=== PATIENT | male | born 1940 | race Caucasian/White ===

== ENCOUNTER 2023-11-30 15:32 | Inpatient (IN) | payer MEDICARE, OTHER, SELFPAY ==
[2023-11-30] VITALS (8 sets, daily range): BP systolic 99–127; BP diastolic 58–72; PULSE 91–122; RESP 16–30; TEMP 36.7–37.1; O2SAT 95–100; BMI 21.3
--- NOTE | ~2023-11-30 | XR_ITS ---
XR chest 2V 11/30/2023 16:38 Indication: Shortness of breath with chest pain Procedure: 2 view chest Comparison: No prior studies for comparison. Findings: Heart size normal. There is left basilar atelectasis. No focal air space disease, pulmonary edema, pleural effusion or suspected pneumothorax. There is a coronary artery stent. Impression: 1: Left basilar atelectasis. Reviewed, dictated and finalized at location B. Impression: 1: Left basilar atelectasis.
--- NOTE | ~2023-11-30 | XR_ITS ---
XR chest 2V DATE: 12/02/2023 12:46 INDICATION: Pneumonia TECHNIQUE: AP and lateral views COMPARISON: 11/30/2023 2 view chest 11/30/2023 CTA chest FINDINGS: Normal heart size. Coronary artery calcification. Aortic calcification. No hilar or mediast inal enlargement. No pulmonary infiltrate or consolidation, pleural effusion or pulmonary vascular congestion or pneumo thorax. Osteopenia. Degenerative spurring and dextro scoliosis of the thoracic spine. IMPRESSION: Coronary artery calcification Aortic calcification No active cardiopulmonary disease Osteopenia Reviewed, dictated and finalized at location A.
--- NOTE | ~2023-11-30 | CT_ITS ---
EXAMINATION: CT brain wo con DATE: 11/30/2023 18:59 INDICATION: generalized weakness . TECHNIQUE: Computed tomography (CT) of the head was performed without intravenous contrast. The mA wa s adjusted according to patient size. Iterative reconstruction technique was employed. The dose-lengt h product was 605.33 mGy-cm. COMPARISON: None. FINDINGS: No acute intracranial hemorrhage or extra-axial fluid collection. No hydrocephalus, mass, or herniation. No acute ischemic infarct. Unremarkable dural venous sinus attenuation. No acute osseous abnormality. The aerated spaces are clear. Moderate atrophy and chronic white matter change. Atherosclerotic intracranial calcification. Bilater al lens replacements. Chronic appearing left medial orbital wall fracture. IMPRESSION: No acute intracranial process. Reviewed, dictated and finalized at location K.
--- NOTE | ~2023-11-30 | CT_ITS ---
EXAMINATION: CTA chest PE protocol DATE: 11/30/2023 17:55 INDICATION: hypoxia, tachycardia. TECHNIQUE: Computed tomography angiography (CTA) of the chest was performed with 100 mL Omnipaque-350 intravenous contrast timed to evaluate the pulmonary arteries. Coronal maximum intensity projection 3D-reconstructions were created by the technologist. The dose-length product (DLP) was 458.35 mGy-cm. Automated exposure control and iterative reconstruction technique were employed. COMPARISON: X-ray chest, same date. FINDINGS: Lung parenchyma and airways: Clear. Pleura: Unremarkable. Thoracic inlet, axillae and chest wall: Unremarkable. Thoracic aorta: No significant dilation. No dissection. Mediastinum: Dilated central pulmonary arteries, as can be seen with pulmonary arterial hypertension. Heart and pericardium: Normal. Coronary artery calcifications: Moderate. Upper abdomen: No significant finding. Bones: No acute osseous finding. Pulmonary arteries: Study quality: Adequate. No pulmonary emboli detected. IMPRESSION: No CT evidence of acute pulmonary embolus. No acute process detected in the chest. Reviewed, dictated and finalized at location K.
--- NOTE | 2023-11-30 16:18 | ECG_ITS ---
Measurements Intervals [facility] Rate: 116 P: 64 NC: 174 QRS: 64 QRSD: 75 T: 78 QT: 319 QTc: 445 Interpretive Statements SINUS TACHYCARDIA CANNOT RULE OUT SEPTAL INFARCT, AGE INDETERMINATE MINIMAL Q WAVES- HIGH LATERAL LEADS BASELINE ARTIFACT- I, II, AVR, AVL ABNORMAL ECG NO PREVIOUS ECG AVAILABLE FOR COMPARISON Electronically Signed On 11-30-2023 16:29:24 CDT by Shayan Solorzano D.O.
--- NOTE | 2023-11-30 16:29 | ED.SOB ---
HPI - SOB/Dyspnea General Chief Complaint: Shortness of Breath/Dyspnea <Eliz Ma PA-C - Last Filed: 12/02/23 10:16> Stated Complaint: shortness of breath <Eliz Ma PA-C - Last Filed: 12/02/23 10:16> Time Seen by Provider: 11/30/23 16:15 <Eliz Ma PA-C - Last Filed: 12/02/23 10:16> Focused HPI: This is an 83-year-old male that presents to the emergency department for shortness of breath. Ongoing over the last couple of weeks. Reports he was seen at a another hospital for this and hospitalized for 3 days. They were unsure what was causing his symptoms. His family member brought him in here for further evaluation. Reports a cough. Denies fever, chest pain or lower extremity edema. GENERAL: Elderly, well-nourished, and in no acute distress. HEAD: Normocephalic, atraumatic. CHEST: Clear to auscultation. ?No respiratory distress. HEART: Tachycardic, regular rhythm.? NEURO: ?Alert and oriented x3. Patient screened in triage and initial orders placed.? ?Additional care and disposition to be based upon?diagnostic testing and treatment. <Eliz Ma PA-C - Last Filed: 12/02/23 10:16> Related Data Home Medications: Home Medications Medication Instructions Recorded Confirmed acetaminophen 500 mg tablet 500 mg BID pain 11/30/23 11/30/23 clopidogrel 75 mg tablet 75 mg DAILY 11/30/23 11/30/23 dutasteride 0.5 mg-tamsulosin ER 0.5 cap PO DAILY 11/30/23 11/30/23 0.4 mg capsule ext.release 24hr mphas famotidine 20 mg tablet 20 mg DAILY 11/30/23 11/30/23 ferrous sulfate 325 mg (65 mg 325 mg BID 11/30/23 11/30/23 iron) tablet (FeroSul) insulin glargine 100 unit/mL 10 unit subcut HS 11/30/23 12/01/23 subcutaneous solution (Lantus U-100 Insulin) isosorbide mononitrate 30 mg 30 mg PO DAILY 11/30/23 11/30/23 tablet,extended release 24 hr metformin 1,000 mg tablet 1,000 mg BID 11/30/23 11/30/23 mirabegron 25 mg tablet,extended 25 mg PO DAILY 11/30/23 11/30/23 release 24 hr (Myrbetriq) simvastatin 40 mg tablet 40 mg DAILY 11/30/23 11/30/23 <Eliz Ma PA-C - Last Filed: 12/02/23 10:16> Allergies/Adverse Reactions: Allergies Allergy/AdvReac Type Severity Reaction Status Date / Time No Known Allergies Allergy Verified 11/30/23 15:33 <Eliz Ma PA-C - Last Filed: 12/02/23 10:16> Review of Systems Review of Systems: CONST: No fever. HEENT: No sore throat C/V: No chest pain RESP: Short of breath GI: No abdominal pain but loss of appetite : No dysuria. M/S: No joint pain. SKIN: No rash. NEURO: Possible left-sided weakness compared to right for the last month PSYCH: [No depression] <Glenys Cai MD - Last Filed: 11/30/23 18:43> [facility] Past Medical History Medical History: Medical History (Updated 12/02/23 @ 10:15 by Eliz Ma PA-C) Essential hypertension History of coronary artery disease Insulin dependent diabetes mellitus <Eliz Ma PA-C - Last Filed: 12/02/23 10:16> Social History Social History: Social History Smoking status: Never smoker Second hand tobacco smoke exposure: No Alcohol intake: never Substance use: never Do You Feel Safe in your Home?: Yes Lack of Transportation: No Lack of Food: Never True Current Housing: I Have Housing Concerned About Future Housing: No Difficulty Paying Gas/Electric Bills: No Difficulty Paying for Meds: No Currently Unemployed: No Education: Associate Degree Difficulty w/ Childcare or Family Care: No Spiritual care concerns: No <Eliz Ma PA-C - Last Filed: 12/02/23 10:16> Exam Narrative: EXAMINATION OF ORGAN SYSTEMS/BODY AREAS: Constitutional: Vital signs per nursing GENERAL:[No acute distress, non-toxic appearing.] Appears quite tired. HEAD: Normal with no signs of head trauma. EYES: EOMI, conjunctiva normal ENT: Hearing grossly intact LUNGS: Nonlabo
[2023-11-30 16:37] LABS: Basophils Percent Auto 0.2 % (0.2-1.2); Eosinophils Percent Auto 0.1 % (0-4.4); Hematocrit 31.9 % (42.0-52.0); Hemoglobin 10.2 g/dL (14.0-18.0); Immature Granulocyte Absolute 0.08 K/mm3 (0.00-0.031); Lymphocytes Absolute Auto 1.88 K/mm3 (0.9-3.2); Lymphocytes Percent Auto 22.4 % (18.3-44.2); Mean Corpuscular Hemoglobin 28.1 pg (26-34); Mean Corpuscular Volume 87.9 fl (80-100); Mean Platelet Volume 10.6 fl (7.4-10.4); Monocytes Absolute Auto 1.5 K/mm3 (0.1-0.6); Monocytes Percent Auto 18.4 % (2.6-8.5); Neutrophils Absolute Auto 4.9 K/mm3 (1.3-6.7); Neutrophils Percent Auto 57.9 % (45.5-73.1); Platelet Count Result 128 k/mm3 (150-375); Red Blood Count 3.63 M/mm3 (4.6-6.20); Red Cell Distribution Width 16.7 % (11.5-14.5); White Blood Count 8.4 K/mm3 (4.5-10.0)
[2023-11-30 16:48] LABS: INR 1.1; Prothrombin Time 14.8 Seconds (11.1-14.7)
[2023-11-30 16:49] LABS: Alanine Aminotransferase 49 U/L (6-50); Albumin Level 3.2 g/dL (3.5-5.1); Alkaline Phosphatase 238 U/L (38-126); Anion Gap 8 mmol/L (4-12); Aspartate Amino Transferase 54 U/L (17-59); Blood Urea Nitrogen 20 mg/dL (9-20); Calcium 8.7 mg/dL (8.4-10.2); Carbon Dioxide 22 mmol/L (22-30); Chloride 97 mmol/L (98-107); Estimated CRCL calculation 50 ml/min; Estimated Glomerular Filt Rate > 60; Glucose 259 mg/dL (65-110); Lactic Acid Reflex 3.6 mmol/L (0.7-2.0); Potassium 4.9 mmol/L (3.4-5.0); Sodium 127 mmol/L (137-145)
[2023-11-30 17:02] LABS: D Dimer 0.87 ug/mL (<0.48)
[2023-11-30] MEDS: LACTATED RINGERS 1,000 ML 999 ML IV CONT (17:14)
[2023-11-30 17:24] LABS: NT Pro B Type Natriuretic Pept 799 pg/mL (19.9-100)
[2023-11-30 17:38] LABS: Influenza A QL RT-PCR Negative (Negative); Influenza B QL RT-PCR Negative (Negative); RSV RNA, RT-PCR Negative (Negative); SARS-CoV-2 RNA PCR Negative (Negative)
--- NOTE | 2023-11-30 18:44 | PC.NURSE ---
pt unable to urinate at this time. pt educated to use call light with any urge to urinate
[2023-11-30 18:54] LABS: Glucose Point of Care 187 mg/dl (65-105)
[2023-11-30 18:57] LABS: Troponin I < 0.012 ng/mL (0.000-0.034)
[2023-11-30 19:29] LABS: Appearance Urine Clear (Clear); Bilirubin Urine Negative (Negative); Blood Urine Negative (Negative); Color Urine Yellow (Yellow); Glucose Urine UA Negative (Negative); Ketones Urine Negative (Negative); Leukocyte Esterase Ur Negative LEU/UL (Negative); Nitrate Urine Negative (Negative); Protein Urine Negative (Negative); pH Urine 5.5 (5.0-9.0)
[2023-11-30 19:32] LABS: Add Urine Microscopic? NO
[2023-11-30 19:34] LABS: Reflex Lactic Acid Yes or No Add Lactic
[2023-11-30 20:05] LABS: Lactic Acid 1.7 mmol/L (0.7-2.0)
[2023-11-30 20:33] LABS: Glucose Point of Care 194 mg/dl (65-105)
[2023-11-30 21:00] LABS: Troponin I < 0.012 ng/mL (0.000-0.034)
[2023-11-30] MEDS: SODIUM CHLORIDE 0.9% IV 1,000 ML 100 ML IV CONT (21:05)
--- NOTE | 2023-11-30 23:01 | ADMGEN ---
This patient, Farhan Villalta, was admitted to [facility] Surg Room 322-02. Patient/family oriented to hospital policies and general routines including ID bracelet, bed and alarms, visiting hours, pain management, procedures, bathroom and other care routines, personal items, smoking policy, room service/diet, and visiting hours. Information on how to activate the Rapid Response Team has been discussed. Patient/Family are encouraged to report perceived risks to care and to ask questions if they do not understand what they are told or what they should do.
[2023-11-30 23:15] LABS: Glucose Point of Care 199 mg/dl (65-105)
[2023-12-01] VITALS (11 sets, daily range): BP systolic 92–111; BP diastolic 56–78; PULSE 82–97; RESP 15–18; TEMP 36.2–37.3; O2SAT 98–99
--- NOTE | 2023-12-01 | ECHO_ITS ---
Patient Info Name: Farhan Villalta Age: 83 years : 1940 Gender: Male Ht: 72 in Wt: 160 lbs BSA: 1.92 m2 HR: 83 bpm BP: 111 / 78 mmHg Heart Rhythm: Sinus Rhythm Technical Quality: Good Exam Date: 12/01/2023 11:33 AM Exam Location: Echo Lab Patient Status: Inpatient Admit Date: 11/30/2023 Staff Ordering Physician: Natanael Crawford MD Hand Miter Operator: Rebecca Baumann RDCS Attending Provider: Geoff Ochoa MD Referring Physician: Yvette MCDOWELL; Exam Type: CA echo doppler color flow Study Info Indications - chf Complete two-dimensional, color flow and Doppler transthoracic echocardiogram is performed. Summary 1. Complete two-dimensional, color flow and Doppler transthoracic echocardiogram is performed. 2. Technically difficult study with limited views. Definity contrast enhancement administered. 3. Left ventricular chamber dimension is normal. 4. Left ventricular systolic function is normal, estimated at 55-60% with hypokinesis of the apical lateral and mid anterolateral wall. However, given poor endomyocardial border definition more definitive assessment limited. 5. There is no increased left ventricular wall thickness. 6. The left ventricular diastolic function is grade I diastolic dysfunction. Left Ventricle Left ventricular chamber dimension is normal. Left ventricular systolic function is normal, estimated at 55-60% with hypokinesis of the apical lateral and mid anterolateral wall. However, given poor endomyocardial border definition more definitive assessment limited. There is no increased left ventricular wall thickness. The left ventricular diastolic function is grade I diastolic dysfunction. Technically difficult study with limited views. Definity contrast enhancement administered. Right Ventricle Right ventricular chamber dimension is normal. Right ventricular systolic function is normal. Left Atria Left atrial chamber dimension is normal. Right Atria Right atrial chamber dimension is normal. Aortic Valve The aortic valve is not well visualized. There is no aortic valve stenosis. There is trace aortic valve regurgitation. Pulmonic Valve The pulmonic valve is not well visualized. Mitral Valve The mitral valve has thickened leaflets. There is trace mitral valve regurgitation. The mitral valve annulus is moderately calcified. Tricuspid Valve The tricuspid valve leaflets are normal. There is trace tricuspid valve regurgitation. No pulmonary hypertension, estimated pulmonary arterial systolic pressure is 18 mmHg. Pericardium/Pleural The pericardium appears not well visualized. There is trivial pericardial effusion. Inferior Vena Cava Normal inferior vena cava with >50% collapse upon inspiration consistent with normal right atrial pressure, 5 mmHg. Aorta The aortic root size at the sinus of Valsalva is normal. There is mild aortic atherosclerosis. Left Ventricular Outflow Tract Name Value Normal LVOT 2D LVOT Diameter 2.0 cm LVOT Doppler LVOT Peak Gradient 3 mmHg LVOT Mean Gradient 2 mmHg LVOT VTI 19 cm LVOT VTI/AV VTI Ratio 1.2 LVOT Stroke Volume
[2023-12-01 07:41] LABS: Glucose Point of Care 138 mg/dl (65-105)
--- NOTE | 2023-12-01 08:38 | PM.IMHP ---
H&P: HPI History of Present Illness Date/Time: 12/01/23 08:38 Chief Complaint: SOB 2 days Generalized weakness Narrative: 83 years old will set her up with his came in the emergency room with complaints of generalized weakness and shortness of breath going up last 2 days. Patient has history of hypertension contacted and diabetes and was taking his medications as prescribed. According to the patient for the last few days without any better, started having generalized weakness and increased shortness of breath. Patient denies any orthopnea or proximal nocturnal dyspnea. Patient is a chest pain. Patient denies any fever chills. ER workup showed that patient has increased BNP level possible heart failure. Patient CT chest was negative for pulmonary embolism. Patient cardiac enzymes are negative. Patient is admitted for further evaluation treatment. Review of Systems Review of Systems: All systems reviewed & are unremarkable except as noted in HPI and below (the history and physical examination.) [facility] Social History Social History Smoking status: Never smoker Second hand tobacco smoke exposure: No Alcohol intake: never Substance use: never Do You Feel Safe in your Home?: Yes Lack of Transportation: No Lack of Food: Never True Current Housing: I Have Housing Concerned About Future Housing: No Difficulty Paying Gas/Electric Bills: No Difficulty Paying for Meds: No Currently Unemployed: No Education: Associate Degree Difficulty w/ Childcare or Family Care: No Spiritual care concerns: No Meds Home Medications and Allergies Home Medications Medication Instructions Recorded Confirmed Type acetaminophen 500 mg tablet 500 mg BID pain 11/30/23 11/30/23 History clopidogrel 75 mg tablet 75 mg DAILY 11/30/23 11/30/23 History dutasteride 0.5 mg-tamsulosin ER 0.5 cap PO DAILY 11/30/23 11/30/23 History 0.4 mg capsule ext.release 24hr mphas famotidine 20 mg tablet 20 mg DAILY 11/30/23 11/30/23 History ferrous sulfate 325 mg (65 mg 325 mg BID 11/30/23 11/30/23 History iron) tablet (FeroSul) insulin glargine 100 unit/mL 10 unit subcut HS 11/30/23 12/01/23 History subcutaneous solution (Lantus U-100 Insulin) isosorbide mononitrate 30 mg 30 mg PO DAILY 11/30/23 11/30/23 History tablet,extended release 24 hr metformin 1,000 mg tablet 1,000 mg BID 11/30/23 11/30/23 History mirabegron 25 mg tablet,extended 25 mg PO DAILY 11/30/23 11/30/23 History release 24 hr (Myrbetriq) simvastatin 40 mg tablet 40 mg DAILY 11/30/23 11/30/23 History Allergies Allergy/AdvReac Type Severity Reaction Status Date / Time No Known Allergies Allergy Verified 11/30/23 15:33 Vital Signs Vital Signs - 24 hr 11/30/23 16:11 11/30/23 16:50 11/30/23 16:50 Temperature 37.1 C Pulse Rate 120 H 122 H Respiratory Rate 18 Blood Pressure 99/72 L Pulse Oximetry 100 98 Oxygen Delivery Room Air Room Air 11/30/23 16:51 11/30/23 17:16 11/30/23 19:58 Temperature Pulse Rate 121 H 116 H 97 Respiratory Rate 22 H 23 H 18 Blood Pressure 123/62 110/67 101/58 L Pulse Oximetry 97 95 95 Oxygen Delivery 11/30/23 21:57 11/30/23 22:37 11/30/23 23:20 Temperature 36.7 C Pulse Rate 91 91 95 Respiratory Rate 30 H 29 H 16 Blood Pressure 100/60 105/62 127/68 Pulse Oximetry 97 96 96 Oxygen Delivery 12/01/23 00:00 12/01/23 04:00 12/01/23 05:18 Temperature 36.2 C L Pulse Rate 90 82 83 Respiratory Rate 18 Blood Pressure 111/78 Pulse Oximetry 99 Oxygen Delivery Exam Narrative: EXAMINATION OF ORGAN SYSTEMS/BODY AREAS: Constitutional: Vital signs per nursing GENERAL:[No acute distress, non-toxic appearing.] Appears quite tired. HEAD:? Normal with no signs of head trauma. EYES:? EOMI, conjunctiva normal ENT:? Hearing grossly intact LUNGS: AIr entry decreased, few rales at bases HEART:? Tachycardic ABD:? [Sof
[2023-12-01] MEDS: ACETAMINOPHEN 500 MG TABLET PO ×2 (09:37→16:43)
[2023-12-01] MEDS: ISOSORBIDE MONONITRATE 30 MG TAB.ER.24H PO (09:37)
[2023-12-01] MEDS: SIMVASTATIN 20 MG TABLET 40 MG PO (09:37)
[2023-12-01] MEDS: FAMOTIDINE 20 MG TABLET PO (09:37)
[2023-12-01] MEDS: MIRABEGRON 25 MG ER TABLET PO (09:37)
[2023-12-01] MEDS: FUROSEMIDE INJ 40 MG/4 ML VIAL IV PUSH (09:38)
[2023-12-01] MEDS: CLOPIDOGREL BISULFATE 75 MG TABLET PO (09:38)
[2023-12-01] MEDS: POTASSIUM CHLORIDE 20 MEQ ER TABLET PO (09:38)
[2023-12-01] MEDS: FERROUS SULFATE DRIED 142 MG TABCR PO (09:38)
[2023-12-01 11:47] LABS: Glucose Point of Care 243 mg/dl (65-105)
[2023-12-01] MEDS: DUTASTERIDE 0.5 MG CAPSULE PO (16:43)
[2023-12-01] MEDS: TAMSULOSIN HCL 0.4 MG CAPSULE PO (16:43)
[2023-12-01 16:44] LABS: Glucose Point of Care 246 mg/dl (65-105)
[2023-12-01] MEDS: INSULIN GLARGINE (*BKC) 100 UNITS/ML 10 UNITS SUB-Q (19:59)
[2023-12-01 20:35] LABS: Glucose Point of Care 217 mg/dl (65-105)
[2023-12-02] VITALS (10 sets, daily range): BP systolic 84–116; BP diastolic 50–69; PULSE 74–104; RESP 16–20; TEMP 36.5–37.4; O2SAT 94–97
[2023-12-02 07:56] LABS: Glucose Point of Care 176 mg/dl (65-105)
[2023-12-02] MEDS: MIRABEGRON 25 MG ER TABLET PO (09:04)
[2023-12-02] MEDS: ISOSORBIDE MONONITRATE 30 MG TAB.ER.24H PO (09:04)
[2023-12-02] MEDS: ACETAMINOPHEN 500 MG TABLET PO ×2 (09:04→17:04)
[2023-12-02] MEDS: FAMOTIDINE 20 MG TABLET PO (09:05)
[2023-12-02] MEDS: SIMVASTATIN 20 MG TABLET 40 MG PO (09:05)
[2023-12-02] MEDS: DUTASTERIDE 0.5 MG CAPSULE PO (09:05)
[2023-12-02] MEDS: CLOPIDOGREL BISULFATE 75 MG TABLET PO (09:05)
[2023-12-02] MEDS: FERROUS SULFATE DRIED 142 MG TABCR PO (09:05)
[2023-12-02] MEDS: FUROSEMIDE INJ 40 MG/4 ML VIAL IV PUSH ×2 (09:05→17:04)
[2023-12-02] MEDS: POTASSIUM CHLORIDE 20 MEQ ER TABLET PO ×2 (09:05→17:04)
[2023-12-02] MEDS: TAMSULOSIN HCL 0.4 MG CAPSULE PO (09:06)
[2023-12-02] MEDS: ENOXAPARIN 40 MG/0.4 ML SYRINGE SUB-Q (09:11)
[2023-12-02 11:37] LABS: Glucose Point of Care 192 mg/dl (65-105)
[2023-12-02 12:05] LABS: Hematocrit 32.3 % (42.0-52.0); Hemoglobin 10.4 g/dL (14.0-18.0); Mean Corpuscular HGB Conc 32.2 g/dl (32-36); Mean Corpuscular Hemoglobin 27.8 pg (26-34); Mean Corpuscular Volume 86.4 fl (80-100); Mean Platelet Volume 11.1 fl (7.4-10.4); Platelet Count Result 129 k/mm3 (150-375); Red Blood Count 3.74 M/mm3 (4.6-6.20); Red Cell Distribution Width 16.8 % (11.5-14.5); White Blood Count 8.6 K/mm3 (4.5-10.0)
[2023-12-02 12:32] LABS: Alanine Aminotransferase 49 U/L (6-50); Albumin Level 3.1 g/dL (3.5-5.1); Alkaline Phosphatase 262 U/L (38-126); Anion Gap 5 mmol/L (4-12); Aspartate Amino Transferase 61 U/L (17-59); Bilirubin,Total 0.9 mg/dL (0.2-1.3); Blood Urea Nitrogen 17 mg/dL (9-20); Calcium 8.6 mg/dL (8.4-10.2); Carbon Dioxide 25 mmol/L (22-30); Chloride 97 mmol/L (98-107); Estimated CRCL calculation 59 ml/min; Estimated Glomerular Filt Rate > 60; Glucose 177 mg/dL (65-110); Potassium 4.2 mmol/L (3.4-5.0); Sodium 127 mmol/L (137-145)
[2023-12-02 12:44] LABS: NT Pro B Type Natriuretic Pept 965 pg/mL (19.9-100); Troponin I < 0.012 ng/mL (0.000-0.034)
--- NOTE | 2023-12-02 12:44 | PM.IMPN ---
Progress Note: A&P Assessment and Plan (1) Systolic CHF, acute on chronic: Code(s): I50.23 - Acute on chronic systolic (congestive) heart failure Status: Acute Assessment and Plan: With plan is to continue home medication and start IV Lasix. 2D echo. Monitor I's and O's. (2) History of coronary artery disease: Code(s): Z86.79 - Personal history of other diseases of the circulatory system Status: Inactive Assessment and Plan: Stable on current medications, will continue current treatment. (3) Essential hypertension: Code(s): I10 - Essential (primary) hypertension Status: Inactive Assessment and Plan: Stable on current medications, will continue current treatment. (4) Dyslipidemia: Code(s): E78.5 - Hyperlipidemia, unspecified Status: Acute Assessment and Plan: Stable on current medications, will continue current treatment. (5) Insulin dependent diabetes mellitus: Status: Inactive Assessment and Plan: Stable on current medications, will continue current treatment. (6) Hyponatremia: Code(s): E87.1 - Hypo-osmolality and hyponatremia Status: Acute Assessment and Plan: Sodium is 127 today repeat in am Subjective Date/time seen: 12/02/23 12:44 Interval history: Patient was seen during the morning round today Mild sob, no chest pain. No abdominal pain, no nausea Mood stable. Review of Systems Review of Systems: All systems reviewed & are unremarkable except as noted in HPI and below (the history and physical examination.) Exam Narrative: EXAMINATION OF ORGAN SYSTEMS/BODY AREAS: Constitutional: Vital signs per nursing GENERAL:[No acute distress, non-toxic appearing.] Appears quite tired. HEAD:? Normal with no signs of head trauma. EYES:? EOMI, conjunctiva normal ENT:? Hearing grossly intact LUNGS: AIr entry decreased, few rales at bases HEART:? Tachycardic ABD:? [Soft], [nontender to palpation] EXT: One plus edema SKIN:? [No rashes or lesions.] NEURO: [Alert and oriented x 3. No drift with upper or lower extremities but potentially slightly weaker to RLE compared to LLE. Normal coordination] PSYCH: Normal affect Objective Data Vital Signs Vital Signs: Vital Signs - 24 hr 12/01/23 14:53 12/01/23 15:14 12/01/23 15:27 Temperature 36.7 C Pulse Rate 91 Respiratory Rate 15 Blood Pressure 92/56 L 110/58 L Pulse Oximetry 98 Oxygen Delivery Room Air 12/01/23 16:00 12/01/23 20:00 12/01/23 22:25 Temperature 37.3 C Pulse Rate 97 91 Respiratory Rate 18 Blood Pressure 110/63 Pulse Oximetry 98 Oxygen Delivery Room Air 12/01/23 20:00 12/02/23 00:00 12/02/23 04:00 Temperature Pulse Rate 93 97 87 Respiratory Rate Blood Pressure Pulse Oximetry Oxygen Delivery 12/02/23 06:58 12/02/23 08:00 Temperature 37.1 C Pulse Rate 88 Respiratory Rate 20 Blood Pressure 116/69 Pulse Oximetry 97 96 Oxygen Delivery Room Air Intake/Output Intake/Output: Intake & Output 11/29/23 11/30/23 12/01/23 12/02/23 23:59 23:59 23:59 23:59 Intake Total 1180 705 342 Output Total 175 325 Balance 1005 705 17 Meds/Results Medications: Active Medications Generic Name Dose Route Start Last Admin Trade Name Gueroq PRN Reason Stop Dose Admin Acetaminophen 500 mg 12/01/23 09:00 12/02/23 09:04 Acetaminophen 500 Mg Tablet PO 500 mg BID JULIETA Administration Clopidogrel Bisulfate 75 mg 12/01/23 09:00 12/02/23 09:05 Clopidogrel Bisulfate 75 Mg Tablet PO 75 mg DAILY JULIETA Administration Dutasteride 0.5 mg 12/01/23 14:50 12/02/23 09:05 Dutasteride 0.5 Mg Capsule PO 01/01/24 14:49 0.5 mg DAILY JULIETA Administration Enoxaparin Sodium 40 mg 12/01/23 09:00 12/02/23 09:11 Enoxaparin 40 Mg/0.4 Ml Syringe SUB-Q 40 mg DAILY JULIETA Administration Famotidine 20 mg 12/01/23 09:00 12/02/23 09:05 Famotidine 20 Mg Tablet PO 20 mg
[2023-12-02 16:36] LABS: Glucose Point of Care 249 mg/dl (65-105)
[2023-12-02] MEDS: INSULIN GLARGINE (*BKC) 100 UNITS/ML 10 UNITS SUB-Q (20:31)
[2023-12-02 22:21] LABS: Glucose Point of Care 214 mg/dl (65-105)
[2023-12-03] VITALS (10 sets, daily range): BP systolic 86–129; BP diastolic 56–70; PULSE 80–99; RESP 16–18; TEMP 36.8–37.5; O2SAT 94–100; BMI 21.3
[2023-12-03 08:31] LABS: Glucose Point of Care 201 mg/dl (65-105)
[2023-12-03] MEDS: MIRABEGRON 25 MG ER TABLET PO (09:06)
[2023-12-03] MEDS: SIMVASTATIN 20 MG TABLET 40 MG PO (09:07)
[2023-12-03] MEDS: DUTASTERIDE 0.5 MG CAPSULE PO (09:07)
[2023-12-03] MEDS: ACETAMINOPHEN 500 MG TABLET PO ×2 (09:07→17:25)
[2023-12-03] MEDS: FAMOTIDINE 20 MG TABLET PO (09:07)
[2023-12-03] MEDS: TAMSULOSIN HCL 0.4 MG CAPSULE PO (09:07)
[2023-12-03] MEDS: FERROUS SULFATE DRIED 142 MG TABCR PO (09:07)
[2023-12-03] MEDS: CLOPIDOGREL BISULFATE 75 MG TABLET PO (09:07)
[2023-12-03] MEDS: ISOSORBIDE MONONITRATE 30 MG TAB.ER.24H PO (09:07)
[2023-12-03] MEDS: POTASSIUM CHLORIDE 20 MEQ ER TABLET PO ×2 (09:08→17:24)
[2023-12-03] MEDS: ENOXAPARIN 40 MG/0.4 ML SYRINGE SUB-Q (09:21)
[2023-12-03 12:00] LABS: Glucose Point of Care 249 mg/dl (65-105)
[2023-12-03 12:13] LABS: Anion Gap 8 mmol/L (4-12); Blood Urea Nitrogen 23 mg/dL (9-20); Calcium 8.4 mg/dL (8.4-10.2); Carbon Dioxide 24 mmol/L (22-30); Chloride 94 mmol/L (98-107); Estimated CRCL calculation 53 ml/min; Estimated Glomerular Filt Rate > 60; Glucose 219 mg/dL (65-110); Potassium 4.3 mmol/L (3.4-5.0); Sodium 126 mmol/L (137-145)
[2023-12-03 14:17] LABS: Basophils Percent Auto 0.3 % (0.2-1.2); Eosinophils Percent Auto 0.4 % (0-4.4); Hematocrit 33.4 % (42.0-52.0); Hemoglobin 10.4 g/dL (14.0-18.0); Immature Granulocyte Absolute 0.05 K/mm3 (0.00-0.031); Immature Granulocyte Percent A 0.6 % (0-0.5); Lymphocytes Absolute Auto 1.42 K/mm3 (0.9-3.2); Lymphocytes Percent Auto 15.9 % (18.3-44.2); Mean Corpuscular HGB Conc 31.1 g/dl (32-36); Mean Corpuscular Hemoglobin 27.7 pg (26-34); Mean Corpuscular Volume 88.8 fl (80-100); Mean Platelet Volume 11.5 fl (7.4-10.4); Monocytes Absolute Auto 1.5 K/mm3 (0.1-0.6); Monocytes Percent Auto 16.2 % (2.6-8.5); Neutrophils Absolute Auto 5.9 K/mm3 (1.3-6.7); Neutrophils Percent Auto 66.6 % (45.5-73.1); Platelet Count Result 131 k/mm3 (150-375); Red Blood Count 3.76 M/mm3 (4.6-6.20); Red Cell Distribution Width 17.1 % (11.5-14.5); White Blood Count 8.9 K/mm3 (4.5-10.0)
--- NOTE | 2023-12-03 15:24 | PM.IMPN ---
Progress Note: A&P Assessment and Plan (1) Systolic CHF, acute on chronic: Code(s): I50.23 - Acute on chronic systolic (congestive) heart failure Status: Chronic Assessment and Plan: IV Lasix. ECHO Monitor I's and O's. (2) History of coronary artery disease: Code(s): Z86.79 - Personal history of other diseases of the circulatory system Status: Acute Assessment and Plan: continue home meds (3) Essential hypertension: Code(s): I10 - Essential (primary) hypertension Status: Chronic Assessment and Plan: continue home meds (4) Dyslipidemia: Code(s): E78.5 - Hyperlipidemia, unspecified Status: Chronic Assessment and Plan: continue current treatment. (5) Insulin dependent diabetes mellitus: Status: Chronic Assessment and Plan: accuchecks hypoglycemic protocol HS and low dose sliding scale ordered (6) Hyponatremia: Code(s): E87.1 - Hypo-osmolality and hyponatremia Status: Acute Assessment and Plan: Sodium is 126 today 2 bags NaCl sodium chloride tabs BID check urine pending Subjective Date/time seen: 12/03/23 15:24 Interval history: Patient reports he is about the same. Reports mild sob, denies chest pain. Will d/c [place] as repeat CXR indicates no signs of PNA. Patient remains hyponatremic. Will consult cardiology regarding abnormal ECHO. Edema and lungs improving. Review of Systems Review of Systems: All systems reviewed & are unremarkable except as noted in HPI and below (the history and physical examination.) Exam Narrative: GENERAL:No acute distress, non-toxic appearing sitting up in chair. EYES:? EOMI, PERRLA LUNGS: Lungs clear, mildly diminished in right lower lobe without wheezing. HEART:? RRR ABD:? soft, non-tender, BS present EXT: no edema present this am SKIN:?no wounds, rash or lesions NEURO: Alert and oriented x 3. No focal deficits. PSYCH: Normal affect Objective Data Vital Signs Vital Signs: Vital Signs - 24 hr 12/02/23 16:00 12/02/23 22:00 12/02/23 22:51 Temperature 99.3 F Pulse Rate 102 H 74 Respiratory Rate 18 Blood Pressure 84/50 L 90/60 L Pulse Oximetry 96 Oxygen Delivery 12/02/23 20:00 12/03/23 00:00 12/03/23 05:56 Temperature 99.5 F Pulse Rate 100 82 95 Respiratory Rate 18 Blood Pressure 100/70 Pulse Oximetry 95 Oxygen Delivery 12/03/23 04:00 12/03/23 08:00 Temperature Pulse Rate 93 Respiratory Rate Blood Pressure Pulse Oximetry 96 Oxygen Delivery Room Air Intake/Output Intake/Output: Intake & Output 11/30/23 12/01/23 12/02/23 12/03/23 23:59 23:59 23:59 23:59 Intake Total 1180 705 512 460 Output Total 175 725 500 Balance 1005 705 -213 -40 Meds/Results Medications: Active Medications Generic Name Dose Route Start Last Admin Trade Name Freq PRN Reason Stop Dose Admin Acetaminophen 500 mg 12/01/23 09:00 12/03/23 09:07 Acetaminophen 500 Mg Tablet PO 500 mg BID JULIETA Administration Clopidogrel Bisulfate 75 mg 12/01/23 09:00 12/03/23 09:07 Clopidogrel Bisulfate 75 Mg Tablet PO 75 mg DAILY JULIETA Administration Dutasteride 0.5 mg 12/01/23 14:50 12/03/23 09:07 Dutasteride 0.5 Mg Capsule PO 01/01/24 14:49 0.5 mg DAILY JULIETA Administration Enoxaparin Sodium 40 mg 12/01/23 09:00 12/03/23 09:21 Enoxaparin 40 Mg/0.4 Ml Syringe SUB-Q 40 mg DAILY JULIETA Administration Famotidine 20 mg 12/01/23 09:00 12/03/23 09:07 Famotidine 20 Mg Tablet PO 20 mg DAILY JULIETA Administration Ferrous Sulfate 142 mg 12/01/23 08:55 12/03/23 09:07 Ferrous Sulfate Dried 142 Mg Tabcr PO 142 mg DAILY@0800 JULIETA Administration Furosemide 40 mg 12/02/23 17:00 12/02/23 17:04 Furosemide Inj 40 Mg/4 Ml Vial IV PUSH 40 mg BID JULIETA Administration Insulin Glargine 10 units 12/01/23 21:00 12/02/23 20:31 Insulin Glargine (*Bkc) 100 U
[2023-12-03 16:35] LABS: Glucose Point of Care 219 mg/dl (65-105)
[2023-12-03] MEDS: INSULIN ASPART (*BKC) 100 UNITS/ML SUB-Q ×2 (17:25→21:50)
[2023-12-03] MEDS: SODIUM CHLORIDE 500 MG TABLET PO (17:34)
[2023-12-03 17:45] LABS: Alanine Aminotransferase 39 U/L (6-50); Albumin Level 2.8 g/dL (3.5-5.1); Alkaline Phosphatase 223 U/L (38-126); Anion Gap 6 mmol/L (4-12); Aspartate Amino Transferase 46 U/L (17-59); Bilirubin,Total 0.7 mg/dL (0.2-1.3); Blood Urea Nitrogen 24 mg/dL (9-20); Calcium 8.1 mg/dL (8.4-10.2); Carbon Dioxide 24 mmol/L (22-30); Chloride 96 mmol/L (98-107); Estimated CRCL calculation 59 ml/min; Estimated Glomerular Filt Rate > 60; Glucose 201 mg/dL (65-110); Sodium 126 mmol/L (137-145)
[2023-12-03] MEDS: INSULIN GLARGINE (*BKC) 100 UNITS/ML 10 UNITS SUB-Q (20:21)
[2023-12-03 21:42] LABS: Glucose Point of Care 201 mg/dl (65-105)
[2023-12-03] MEDS: MELATONIN 5 MG TABLET PO (22:40)
[2023-12-04] VITALS: PULSE 93
[2023-12-04 04:00] VITALS: PULSE 92
[2023-12-04 06:00] VITALS: BP 102/60; PULSE 95; RESP 16; TEMP 36.6; O2SAT 95
[2023-12-04 06:02] LABS: Creatinine Urine 113.4 mg/dL
[2023-12-04 06:07] LABS: Sodium Urine Random 42 meq/L
[2023-12-04 07:10] LABS: Hemoglobin 10.2 g/dL (14.0-18.0); Mean Corpuscular HGB Conc 30.9 g/dl (32-36); Mean Corpuscular Hemoglobin 27.6 pg (26-34); Mean Corpuscular Volume 89.2 fl (80-100); Mean Platelet Volume 11.4 fl (7.4-10.4); Platelet Count Result 133 k/mm3 (150-375); Red Cell Distribution Width 16.9 % (11.5-14.5); White Blood Count 7.7 K/mm3 (4.5-10.0)
--- NOTE | 2023-12-04 07:11 | PM.CNCAR ---
Assessment and Plan Assessment and plan (1) History of coronary artery disease: Code(s): Z86.79 - Personal history of other diseases of the circulatory system Status: Acute Assessment and Plan: History of CAD with previous interventions as detailed in the HPI. His most recent cardiac cath was in June 2023 which showed a diffusely diseased LAD, patent RCA stent, and 90% stenosis in the PDA which was intervened upon at that time. He reports no chest pain. CAD seems stable. Continue Plavix Unsure why he is not on ASA, it is on his outpatient medication list. Would resume unless there is a contraindication. Continue high intensity statin (2) Essential hypertension: Code(s): I10 - Essential (primary) hypertension Status: Chronic Assessment and Plan: BP at goal. Continue current medical regimen. (3) Dyslipidemia: Code(s): E78.5 - Hyperlipidemia, unspecified Status: Chronic Assessment and Plan: Continue high intensity statin (4) Shortness of breath: Code(s): R06.02 - Shortness of breath Status: Acute Assessment and Plan: Presents to the hospital with complaint of shortness of breath. Clinically he does not have any evidence of congestive heart failure, and his chest XR showed no pulmonary edema or pleural effusions. He has preserved LV systolic function with grade I diastolic dysfunction, but again does not appear to be in any decompensated heart failure. He was given 1 dose of IV furosemide and it has been held since 12/01, which is appropriate given that he appears to be euvolemic. I will discontinue the furosemide. No specific cardiac recommendations to make at this time. Cardiology will sign off. 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 Grady. History of Present Illness History of Present Illness Consult date/time: 12/04/23 07:11 Requesting physician: Rosanna Aguiar APRN Consult reason: Other (abnormal echo) Reason For Visit: generalized weakness, tachycardic, SOB Narrative: Farhan Villalta is an 83 year old male with coronary artery disease status post stenting to the LCX (2012), distal RCA (2010), and PDA (2022). He follows at [facility] with Dr. Grady. He comes to the hospital with a chief complaint of shortness of breath. He has been experiencing shortness of breath for a few weeks prior to his hospitalization. He denies any edema, orthopnea, chest pain, palpitations. He states he feels the same today as he did when he entered the hospital in terms of his breathing. Currently he is lying in bed comfortably breathing on room air. Review of Systems Review of Systems: All systems reviewed & are unremarkable except as noted in HPI and below PMFSH Past Medical History Medical History Essential hypertension History of coronary artery disease Insulin dependent diabetes mellitus Social History Social History Smoking status: Never smoker Second hand tobacco smoke exposure: No Alcohol intake: never Substance use: never Do You Feel Safe in your Home?: Yes Lack of Transportation: No Lack of Food: Never True Current Housing: I Have Housing Concerned About Future Housing: No Difficulty Paying Gas/Electric Bills: No Difficulty Paying for Meds: No Currently Unemployed: No Education: Associate Degree Difficulty w/ Childcare or Family Care: No Spiritual care concerns: No Meds Home Medications and Allergies Home Medications Medication Instructions Recorded Confirmed Type acetaminophen 500 mg tablet 500 mg BID pain 11/30/23 11/30/23 History clopidogrel 75 mg tablet 75 mg DAILY 11/30/23 11/30/23 History dutasteride 0.5 mg-tamsulosin ER 0.5 cap PO DAILY 11/30/23 11/30/23 History 0.4 mg capsule ext.release 24hr mphas famotidine 20 mg tablet 20 mg
[2023-12-04 07:35] LABS: Glucose Point of Care 190 mg/dl (65-105)
[2023-12-04 07:54] LABS: Band Neutrophils Percent 10 % (0-6); Hypochromasia 1+; Lymphocytes Absolute Manual 0.07 K/mm3 (1.1-4.5); Metamyelocytes Percent 1 %; Monocytes Absolute Manual 0.38 K/mm3 (0.1-0.90); Monocytes Percent Manual 5 % (3-9); Myelocytes Percent 1 %; Neutrophils Absolute Manual 7.08 K/mm3 (1.3-6.7); Neutrophils Percent Manual 82 % (46-73); Platelet Estimate Slightly Decreased (Adequate); Schistocytes None Seen; Total Cells Counted 100
[2023-12-04 07:55] LABS: Anisocytosis 2+; Microcytosis 1+ (NORMAL)
[2023-12-04 08:00] VITALS: PULSE 99
[2023-12-04 08:27] VITALS: O2SAT 94
[2023-12-04] MEDS: SODIUM CHLORIDE 500 MG TABLET PO (09:18)
[2023-12-04] MEDS: ISOSORBIDE MONONITRATE 30 MG TAB.ER.24H PO (09:18)
[2023-12-04] MEDS: FAMOTIDINE 20 MG TABLET PO (09:18)
[2023-12-04] MEDS: TAMSULOSIN HCL 0.4 MG CAPSULE PO (09:18)
[2023-12-04] MEDS: FERROUS SULFATE DRIED 142 MG TABCR PO (09:19)
[2023-12-04] MEDS: SIMVASTATIN 20 MG TABLET 40 MG PO (09:19)
[2023-12-04] MEDS: POTASSIUM CHLORIDE 20 MEQ ER TABLET PO (09:19)
[2023-12-04] MEDS: MIRABEGRON 25 MG ER TABLET PO (09:19)
[2023-12-04] MEDS: CLOPIDOGREL BISULFATE 75 MG TABLET PO (09:19)
[2023-12-04] MEDS: ACETAMINOPHEN 500 MG TABLET PO (09:19)
[2023-12-04] MEDS: DUTASTERIDE 0.5 MG CAPSULE PO (09:19)
[2023-12-04] MEDS: ENOXAPARIN 40 MG/0.4 ML SYRINGE SUB-Q (09:19)
[2023-12-04 11:14] LABS: Glucose Point of Care 239 mg/dl (65-105)
[2023-12-04 11:49] LABS: Anion Gap 7 mmol/L (4-12); Blood Urea Nitrogen 21 mg/dL (9-20); Calcium 8.3 mg/dL (8.4-10.2); Carbon Dioxide 22 mmol/L (22-30); Chloride 98 mmol/L (98-107); Estimated CRCL calculation 59 ml/min; Estimated Glomerular Filt Rate > 60; Glucose 174 mg/dL (65-110); Potassium 4.8 mmol/L (3.4-5.0); Sodium 127 mmol/L (137-145)
[2023-12-04] MEDS: INSULIN ASPART (*BKC) 100 UNITS/ML SUB-Q (12:18)
[2023-12-04 13:56] VITALS: BP 105/59; PULSE 93; RESP 16; TEMP 36.7; O2SAT 97
[2023-12-04 15:18] LABS: SARS-CoV-2 RNA PCR Negative (Negative)
--- NOTE | 2023-12-04 15:20 | PM.DS ---
DS: Admitting Diagnosis Discharge Date 12/04/2023 Admitting Diagnosis SOB DS: Discharge Diagnosis Discharge Diagnosis (1) Systolic CHF, acute on chronic: Code(s): I50.23 - Acute on chronic systolic (congestive) heart failure Status: Chronic Assessment and Plan: ECHO reviewed by cardiology, appears euvolemic no further intervention needed at this time (2) History of coronary artery disease: Code(s): Z86.79 - Personal history of other diseases of the circulatory system Status: Chronic (3) Essential hypertension: Code(s): I10 - Essential (primary) hypertension Status: Chronic (4) Dyslipidemia: Code(s): E78.5 - Hyperlipidemia, unspecified Status: Chronic (5) Insulin dependent diabetes mellitus: Status: Chronic Assessment and Plan: (6) Hyponatremia: Code(s): E87.1 - Hypo-osmolality and hyponatremia Status: Acute Assessment and Plan: Sodium is 126 today 2 bags NaCl sodium chloride tabs BID check urine pending DS: Summary Hospital Course Hospital Course: Patient is a 83 year old male with PMH of HTN, CHF, DM 2 admitted for generalized weakness and shortness of breath x2 days. Patient was taking his medications as prescribed. ER workup showed increased BNP. Patient CT chest was negative for pulmonary embolism. ECHO ordered and reviewed by cardiology. Patient cardiac enzymes are negative. Patient received IV Lasix with much improvement of his symptoms. Hyponatremia treated, Fena score showed pre-renal so this is likely due to his chronic HF. Will d/c on sodium chloride tab, repeat BMP in 1 week for monitoring and to follow up with PCP. Patient is stable for d/c to SNF today. Status at Discharge Functional status at discharge: uses cane/walker Overall status at discharge: patient is not back to baseline Time Spent with Patient Time attestation: Total time spent providing and/or coordinating discharge services: Exam Narrative: GENERAL:No acute distress, non-toxic appearing sitting up in chair. EYES:? EOMI, PERRLA LUNGS: Lungs clear, mildly diminished in right lower lobe without wheezing. HEART:? RRR ABD:? soft, non-tender, BS present EXT: no edema present this am SKIN:?no wounds, rash or lesions NEURO: Alert and oriented x 3. No focal deficits. PSYCH: Normal affect DS: Data Data Completed and Pending Labs on day of discharge: Labs from last 24 hours 12/04/23 12/04/23 12/04/23 14:34 11:08 07:28 WBC RBC Hgb Hct MCV MCH MCHC RDW Plt Count MPV Immature Gran % (Auto) Neut % (Auto) Lymph % (Auto) [place] % (Auto) Eos % (Auto) Baso % (Auto) Lymph # (Auto) [place] # (Auto) Eos # (Auto) Baso # (Auto) Abs Immat Gran (auto) Absolute Neuts (auto) Absolute Nucleated RBC Total Counted Neutrophils % (Manual) Band Neutrophils % Lymphocytes % (Manual) Monocytes % (Manual) Metamyelocytes % Myelocytes % Nucleated RBC % Abs Neuts (Manual) Abs Lymphs (Manual) Abs Monocytes (Manual) Platelet Estimate % Immature Plt Fraction Hypochromasia Anisocytosis Microcytosis Schistocytes Sodium Potassium Chloride Carbon Dioxide Anion Gap BUN Creatinine Estim Creat Clear Calc Estimated GFR Glucose POC Capillary Glucose 239 H 190 H Calcium Total Bilirubin AST ALT Alkaline Phosphatase Total Protein Albumin Urine Osmolality Ur Random Sodium Urine Creatinine SARS-CoV-2 RNA (RT-PCR) Negative 12/04/23 12/04/23 12/03/23 06:28 05:00 21:06 WBC 7.7 RBC 3.70 L Hgb 10.2 L Hct 33.0 L MCV 89.2 MCH 27.6 MCHC 30.9 L RDW 16.9 H Plt Count 133 L MPV 11.4 H Immature Gran % (Auto) Not Reportable Neut % (Auto) Not Reportable Lymph % (Auto) Not Reportable [place] % (Auto) Not Reportable Eos
[2023-12-04 16:17] LABS: Glucose Point of Care 212 mg/dl (65-105)
[2023-12-06 15:36] LABS: Osmolality, Urine 691 mOsm/kg (50-1200)
== END 2023-12-04 16:50 | DRG 292 ==
LOC: ANHED 18:43 → ANH3MEDSUR 22:28
PROVIDERS: Internal Medicine; Physician Assistant; Student in an Organized Health Care Education/Training Program; Admitting Provider Hospitalist; Emergency Provider Emergency Medicine; PCP Internal Medicine; Visit Provider Nurse Practitioner
DX: I11.0 Hypertensive heart disease with heart failure (principal); E87.1 Hypo-osmolality and hyponatremia; I50.32 Chronic diastolic (congestive) heart failure; E78.5 Hyperlipidemia, unspecified; E11.9 Type 2 diabetes mellitus without complications; I25.10 Atherosclerotic heart disease of native coronary artery without angina pectoris; Z20.822 Contact with and (suspected) exposure to COVID-19; R00.0 Tachycardia, unspecified; Z95.5 Presence of coronary angioplasty implant and graft
CPT/HCPCS: 36415; 70450; 71046; 71275; 80048; 80053; 81003; 82570; 82948; 83605; 83880; 83935; 84300; 84443; 84484; 85025; 85027; 85055; 85380; 85610; 85730; 87635; 87637; 93005; 93306; 96360; 97110; 97161; 97165; 97530; 97535; 99285; A9270; J0696; J1650; J1815; J1940; J7030; J7120; Q9967

== ENCOUNTER 2024-01-04 14:23 | Inpatient (IN) | payer MEDICARE, OTHER, SELFPAY ==
[2024-01-04] VITALS (12 sets, daily range): BP systolic 88–121; BP diastolic 16–73; PULSE 79–97; RESP 13–20; TEMP 36.2–36.7; O2SAT 98–100; BMI 21.9
--- NOTE | ~2024-01-04 | CT_ITS ---
EXAMINATION: CT brain wo con DATE: 01/04/2024 14:57 INDICATION: Confusion TECHNIQUE: Computed tomography (CT) of the head was performed without intravenous contrast. Sagittal and coronal reconstructions were performed. The mA was adjusted according to patient size. Iterative reconstruction technique was employed. The dose-length product was 605.33 mGy-cm. COMPARISON: head CT dated 11/30/2023 FINDINGS: No acute intracranial hemorrhage, acute infarction or abnormal extra axial fluid collection. There is mild scattered white matter hypoattenuation consistent with chronic small vessel ischemic disease. S ymmetric prominence of the sulci and ventricles consistent with moderate age-appropriate diffuse cere bral volume loss. No mass/mass effect. Changes of bilateral intraocular lens replacement. Again seen is a chronic blowout fracture of the medial wall of the left orbit. There appears to be an old fractu re deformity versus osteotomy involving the anterior wall of the right frontal sinus. The mastoid air cells are normal. Intracranial calcified cerebral atherosclerosis is noted. IMPRESSION: 1. No acute intracranial process. 2. Age-related changes including moderate diffuse volume loss and mild scattered white matter hypoatt enuation consistent with chronic small vessel ischemic disease. Reviewed, dictated and finalized at location A. IMPRESSION: 1. No acute intracranial process. 2. Age-related changes including moderate diffuse volume loss and mild scattere d white matter hypoattenuation consistent with chronic small vessel ischemic di sease.
--- NOTE | ~2024-01-04 | US_ITS ---
EXAMINATION: US right upper quadrant DATE: 01/06/2024 15:02 INDICATION: Elevated liver enzymes TECHNIQUE: Multiple grayscale and Doppler ultrasound images of the abdomen were obtained. COMPARISON: CT dated 03/02/2018 FINDINGS: Pancreas is poorly visualized due to combination of shadowing bowel gas and some fatty atrophy of the pancreas as seen on prior CT. Liver has normal echogenicity and contour, with a smooth surface. No l iver lesion identified. No intrahepatic biliary duct dilation suspected. Portal venous flow was seen in the hepatopetal, normal direction and has normal Doppler waveform. Gallbladder is not visualized a nd reportedly surgically absent. The common bile duct measures up to 7 mm in maximal diameter which i s within normal limits post cholecystectomy. Visualized portion of the right kidney demonstrates norm al echogenicity with no hydronephrosis. There is a small amount of perihepatic ascites about the caud al tip of the right hepatic lobe. There is also a right pleural effusion. Visualized portion of the a bdominal aorta and inferior vena cava are normal. IMPRESSION: 1. Right pleural effusion and small amount perihepatic ascites. 2. Common bile duct measures up to 7 mm in maximal diameter which is within normal limits post cholec ystectomy. No intrahepatic biliary ductal dilation. Reviewed, dictated and finalized at location A. IMPRESSION: 1. Right pleural effusion and small amount perihepatic ascites. 2. Common bile duct measures up to 7 mm in maximal diameter which is within nor mal limits post cholecystectomy. No intrahepatic biliary ductal dilation.
--- NOTE | ~2024-01-04 | CT_ITS ---
EXAMINATION: CT chest abdomen pelvis wo con DATE: 01/08/2024 14:27 INDICATION: Shortness of breath. Weakness. TECHNIQUE: Computed tomography (CT) of the chest, abdomen, and pelvis was performed without intraveno us contrast. Automated exposure control and iterative reconstruction technique were employed. The dos e-length product was 707.40 mGy-cm. COMPARISON: Chest CT 11/30/2023 FINDINGS: CHEST CT: The lungs show mild atelectasis. There are small pleural effusions. The heart size is normal. There i s a small pericardial effusion. Coronary artery calcifications are noted. 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 There are old healed bilateral rib fractures. There is severe cervical spondylosis and mil d thoracic spondylosis. ABDOMEN/PELVIS CT: The liver, spleen, pancreas, adrenal glands, and left kidney are normal. There is a 2.2 cm cyst in ri ght kidney. There is no urolithiasis. The prostate is moderately enlarged. There is diverticulosis of the colon without evidence of diverticulitis. There are no dilated loops of bowel. The appendix is n ot visualized. There is edema involving the intra-abdominal fat and body wall. There is a small volum e of ascites. There are no pathologically enlarged lymph nodes. There is a right inguinal hernia cont aining fat. 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 There is severe lumbar spondylosis. There is mild chronic anterior wedging of multiple vertebral bodies. IMPRESSION: 1. Small pleural effusions. 2. Small pericardial effusion. 3. Small volume of ascites. Reviewed, dictated and finalized at location A.
--- NOTE | ~2024-01-04 | XR_ITS ---
XR chest 2V 01/04/2024 14:52 Indication: Shortness of breath Procedure: 2 view chest Comparison: 12/02/2023 Findings: There is a posterior basilar airspace disease of the right lower lobe which may represent a telectasis or pneumonia. The lungs are hyperinflated which is consistent with, but not diagnostic of chronic obstructive pulmonary disease. Heart size normal. There is atherosclerosis. Impression: 1: Right lower lobe consolidation may represent atelectasis or pneumonia, best seen on lateral view. Reviewed, dictated and finalized at location B. Impression: 1: Right lower lobe consolidation may represent atelectasis or pneumonia, best seen on lateral view.
--- NOTE | ~2024-01-04 | XR_ITS ---
Portable chest x-ray Comparison: 01/12/2024 Clinical History: Interstitial edema Findings: There is probable moderate layering right pleural effusion and small left pleural effusion . There is moderate central pulmonary edema pattern. Cardiomediastinal silhouette is stable. Bones a nd soft tissues are unremarkable. Impression: Moderate central pulmonary edema pattern with bilateral layering pleural effusions, right greater jon n left. Reviewed, dictated and finalized at location . Impression: Moderate central pulmonary edema pattern with bilateral layering pleural effusi ons, right greater than left.
--- NOTE | ~2024-01-04 | XR_ITS ---
EXAMINATION: XR chest 2V DATE: 01/16/2024 10:31 INDICATION: Bilateral pleural effusions and hypoxia TECHNIQUE: frontal and lateral views of the chest were obtained. COMPARISON: Chest radiograph dated 01/15/2024 FINDINGS: Opacities in the posterior bilateral mid and lower lung zones consistent with small bilateral posteri or layering pleural effusions and associated compressive atelectasis versus pneumonia. No pneumothora x. The cardiomediastinal silhouette is normal. Coronary artery stenting. Moderate thoracic and lumbar spondylosis with chronic mild anterior wedging of a few thoracic and upper lumbar vertebral bodies. IMPRESSION: 1. Small bilateral pleural effusions with associated atelectasis and/or pneumonia. Reviewed, dictated and finalized at location A. IMPRESSION: 1. Small bilateral pleural effusions with associated atelectasis and/or pneumon ia.
--- NOTE | ~2024-01-04 | XR_ITS ---
EXAMINATION: XR chest 2V Exam Date/Time: 01/12/2024 21:10 CDT HISTORY: increasing O2 requirement, hypoxia Comparison: 01/04/[address] cap 01/08/2024. RESULT: Lines, tubes, and devices: None. Lungs and pleura: Moderate diffuse interstitial opacities with hazy peribronchial opacities. Bilater al posterior costophrenic angle blunting Cardiomediastinal silhouette: Stable. Other: No acute osseous or upper abdominal finding. IMPRESSION: Moderate interstitial edema. Small bilateral effusions. Reviewed, dictated and finalized at location K.
--- NOTE | ~2024-01-04 | XR_ITS ---
EXAM: XR abdomen/kub 1V DATE: 01/12/2024 21:24 HISTORY: N/V, abdominal distention . COMPARISON: CT CAP 01/08/2024. FINDINGS: Likely small bilateral pleural effusions. Air distended stomach, otherwise normal bowel ga s pattern. No organomegaly. No abnormal abdominal calcification. Partially visualized right hip arthr oplasty hardware. Degenerative changes in the spine. IMPRESSION: Gastric distention. Reviewed, dictated and finalized at location K. IMPRESSION: Gastric distention.
--- NOTE | 2024-01-04 14:25 | ECG_ITS ---
SEE SCANNED COPY FOR CONFIRMED REPORT MTDD
--- NOTE | 2024-01-04 14:39 | ED.WEAKNESS ---
HPI - Weakness General Chief complaint: Weakness Stated complaint: WEAKNESS Time Seen by Provider: 01/04/24 14:38 Source: patient and EMS Mode of arrival: EMS Limitations: no limitations History of Present Illness HPI Narrative: PATIENT IS 83 YEARS OLD WHITE MALE CAME FROM [facility] BY AMBULANCE COMPLAINING OF GENERAL WEAKNESS AND TROUBLE BREATHING OVER THE LAST 2 DAYS. HE DENIES ANY FEVER OR CHILLS OR NAUSEA OR VOMITING OR COUGHING. Related Data Home Medications Medication Instructions Recorded Confirmed acetaminophen 500 mg tablet 500 mg BID pain 11/30/23 01/02/24 clopidogrel 75 mg tablet 75 mg DAILY 11/30/23 01/02/24 dutasteride 0.5 mg-tamsulosin ER 0.5 cap PO DAILY 11/30/23 01/02/24 0.4 mg capsule ext.release 24hr mphas famotidine 20 mg tablet 20 mg DAILY 11/30/23 01/02/24 ferrous sulfate 325 mg (65 mg 325 mg BID 11/30/23 01/02/24 iron) tablet (FeroSul) insulin glargine 100 unit/mL 10 unit subcut HS 11/30/23 01/02/24 subcutaneous solution (Lantus U-100 Insulin) isosorbide mononitrate 30 mg 30 mg PO DAILY 11/30/23 01/02/24 tablet,extended release 24 hr metformin 1,000 mg tablet 1,000 mg BID 11/30/23 01/02/24 mirabegron 25 mg tablet,extended 25 mg PO DAILY 11/30/23 01/02/24 release 24 hr (Myrbetriq) simvastatin 40 mg tablet 40 mg DAILY 11/30/23 01/02/24 Allergies Allergy/AdvReac Type Severity Reaction Status Date / Time No Known Allergies Allergy Verified 11/30/23 15:33 Review of Systems Review of Systems: All systems reviewed & are unremarkable except as noted in HPI and below PMFSH Past Medical History Medical History Essential hypertension History of coronary artery disease Insulin dependent diabetes mellitus Social History Social History Smoking status: Never smoker Second hand tobacco smoke exposure: No Alcohol intake: never Substance use: never Do You Feel Safe in your Home?: Yes Lack of Transportation: No Lack of Food: Never True Current Housing: I Have Housing Concerned About Future Housing: No Difficulty Paying Gas/Electric Bills: No Difficulty Paying for Meds: No Currently Unemployed: No Education: Associate Degree Difficulty w/ Childcare or Family Care: No Spiritual care concerns: No Exam Narrative: GENERAL APPEARANCE: WELL-DEVELOPED, WELL-NOURISHED SKIN: PAIL HEAD: NORMOCEPHALIC, NONTRAUMATIC EYES: CLEAR CONJUNCTIVA ENT: OROPHARYNX NORMAL, EARS NORMAL, NOSE NORMAL NECK: SUPPLE, NONTENDER CHEST AND RESPIRATORY: AIRWAY PATENT, NO RESPIRATORY DISTRESS, NO ACCESSORY MUSCLE USE HEART: REGULAR RATE/RHYTHM ABDOMEN: SOFT, NONTENDER, NO ORGANOMEGALY, QUIET BOWEL SOUNDS, RECTAL EXAM SHOWED SHOWED YELLOW STOOL, GUAIAC NEGATIVE VASCULAR: NORMAL PERIPHERAL PULSES, NORMAL CAPILLARY REFILL. MUSCULOSKELETAL: NORMAL RANGE OF MOTION, NONTENDER BACK NEUROLOGIC: ALERT AND ORIENTED ?3, TRIMMER LOADER IS NORMAL TESTED, NO GROSS MOTOR DEFICIT Course Vital Signs Vital signs: Vital Signs Temperature 36.7 C 01/04/24 14:28 Pulse Rate 90 01/04/24 14:28 Respiratory Rate 20 01/04/24 14:28 Blood Pressure 90/16 L 01/04/24 14:28 Pulse Oximetry 98 01/04/24 14:28 Oxygen Delivery Room Air 01/04/24 14:28 Temperature 36.7 C 01/04/24 14:28 Pulse Rate 82 01/04/24 16:14 Respiratory Rate 20 01/04/24 16:14 Blood Pressure 88/57 L 01/04/24 16:14 Pulse Oximetry 98 01/04/24 16:14 Oxygen Delivery Room Air 01/04/24 14:28 MDM - Weakness MDM Narrative Medical decision making narrative: PATIENT CAME WITH WEAKNESS AND TROUBLE BREATHING, DIFF
[2024-01-04 14:43] LABS: Hematocrit 23.9 % (42.0-52.0); Hemoglobin 7.2 g/dL (14.0-18.0); Mean Corpuscular HGB Conc 30.1 g/dl (32-36); Mean Corpuscular Hemoglobin 25.8 pg (26-34); Mean Corpuscular Volume 85.7 fl (80-100); Mean Platelet Volume 10.8 fl (7.4-10.4); Platelet Count Result 117 k/mm3 (150-375); Red Blood Count 2.79 M/mm3 (4.6-6.20); Red Cell Distribution Width 21.6 % (11.5-14.5); White Blood Count 6.4 K/mm3 (4.5-10.0)
[2024-01-04 14:56] LABS: Alanine Aminotransferase 28 U/L (6-50); Albumin Level 1.9 g/dL (3.5-5.1); Alkaline Phosphatase 352 U/L (38-126); Anion Gap 4 mmol/L (4-12); Aspartate Amino Transferase 51 U/L (17-59); Bilirubin,Total 0.7 mg/dL (0.2-1.3); Blood Urea Nitrogen 12 mg/dL (9-20); Calcium 7.3 mg/dL (8.4-10.2); Carbon Dioxide 23 mmol/L (22-30); Chloride 99 mmol/L (98-107); Estimated Glomerular Filt Rate > 60; Glucose 110 mg/dL (65-110); Potassium 4.3 mmol/L (3.4-5.0); Sodium 126 mmol/L (137-145)
[2024-01-04 15:03] LABS: Basophils Absolute Manual 0.06 K/mm3 (0.0-0.1); Basophils Percent Manual 1 % (0-1); Lymphocytes Absolute Manual 0.38 K/mm3 (1.1-4.5); Monocytes Absolute Manual 0.57 K/mm3 (0.1-0.90); Monocytes Percent Manual 9 % (3-9); Neutrophils Percent Manual 84 % (46-73); Platelet Estimate Slightly Decreased (Adequate); Schistocytes None Seen; Total Cells Counted 100
[2024-01-04 15:04] LABS: Hypochromasia 2+
[2024-01-04 15:08] LABS: Appearance Urine Clear (Clear); Bacteria Urine None Seen /hpf; Bilirubin Urine Negative (Negative); Blood Urine Negative (Negative); Color Urine Yellow (Yellow); Glucose Urine UA Negative (Negative); Ketones Urine Negative (Negative); Leukocyte Esterase Ur Negative LEU/UL (Negative); Need Manual Microscopic Reviewed; Nitrate Urine Negative (Negative); Non Pathogenic Casts 0-2; Protein Urine Trace mg/dL (Negative); RBC Urine 0-2 /hpf (0-2); Specific Grav Ur 1.019 (1.001-1.035); Squamous Epithelial Cell Urine None Seen /hpf (Few); WBC Urine 0-5 /hpf (0-3)
[2024-01-04 15:09] LABS: Add Urine Microscopic? YES
[2024-01-04 15:51] LABS: Influenza A QL RT-PCR Negative (Negative); Influenza B QL RT-PCR Negative (Negative); RSV RNA, RT-PCR Negative (Negative); SARS-CoV-2 RNA PCR Negative (Negative)
[2024-01-04 16:21] LABS: NT Pro B Type Natriuretic Pept 1190 pg/mL (19.9-100)
[2024-01-04] MEDS: levoFLOXacin 750 MG/D5W 150 ML 750 MG/150 ML BAG 100 MG IVPB (17:00)
[2024-01-04 17:10] LABS: INR 1.2; Prothrombin Time 15.5 Seconds (11.1-14.7)
[2024-01-04 17:11] LABS: Partial Thromboplastin Time 41.9 Seconds (22.3-36.8)
--- NOTE | 2024-01-04 17:19 | PM.IMHP ---
H&P: HPI History of Present Illness Date/Time: 01/04/24 17:19 [facility] Past Medical History Medical History Essential hypertension History of coronary artery disease Insulin dependent diabetes mellitus Social History Social History Smoking status: Never smoker Second hand tobacco smoke exposure: No Alcohol intake: never Substance use: never Do You Feel Safe in your Home?: Yes Lack of Transportation: No Lack of Food: Never True Current Housing: I Have Housing Concerned About Future Housing: No Difficulty Paying Gas/Electric Bills: No Difficulty Paying for Meds: No Currently Unemployed: No Education: Associate Degree Difficulty w/ Childcare or Family Care: No Spiritual care concerns: No Meds Home Medications and Allergies Home Medications Medication Instructions Recorded Confirmed Type acetaminophen 500 mg tablet 500 mg BID pain 11/30/23 01/02/24 History clopidogrel 75 mg tablet 75 mg DAILY 11/30/23 01/02/24 History dutasteride 0.5 mg-tamsulosin ER 0.5 cap PO DAILY 11/30/23 01/02/24 History 0.4 mg capsule ext.release 24hr mphas famotidine 20 mg tablet 20 mg DAILY 11/30/23 01/02/24 History ferrous sulfate 325 mg (65 mg 325 mg BID 11/30/23 01/02/24 History iron) tablet (FeroSul) insulin glargine 100 unit/mL 10 unit subcut HS 11/30/23 01/02/24 History subcutaneous solution (Lantus U-100 Insulin) isosorbide mononitrate 30 mg 30 mg PO DAILY 11/30/23 01/02/24 History tablet,extended release 24 hr metformin 1,000 mg tablet 1,000 mg BID 11/30/23 01/02/24 History mirabegron 25 mg tablet,extended 25 mg PO DAILY 11/30/23 01/02/24 History release 24 hr (Myrbetriq) simvastatin 40 mg tablet 40 mg DAILY 11/30/23 01/02/24 History potassium chloride 20 mEq 20 meq PO BID #30 tabs 12/04/23 01/02/24 Rx tablet,extended release (K-Tab) sodium chloride 1,000 mg soluble 1,000 mg PO DAILY #15 tabs 12/04/23 01/02/24 Rx tablet Allergies Allergy/AdvReac Type Severity Reaction Status Date / Time No Known Allergies Allergy Verified 11/30/23 15:33 Vital Signs Vital Signs - 24 hr 01/04/24 14:28 01/04/24 16:14 Temperature 36.7 C Pulse Rate 90 82 Respiratory Rate 20 20 Blood Pressure 90/16 L 88/57 L Pulse Oximetry 98 98 Oxygen Delivery Room Air H&P: Results Labs Labs: Short CBC 01/04/24 Range/Units 14:39 WBC 6.4 (4.5-10.0) K/mm3 Hgb 7.2 L D (14.0-18.0) g/dL Hct 23.9 L (42.0-52.0) % Plt Count 117 L (150-375) k/mm3 BMP 01/04/24 14:39 Sodium 126 L Potassium 4.3 Chloride 99 Carbon Dioxide 23 BUN 12 D Creatinine 0.50 L Glucose 110 Calcium 7.3 L Liver Function 01/04/24 Range/Units 14:39 Total Bilirubin 0.7 (0.2-1.3) mg/dL AST 51 (17-59) U/L ALT 28 (6-50) U/L Alkaline Phosphatase 352 H (38-126) U/L Albumin 1.9 L (3.5-5.1) g/dL Urine 01/04/24 Range/Units 14:42 Urine Color Yellow (Yellow) Urine Appearance Clear (Clear) Urine pH 6.0 (5.0-9.0) Ur Specific [place] 1.019 (1.001-1.035) Urine Protein Trace (Negative) mg/dL Urine Glucose (UA) Negative (Negative) mg/dL
[2024-01-04 17:25] LABS: Lactic Acid Reflex 3.1 mmol/L (0.7-2.0)
[2024-01-04 17:38] LABS: CRP 17.1 mg/dL (<1.0)
[2024-01-04 18:21] LABS: MRSA (PCR) DETECTED (NOT DETECTE)
[2024-01-04] MEDS: CEFEPIME 2 GM/NS 50 ML 2 GM/50 ML BAG IVPB (18:29)
[2024-01-04] MEDS: VANCOMYCIN 2,000 MG/NS 500 ML 2,000 MG/500 ML BAG 250 MG IVPB (19:18)
--- NOTE | 2024-01-04 19:21 | PC.NURSE ---
Report given to Constance APARICIO, all questions answered
[2024-01-04 20:11] LABS: Reflex Lactic Acid Yes or No Add Lactic
[2024-01-04] MEDS: ALBUTEROL SULFATE NEB 2.5 MG/3 ML INH INHALATION (20:17)
--- NOTE | 2024-01-04 20:25 | PM.IMHP ---
H&P: HPI History of Present Illness Date/Time: 01/04/24 20:25 Chief Complaint: GENERALIZED WEAKNESS Narrative: this is an 83-year-old male with past medical history significant for insulin-dependent diabetes mellitus, hypertension, chronic hyponatremia, [facility] a [facility]. Was brought for evaluation to the emergency room due to generalized weakness. Patient states that this has been ongoing for 2 weeks however cannot really contribute in a meaningful way to history taking. According to medical records patient had shortness of breath. Preliminary workup was significant for chest x-ray with right lower lobe consolidation. Patient has been admitted for further evaluation management and treatment. XR chest 2V 01/04/2024 14:52 Indication: Shortness of breath Procedure: 2 view chest Comparison: 12/02/2023 Findings: There is a posterior basilar airspace disease of the right lower lobe which may represent atelectasis or pneumonia. The lungs are hyperinflated which is consistent with, but not diagnostic of chronic obstructive pulmonary disease. Heart size normal. There is atherosclerosis. Impression: 1: Right lower lobe consolidation may represent atelectasis or pneumonia, best seen on lateral view. EXAMINATION: CT brain wo con DATE: 01/04/2024 14:57 INDICATION: Confusion TECHNIQUE: Computed tomography (CT) of the head was performed without intravenous contrast. Sagittal and coronal reconstructions were performed. The mA was adjusted according to patient size. Iterative reconstruction technique was employed. The dose-length product was 605.33 mGy-cm. COMPARISON: head CT dated 11/30/2023 FINDINGS: No acute intracranial hemorrhage, acute infarction or abnormal extra axial fluid collection. There is mild scattered white matter hypoattenuation consistent with chronic small vessel ischemic disease. Symmetric prominence of the sulci and ventricles consistent with moderate age-appropriate diffuse cerebral volume loss. No mass/mass effect. Changes of bilateral intraocular lens replacement. Again seen is a chronic blowout fracture of the medial wall of the left orbit. There appears to be an old fracture deformity versus osteotomy involving the anterior wall of the right frontal sinus. The mastoid air cells are normal. Intracranial calcified cerebral atherosclerosis is noted. IMPRESSION: 1. No acute intracranial process. 2. Age-related changes including moderate diffuse volume loss and mild scattered white matter hypoattenuation consistent with chronic small vessel ischemic disease. Review of Systems Review of Systems: ROS unobtainable: Yes unobtainable due to medical condition ( Trouble remembering) PMFSH Past Medical History Medical History Essential hypertension History of coronary artery disease Insulin dependent diabetes mellitus Family History Family History Father Unknown family medical history Sibling Unknown family medical history Mother Myocardial infarct Social History Social History Smoking status: Never smoker Second hand tobacco smoke exposure: No Alcohol intake: never Substance use: never Substance use type: does not use Do You Feel Safe in your Home?: Yes Lack of Transportation: No Lack of Food: Never True Current Housing: I Have Housing Concerned About Future Housing: No Difficulty Paying Gas/Electric Bills: No Difficulty Paying for Meds: No Currently Unemployed: No Education: Associate Degree Difficulty w/ Childcare or Family Care: No Spiritual care concerns: No Meds Home Medications and Allergies Home Medications Medication Instructions Recorded Confirmed Type acetaminophen 500 mg tablet 500 mg PO BID pain 11/30/23 01/04/24 History clopidogrel 75 mg tablet 75 m
[2024-01-04] MEDS: SODIUM CHLORIDE 0.9% IV 1,000 ML 150 ML IV CONT (21:15)
--- NOTE | 2024-01-04 21:28 | ADMGEN ---
This patient, Farhan Villalta, was admitted to IMU Room 203-01 on 01/04/24 at 2045. Patient/family oriented to hospital policies and general routines including ID bracelet, bed and alarms, visiting hours, pain management, procedures, bathroom and other care routines, personal items, smoking policy, room service/diet, and visiting hours. Information on how to activate the Rapid Response Team has been discussed. Patient/Family are encouraged to report perceived risks to care and to ask questions if they do not understand what they are told or what they should do.
[2024-01-04 21:49] LABS: Lactic Acid 2.5 mmol/L (0.7-2.0)
[2024-01-05] VITALS (29 sets, daily range): BP systolic 98–123; BP diastolic 54–68; PULSE 76–102; RESP 16–22; TEMP 36.2–37.3; O2SAT 93–98
--- NOTE | 2024-01-05 00:12 | PC.NURSE ---
01/05/24-0012: Pt did receive a total of 2,300 ML of NS IVF bolus. MAR charting will not update to show the correct total amount given.
[2024-01-05] MEDS: CEFEPIME 2 GM/NS 50 ML 2 GM/50 ML BAG IVPB ×3 (00:24→15:17)
[2024-01-05] MEDS: ALBUTEROL SULFATE NEB 2.5 MG/3 ML INH INHALATION (01:59)
[2024-01-05] MEDS: SODIUM CHLORIDE 0.9% IV 1,000 ML 150 ML IV CONT (04:32)
[2024-01-05] MEDS: ACETAMINOPHEN 325 MG TABLET 650 MG PO (04:36)
[2024-01-05 04:51] LABS: Estimated CRCL calculation 93 ml/min; Estimated Glomerular Filt Rate > 60
[2024-01-05] MEDS: VANCOMYCIN 1,250 MG/NS 250 ML 1,250 MG/250 ML BAG 166.67 MG IVPB (06:00)
[2024-01-05 07:55] LABS: Glucose Point of Care 98 mg/dl (65-105)
[2024-01-05] MEDS: IPRATROPIUM 0.5 MG/ALBUTEROL SULFATE 2.5 MG AMPUL.NEB 3 ML INHALATION ×3 (08:55→21:23)
[2024-01-05] MEDS: INSULIN GLARGINE (*BKC) 100 UNITS/ML 10 UNITS SUB-Q ×2 (09:03→17:42)
[2024-01-05] MEDS: ACETAMINOPHEN 500 MG TABLET PO ×2 (09:05→17:46)
[2024-01-05] MEDS: ISOSORBIDE MONONITRATE 30 MG TAB.ER.24H PO (09:05)
[2024-01-05] MEDS: SERTRALINE HCL 50 MG TABLET PO ×2 (09:06→17:46)
[2024-01-05] MEDS: CLOPIDOGREL BISULFATE 75 MG TABLET PO (09:06)
[2024-01-05] MEDS: FAMOTIDINE 20 MG TABLET PO (09:06)
[2024-01-05] MEDS: FERROUS SULFATE 325 MG TABLET DR BY MOUTH (09:06)
[2024-01-05] MEDS: SODIUM CHLORIDE 1 GM TABLET PO ×2 (09:06→17:47)
[2024-01-05] MEDS: MIRABEGRON 25 MG ER TABLET PO (09:06)
[2024-01-05] MEDS: MUPIROCIN 2% OINT 22 GM TUBE 1 APPLIC EACH NARE ×2 (10:33→20:32)
[2024-01-05 11:36] LABS: Glucose Point of Care 224 mg/dl (65-105)
[2024-01-05] MEDS: INSULIN ASPART (*BKC) 100 UNITS/ML SUB-Q (11:42)
--- NOTE | 2024-01-05 12:14 | PM.IMPN ---
Progress Note: A&P Assessment and Plan (1) Pneumonia: Code(s): J18.9 - Pneumonia, unspecified organism Status: Acute (2) Hypo-osmolality and hyponatremia: Code(s): E87.1 - Hypo-osmolality and hyponatremia Status: Acute (3) Generalized weakness: Code(s): R53.1 - Weakness Status: Acute (4) Chronic hyponatremia: Code(s): E87.1 - Hypo-osmolality and hyponatremia Status: Acute (5) Chronic systolic (congestive) heart failure: Code(s): I50.22 - Chronic systolic (congestive) heart failure Status: Acute (6) Insulin dependent diabetes mellitus: Status: Chronic (7) Sepsis: Code(s): A41.9 - Sepsis, unspecified organism Status: Acute Plan This is a 83-year-old man coming from [place] is due to generalized weakness shortness of breath past fever chills nausea vomiting reported. He was hypotensive on arrival to the ED. Oxygen status was adequate. Laboratory workup revealed a BC of 6.4 hemoglobin of 7.2 showing a [address] head showed no acute abnormality Chest x-ray showed a right lower lobe consolidation consistent with pneumonia so had elevated lactic acid Sepsis secondary to pneumonia receive IV fluid in the ER BNP elevated at 1190 Urinalysis negative for UTI. MRSA swab was positive influenza RSV and COVID was negative. Patient started vancomycin cefepime and levofloxacin For hyponatremia added on sodium tablets looks like chronic hyponatremia similar levels in the past Generalized weakness PT OT Acute on chronic anemia hemoglobin down to 7.2 coag test was negative. Will continue to monitor no signs of bleeding Thrombocytopenia mild chronic History of dysphagia on thickened liquid speech to follow History of congestive heart failure diastolic euvolemic on evaluation. Recent echo with EF 55-60% with hypokinesis of the apical lateral and mid anterior. 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 Anxiety depression on sertraline Coronary artery disease Hypertension DVT prophylaxis Lovenox Subjective Date/time seen: 01/05/24 12:14 Interval history: Feels okay at better. Does not know why he is here. He Is from rehab facility. Review of Systems Review of Systems: All systems reviewed & are unremarkable except as noted in HPI and below Exam Narrative: GENERAL APPEARANCE: WELL-DEVELOPED, WELL-NOURISHED SKIN:? PALE, no rash HEAD: NORMOCEPHALIC, NONTRAUMATIC EYES: CLEAR CONJUNCTIVA ENT: OROPHARYNX NORMAL, EARS NORMAL, NOSE NORMAL NECK: SUPPLE, NONTENDER CHEST AND RESPIRATORY: AIRWAY PATENT, NO RESPIRATORY DISTRESS, NO ACCESSORY MUSCLE USE HEART: REGULAR RATE/RHYTHM ABDOMEN: SOFT, NONTENDER, NO ORGANOMEGALY VASCULAR: NORMAL PERIPHERAL PULSES, NORMAL CAPILLARY REFILL. 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 Objective Data Vital Signs Vital Signs: Vital Signs - 24 hr 01/04/24 14:28 01/04/24 16:14 01/04/24 18:25 Temperature 98.0 F Pulse Rate 90 82 79 Respiratory Rate 20 20 16 Blood Pressure 90/16 L 88/57 L 98/66 L Pulse Oximetry 98 98 100 Oxygen Delivery Room Air 01/04/24 19:48 01/04/24 20:17 01/04/24 20:20 Temperature 97.9 F Pulse Rate 88 86 86 Respiratory Rate 13 20 Blood Pressure 121/67 Pulse Oximetry 100 99 Oxygen Delivery Room Air 01/04/24 20:24 01/04/24 20:45 01/04/24 20:56 Temperature 97.4 F L Pulse Rate 82 93 93 Respiratory Rate 18 18 18 Blood Pressure 115/73 Pulse Oximetry 98 98 Oxygen Delivery Room Air 01/04/24 20:52 01/04/24 22:00 01/04/24 23:59 Temperature 97.1 F L Pulse Rate 97 93 87 Respiratory Rate 16 Blood Pressure 98/56 L Pulse Oximetry 98 Oxygen Delivery 01/04/24 23:59 01/05/24 00:00 01/05/24 00:00 Temperature Pulse Rate 87 87 92 Respiratory Rate 16 Blood Pressure Pulse Oxime
[2024-01-05 13:20] LABS: Basophils Percent Auto 0.3 % (0.2-1.2); Eosinophils Percent Auto 0.3 % (0-4.4); Hematocrit 22.8 % (42.0-52.0); Immature Granulocyte Absolute 0.05 K/mm3 (0.00-0.031); Immature Granulocyte Percent A 0.7 % (0-0.5); Lymphocytes Absolute Auto 0.83 K/mm3 (0.9-3.2); Lymphocytes Percent Auto 11.9 % (18.3-44.2); Mean Corpuscular HGB Conc 29.8 g/dl (32-36); Mean Corpuscular Hemoglobin 26.4 pg (26-34); Mean Corpuscular Volume 88.4 fl (80-100); Mean Platelet Volume 10.5 fl (7.4-10.4); Monocytes Absolute Auto 1.2 K/mm3 (0.1-0.6); Neutrophils Absolute Auto 4.9 K/mm3 (1.3-6.7); Neutrophils Percent Auto 69.8 % (45.5-73.1); Platelet Count Result 103 k/mm3 (150-375); Red Blood Count 2.58 M/mm3 (4.6-6.20)
[2024-01-05 13:21] LABS: Immature Reticulocyte Fraction 28.7 % (3.0-15.9); Reticulocyte Hemoglobin Conten 26.2 pg (28.2-36.6); Reticulocyte Percent 4.39 % (0.7-4.3); Reticulocytes Absolute 0.11 10^6/uL (0.02-0.10)
[2024-01-05 13:23] LABS: Hemoglobin 6.8 g/dL (14.0-18.0)
[2024-01-05 13:32] LABS: Alanine Aminotransferase 26 U/L (6-50); Albumin Level 1.8 g/dL (3.5-5.1); Alkaline Phosphatase 331 U/L (38-126); Anion Gap 6 mmol/L (4-12); Aspartate Amino Transferase 63 U/L (17-59); Bilirubin,Total 0.6 mg/dL (0.2-1.3); Blood Urea Nitrogen 10 mg/dL (9-20); Calcium 7.1 mg/dL (8.4-10.2); Carbon Dioxide 17 mmol/L (22-30); Chloride 107 mmol/L (98-107); Estimated CRCL calculation 93 ml/min; Estimated Glomerular Filt Rate > 60; Glucose 174 mg/dL (65-110); Magnesium 1.6 mg/dL (1.6-2.3); Potassium 3.7 mmol/L (3.4-5.0); Sodium 130 mmol/L (137-145)
[2024-01-05 13:33] LABS: Iron 24 ug/dL (49-181)
[2024-01-05 13:34] LABS: Lactate Dehydrogenase 291 U/L (120-246)
[2024-01-05 13:43] LABS: Percent Iron Saturation 13 % (20-50)
[2024-01-05] MEDS: SODIUM CHLORIDE 0.9% IV 250 ML 30 ML IV CONT (16:23)
[2024-01-05 16:51] LABS: Ferritin > 2000.00 ng/mL (11.1-264)
[2024-01-05 16:56] LABS: Glucose Point of Care 140 mg/dl (65-105)
[2024-01-05] MEDS: VANCOMYCIN 1,250 MG/NS 250 ML 1,250 MG/250 ML BAG 166.7 MG IVPB (17:40)
[2024-01-05] MEDS: levoFLOXacin 750 MG/D5W 150 ML 750 MG/150 ML BAG 100 MG IVPB (17:41)
[2024-01-05 19:56] LABS: Glucose Point of Care 193 mg/dl (65-105)
[2024-01-05] MEDS: DUTASTERIDE 0.5 MG CAPSULE PO (20:33)
[2024-01-05] MEDS: TAMSULOSIN HCL 0.4 MG CAPSULE PO (20:33)
[2024-01-05] MEDS: SIMVASTATIN 20 MG TABLET 40 MG PO (20:33)
[2024-01-06] VITALS (23 sets, daily range): BP systolic 96–123; BP diastolic 62–71; PULSE 77–103; RESP 16–20; TEMP 35.7–36.5; O2SAT 93–100
[2024-01-06] MEDS: CEFEPIME 2 GM/NS 50 ML 2 GM/50 ML BAG IVPB ×4 (00:18→23:21)
[2024-01-06 05:25] LABS: Basophils Percent Auto 0.5 % (0.2-1.2); Eosinophils Percent Auto 0.5 % (0-4.4); Hematocrit 30.7 % (42.0-52.0); Hemoglobin 9.4 g/dL (14.0-18.0); Immature Granulocyte Absolute 0.03 K/mm3 (0.00-0.031); Immature Granulocyte Percent A 0.5 % (0-0.5); Lymphocytes Absolute Auto 0.79 K/mm3 (0.9-3.2); Mean Corpuscular HGB Conc 30.6 g/dl (32-36); Mean Corpuscular Hemoglobin 26.7 pg (26-34); Mean Corpuscular Volume 87.2 fl (80-100); Mean Platelet Volume 10.4 fl (7.4-10.4); Monocytes Absolute Auto 1.1 K/mm3 (0.1-0.6); Monocytes Percent Auto 17.8 % (2.6-8.5); Neutrophils Absolute Auto 4.1 K/mm3 (1.3-6.7); Neutrophils Percent Auto 67.7 % (45.5-73.1); Platelet Count Result 107 k/mm3 (150-375); Red Blood Count 3.52 M/mm3 (4.6-6.20); Red Cell Distribution Width 20.3 % (11.5-14.5); White Blood Count 6.1 K/mm3 (4.5-10.0)
[2024-01-06 05:32] LABS: Alanine Aminotransferase 26 U/L (6-50); Alkaline Phosphatase 352 U/L (38-126); Anion Gap 4 mmol/L (4-12); Aspartate Amino Transferase 48 U/L (17-59); Bilirubin,Total 0.7 mg/dL (0.2-1.3); Blood Urea Nitrogen 8 mg/dL (9-20); Calcium 7.6 mg/dL (8.4-10.2); Carbon Dioxide 19 mmol/L (22-30); Chloride 106 mmol/L (98-107); Estimated CRCL calculation 112 ml/min; Estimated Glomerular Filt Rate > 60; Glucose 81 mg/dL (65-110); Magnesium 1.6 mg/dL (1.6-2.3); Potassium 3.7 mmol/L (3.4-5.0); Sodium 129 mmol/L (137-145)
[2024-01-06 05:44] LABS: Vancomycin Trough 13.3 ug/mL (10.0-20.0)
[2024-01-06 05:46] LABS: Platelet Estimate Slightly Decreased (Adequate)
[2024-01-06 05:48] LABS: Anisocytosis 2+; Schistocytes Rare
[2024-01-06] MEDS: VANCOMYCIN 1,500 MG/NS 500 ML 1,500 MG/500 ML BAG 250 MG IVPB ×2 (06:30→18:40)
[2024-01-06 08:14] LABS: Glucose Point of Care 80 mg/dl (65-105)
[2024-01-06] MEDS: IPRATROPIUM 0.5 MG/ALBUTEROL SULFATE 2.5 MG AMPUL.NEB 3 ML INHALATION ×3 (08:36→20:42)
[2024-01-06] MEDS: ACETAMINOPHEN 500 MG TABLET PO ×2 (09:17→18:01)
[2024-01-06] MEDS: FAMOTIDINE 20 MG TABLET PO (09:17)
[2024-01-06] MEDS: INSULIN GLARGINE (*BKC) 100 UNITS/ML 10 UNITS SUB-Q ×2 (09:17→18:18)
[2024-01-06] MEDS: FERROUS SULFATE 325 MG TABLET DR BY MOUTH (09:17)
[2024-01-06] MEDS: ISOSORBIDE MONONITRATE 30 MG TAB.ER.24H PO (09:18)
[2024-01-06] MEDS: MIRABEGRON 25 MG ER TABLET PO (09:18)
[2024-01-06] MEDS: SODIUM CHLORIDE 1 GM TABLET PO ×2 (09:18→17:21)
[2024-01-06] MEDS: SERTRALINE HCL 50 MG TABLET PO ×2 (09:18→17:21)
[2024-01-06] MEDS: MUPIROCIN 2% OINT 22 GM TUBE 1 APPLIC EACH NARE ×2 (09:18→20:50)
[2024-01-06] MEDS: PANTOPRAZOLE 40 MG TABLET PO (09:19)
[2024-01-06 11:06] LABS: IFOB Positive Control Positive; Immunochemical Fecal Occult Bl Negative (N)
--- NOTE | 2024-01-06 15:03 | PM.IMPN ---
Progress Note: A&P Assessment and Plan (1) Pneumonia: Code(s): J18.9 - Pneumonia, unspecified organism Status: Acute (2) Hypo-osmolality and hyponatremia: Code(s): E87.1 - Hypo-osmolality and hyponatremia Status: Acute (3) Generalized weakness: Code(s): R53.1 - Weakness Status: Acute (4) Chronic hyponatremia: Code(s): E87.1 - Hypo-osmolality and hyponatremia Status: Acute (5) Chronic systolic (congestive) heart failure: Code(s): I50.22 - Chronic systolic (congestive) heart failure Status: Acute (6) Insulin dependent diabetes mellitus: Status: Chronic (7) Sepsis: Code(s): A41.9 - Sepsis, unspecified organism Status: Acute Plan This is a 83-year-old man coming from [place] is due to generalized weakness shortness of breath past fever chills nausea vomiting reported. He was hypotensive on arrival to the ED. Oxygen status was adequate. Laboratory workup revealed a BC of 6.4 hemoglobin of 7.2 showing a [address] head showed no acute abnormality Chest x-ray showed a right lower lobe consolidation consistent with pneumonia so had elevated lactic acid Sepsis secondary to pneumonia receive IV fluid in the ER BNP elevated at 1190 Urinalysis negative for UTI. MRSA swab was positive influenza RSV and COVID was negative. Patient started vancomycin cefepime and levofloxacin For hyponatremia added on sodium tablets looks like chronic hyponatremia similar levels in the past Generalized weakness PT OT Acute on chronic anemia hemoglobin down to 7.2 coag test was negative. Will continue to monitor no signs of bleeding repeat was lowered to 6.8 and received 1 unit of packed red blood cell transfusion post transfusion hemoglobin is up to 9.4. Stool for occult blood test pending. Hold Plavix and Lovenox Thrombocytopenia mild chronic Elevated liver enzymes check ultrasound liver LD as elevated as well. Thrombocytopenia present. Hypoalbuminemic. Ferritin more than 2000 not indicative of iron deficiency could be acute phase reactant. Ultrasound liver ordered as noted above History of dysphagia on thickened liquid speech to follow History of congestive heart failure diastolic euvolemic on evaluation. Recent echo with EF 55-60% with hypokinesis of the apical lateral and mid anterior. 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 Anxiety depression on sertraline Coronary artery disease Hypertension DVT prophylaxis Lovenox Subjective Date/time seen: 01/06/24 15:03 Interval history: Feels bowels same. Discussed with his at bedside. He has been feeling weak for past few months Review of Systems Review of Systems: All systems reviewed & are unremarkable except as noted in HPI and below Exam Narrative: GENERAL APPEARANCE: WELL-DEVELOPED, WELL-NOURISHED SKIN:? PALE, no rash HEAD: NORMOCEPHALIC, NONTRAUMATIC EYES: CLEAR CONJUNCTIVA ENT: OROPHARYNX NORMAL, EARS NORMAL, NOSE NORMAL NECK: SUPPLE, NONTENDER CHEST AND RESPIRATORY: AIRWAY PATENT, NO RESPIRATORY DISTRESS, NO ACCESSORY MUSCLE USE HEART: REGULAR RATE/RHYTHM ABDOMEN: SOFT, NONTENDER, NO ORGANOMEGALY VASCULAR: NORMAL PERIPHERAL PULSES, NORMAL CAPILLARY REFILL. 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 Objective Data Vital Signs Vital Signs: Vital Signs - 24 hr 01/05/24 16:00 01/05/24 16:23 01/05/24 16:00 Temperature 97.8 F 98.9 F Pulse Rate 96 95 Respiratory Rate 18 18 Blood Pressure 115/54 L 108/58 L Pulse Oximetry 96 96 95 Oxygen Delivery Room Air 01/05/24 16:38 01/05/24 16:00 01/05/24 17:38 Temperature 98.9 F 99.2 F Pulse Rate 92 95 97 Respiratory Rate 22 H 19 Blood Pressure 115/61 119/68 Pulse Oximetry 94 95 Oxygen Delivery 01/05/24 18:00 01/05/24 18:30 01/05/24 19:45 Temperature 99.1 F
[2024-01-06 16:17] LABS: Glucose Point of Care 158 mg/dl (65-105)
[2024-01-06] MEDS: levoFLOXacin 750 MG/D5W 150 ML 750 MG/150 ML BAG 100 MG IVPB (18:04)
[2024-01-06 20:24] LABS: Glucose Point of Care 191 mg/dl (65-105)
[2024-01-06] MEDS: TAMSULOSIN HCL 0.4 MG CAPSULE PO (20:46)
[2024-01-06] MEDS: SIMVASTATIN 20 MG TABLET 40 MG PO (20:46)
[2024-01-06] MEDS: DUTASTERIDE 0.5 MG CAPSULE PO (20:47)
[2024-01-07] VITALS (21 sets, daily range): BP systolic 103–125; BP diastolic 58–71; PULSE 83–102; RESP 18–28; TEMP 36.5–36.7; O2SAT 92–100; BMI 22.9; BMI 10.0
[2024-01-07 04:03] LABS: Basophils Percent Auto 0.5 % (0.2-1.2); Eosinophils Absolute Auto 0.1 K/mm3 (0-0.3); Hematocrit 29.4 % (42.0-52.0); Hemoglobin 9.1 g/dL (14.0-18.0); Immature Granulocyte Absolute 0.05 K/mm3 (0.00-0.031); Immature Granulocyte Percent A 0.9 % (0-0.5); Lymphocytes Absolute Auto 0.77 K/mm3 (0.9-3.2); Lymphocytes Percent Auto 13.3 % (18.3-44.2); Mean Corpuscular Hemoglobin 26.2 pg (26-34); Mean Corpuscular Volume 84.7 fl (80-100); Mean Platelet Volume 10.2 fl (7.4-10.4); Monocytes Percent Auto 16.6 % (2.6-8.5); Neutrophils Absolute Auto 3.9 K/mm3 (1.3-6.7); Neutrophils Percent Auto 67.7 % (45.5-73.1); Platelet Count Result 104 k/mm3 (150-375); Red Blood Count 3.47 M/mm3 (4.6-6.20); Red Cell Distribution Width 20.2 % (11.5-14.5); White Blood Count 5.8 K/mm3 (4.5-10.0)
[2024-01-07 04:16] LABS: Alanine Aminotransferase 39 U/L (6-50); Albumin Level 1.9 g/dL (3.5-5.1); Alkaline Phosphatase 494 U/L (38-126); Anion Gap 2 mmol/L (4-12); Aspartate Amino Transferase 109 U/L (17-59); Bilirubin,Total 0.7 mg/dL (0.2-1.3); Blood Urea Nitrogen 10 mg/dL (9-20); Calcium 7.3 mg/dL (8.4-10.2); Carbon Dioxide 21 mmol/L (22-30); Chloride 102 mmol/L (98-107); Estimated CRCL calculation 97 ml/min; Estimated Glomerular Filt Rate > 60; Glucose 155 mg/dL (65-110); Magnesium 1.7 mg/dL (1.6-2.3); Potassium 3.9 mmol/L (3.4-5.0); Sodium 125 mmol/L (137-145)
[2024-01-07 04:31] LABS: Anisocytosis 2+; Large Platelets Present; Microcytosis 2+ (NORMAL); Platelet Clumps Present; Platelet Estimate Slightly Decreased (Adequate); Schistocytes Rare
[2024-01-07] MEDS: VANCOMYCIN 1,500 MG/NS 500 ML 1,500 MG/500 ML BAG 250 MG IVPB (06:06)
[2024-01-07 07:32] LABS: Glucose Point of Care 107 mg/dl (65-105)
[2024-01-07] MEDS: FAMOTIDINE 20 MG TABLET PO (08:10)
[2024-01-07] MEDS: ACETAMINOPHEN 500 MG TABLET PO ×2 (08:10→17:34)
[2024-01-07] MEDS: SERTRALINE HCL 50 MG TABLET PO ×2 (08:10→17:35)
[2024-01-07] MEDS: MIRABEGRON 25 MG ER TABLET PO (08:10)
[2024-01-07] MEDS: PANTOPRAZOLE 40 MG TABLET PO (08:10)
[2024-01-07] MEDS: SODIUM CHLORIDE 1 GM TABLET PO ×2 (08:10→17:35)
[2024-01-07] MEDS: FERROUS SULFATE 325 MG TABLET DR BY MOUTH (08:10)
[2024-01-07] MEDS: ISOSORBIDE MONONITRATE 30 MG TAB.ER.24H PO (08:11)
[2024-01-07] MEDS: IPRATROPIUM 0.5 MG/ALBUTEROL SULFATE 2.5 MG AMPUL.NEB 3 ML INHALATION ×3 (08:17→22:06)
[2024-01-07] MEDS: INSULIN GLARGINE (*BKC) 100 UNITS/ML 10 UNITS SUB-Q ×2 (08:22→17:35)
[2024-01-07] MEDS: MUPIROCIN 2% OINT 22 GM TUBE 1 APPLIC EACH NARE ×2 (09:56→23:26)
[2024-01-07] MEDS: CEFEPIME 2 GM/NS 50 ML 2 GM/50 ML BAG IVPB (09:56)
[2024-01-07 11:34] LABS: Glucose Point of Care 190 mg/dl (65-105)
--- NOTE | 2024-01-07 14:18 | PM.IMPN ---
Progress Note: A&P Assessment and Plan (1) Pneumonia: Code(s): J18.9 - Pneumonia, unspecified organism Status: Acute (2) Hypo-osmolality and hyponatremia: Code(s): E87.1 - Hypo-osmolality and hyponatremia Status: Acute (3) Generalized weakness: Code(s): R53.1 - Weakness Status: Acute (4) Chronic hyponatremia: Code(s): E87.1 - Hypo-osmolality and hyponatremia Status: Acute (5) Chronic systolic (congestive) heart failure: Code(s): I50.22 - Chronic systolic (congestive) heart failure Status: Acute (6) Insulin dependent diabetes mellitus: Status: Chronic (7) Sepsis: Code(s): A41.9 - Sepsis, unspecified organism Status: Acute Plan This is a 83-year-old man coming from [place] is due to generalized weakness shortness of breath past fever chills nausea vomiting reported. He was hypotensive on arrival to the ED. Oxygen status was adequate. Laboratory workup revealed a BC of 6.4 hemoglobin of 7.2 showing a [address] head showed no acute abnormality Chest x-ray showed a right lower lobe consolidation consistent with pneumonia so had elevated lactic acid Sepsis secondary to pneumonia receive IV fluid in the ER BNP elevated at 1190 Urinalysis negative for UTI. MRSA swab was positive influenza RSV and COVID was negative. Patient started vancomycin cefepime and levofloxacin For hyponatremia added on sodium tablets looks like chronic hyponatremia similar levels in the past cortisol level Generalized weakness PT OT Acute on chronic anemia hemoglobin down to 7.2 guaiac test was negative. Will continue to monitor no signs of bleeding repeat was lowered to 6.8 and received 1 unit of packed red blood cell transfusion post transfusion hemoglobin is up to 9.4. Stool for occult blood test negative. Hold Plavix and Lovenox. h and h monitor. slightly down today post transfusion. Thrombocytopenia mild chronic Elevated liver enzymes: LDH as elevated as well. Thrombocytopenia present. Hypoalbuminemic. Ferritin more than 2000 not indicative of iron deficiency could be acute phase reactant. Ultrasound liver negative. History of dysphagia on thickened liquid speech to follow History of congestive heart failure diastolic euvolemic on evaluation. Recent echo with EF 55-60% with hypokinesis of the apical lateral and mid anterior. 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 Anxiety depression on sertraline Coronary artery disease Hypertension DVT prophylaxis Lovenox Subjective Date/time seen: 01/07/24 14:18 Interval history: no overnight events. feelig better. no cough. no sob. has not been up with therapy yet. Review of Systems Review of Systems: All systems reviewed & are unremarkable except as noted in HPI and below Exam Narrative: GENERAL APPEARANCE: WELL-DEVELOPED, WELL-NOURISHED SKIN:? PALE, no rash HEAD: NORMOCEPHALIC, NONTRAUMATIC EYES: CLEAR CONJUNCTIVA ENT: OROPHARYNX NORMAL, EARS NORMAL, NOSE NORMAL NECK: SUPPLE, NONTENDER CHEST AND RESPIRATORY: AIRWAY PATENT, NO RESPIRATORY DISTRESS, NO ACCESSORY MUSCLE USE HEART: REGULAR RATE/RHYTHM ABDOMEN: SOFT, NONTENDER, NO ORGANOMEGALY VASCULAR: NORMAL PERIPHERAL PULSES, NORMAL CAPILLARY REFILL. 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 Objective Data Vital Signs Vital Signs: Vital Signs - 24 hr 01/06/24 16:00 01/06/24 16:00 01/06/24 16:06 Temperature 97.4 F L Pulse Rate 92 96 Respiratory Rate 18 Blood Pressure 115/71 Pulse Oximetry 100 Oxygen Delivery Room Air 01/06/24 18:00 01/06/24 20:00 01/06/24 20:00 Temperature Pulse Rate 99 99 98 Respiratory Rate 18 Blood Pressure Pulse Oximetry 100 Oxygen Delivery Room Air 01/06/24 20:27 01/06/24 20:42 01/06/24 20:42 Temperature 97.6 F Pulse Rate
[2024-01-07 17:02] LABS: Glucose Point of Care 142 mg/dl (65-105)
[2024-01-07] MEDS: DOXYCYCLINE HYCLATE 100 MG TABLET PO (18:03)
[2024-01-07] MEDS: AMOXICILLIN/CLAVULANATE K 875-125 MG TAB 1 TABLET PO (18:03)
[2024-01-07] MEDS: TAMSULOSIN HCL 0.4 MG CAPSULE PO (21:56)
[2024-01-07] MEDS: SIMVASTATIN 20 MG TABLET 40 MG PO (21:56)
[2024-01-07] MEDS: DUTASTERIDE 0.5 MG CAPSULE PO (21:57)
--- NOTE | 2024-01-07 23:14 | PC.NURSE ---
Pt transferred from ICU-5 to 2nd Medical Room 256 at 2301.
[2024-01-07 23:28] LABS: Glucose Point of Care 161 mg/dl (65-105)
[2024-01-08] VITALS (17 sets, daily range): BP systolic 86–118; BP diastolic 52–62; PULSE 87–106; RESP 16–20; TEMP 36.3–37.1; O2SAT 93–97
--- NOTE | 2024-01-08 01:23 | PC.NURSE ---
This patient, Farhan Villalta, was transferred to [facility] on 01/08/24 at 2300. Personal belongings sent with patient. Report given to Rachel APARICIO. Appropriate documentation sent with patient.
[2024-01-08 05:38] LABS: Basophils Percent Auto 0.5 % (0.2-1.2); Eosinophils Absolute Auto 0.1 K/mm3 (0-0.3); Eosinophils Percent Auto 1.4 % (0-4.4); Hematocrit 31.5 % (42.0-52.0); Hemoglobin 9.6 g/dL (14.0-18.0); Immature Granulocyte Absolute 0.05 K/mm3 (0.00-0.031); Immature Granulocyte Percent A 0.8 % (0-0.5); Immature Platelet Fraction Pct 6.5 % (0.9-11.2); Lymphocytes Absolute Auto 0.77 K/mm3 (0.9-3.2); Lymphocytes Percent Auto 12.1 % (18.3-44.2); Mean Corpuscular HGB Conc 30.5 g/dl (32-36); Mean Corpuscular Hemoglobin 26.3 pg (26-34); Mean Corpuscular Volume 86.3 fl (80-100); Monocytes Absolute Auto 1.2 K/mm3 (0.1-0.6); Monocytes Percent Auto 18.4 % (2.6-8.5); Neutrophils Absolute Auto 4.3 K/mm3 (1.3-6.7); Neutrophils Percent Auto 66.8 % (45.5-73.1); Platelet Count Result 107 k/mm3 (150-375); Red Blood Count 3.65 M/mm3 (4.6-6.20); Red Cell Distribution Width 20.1 % (11.5-14.5); White Blood Count 6.4 K/mm3 (4.5-10.0)
[2024-01-08 06:21] LABS: Alanine Aminotransferase 40 U/L (6-50); Alkaline Phosphatase 477 U/L (38-126); Anion Gap 4 mmol/L (4-12); Aspartate Amino Transferase 76 U/L (17-59); Bilirubin,Total 0.7 mg/dL (0.2-1.3); Blood Urea Nitrogen 10 mg/dL (9-20); Calcium 7.5 mg/dL (8.4-10.2); Carbon Dioxide 21 mmol/L (22-30); Chloride 101 mmol/L (98-107); Estimated CRCL calculation 118 ml/min; Estimated Glomerular Filt Rate > 60; Glucose 110 mg/dL (65-110); Magnesium 1.8 mg/dL (1.6-2.3); Potassium 3.8 mmol/L (3.4-5.0); Sodium 126 mmol/L (137-145)
[2024-01-08 06:27] LABS: Platelet Estimate Decreased (Adequate)
[2024-01-08 06:28] LABS: Anisocytosis 1+; Hypochromasia 1+; Microcytosis 1+ (NORMAL); Schistocytes None Seen
[2024-01-08 08:32] LABS: Glucose Point of Care 116 mg/dl (65-105)
[2024-01-08] MEDS: IPRATROPIUM 0.5 MG/ALBUTEROL SULFATE 2.5 MG AMPUL.NEB 3 ML INHALATION ×2 (08:59→20:58)
[2024-01-08] MEDS: FAMOTIDINE 20 MG TABLET PO (09:06)
[2024-01-08] MEDS: ISOSORBIDE MONONITRATE 30 MG TAB.ER.24H PO (09:06)
[2024-01-08] MEDS: DOXYCYCLINE HYCLATE 100 MG TABLET PO ×2 (09:06→21:11)
[2024-01-08] MEDS: PANTOPRAZOLE 40 MG TABLET PO (09:06)
[2024-01-08] MEDS: INSULIN GLARGINE (*BKC) 100 UNITS/ML 10 UNITS SUB-Q ×2 (09:07→18:33)
[2024-01-08] MEDS: MIRABEGRON 25 MG ER TABLET PO (09:07)
[2024-01-08] MEDS: FERROUS SULFATE 325 MG TABLET DR BY MOUTH (09:07)
[2024-01-08] MEDS: SERTRALINE HCL 50 MG TABLET PO ×2 (09:07→18:20)
[2024-01-08] MEDS: AMOXICILLIN/CLAVULANATE K 875-125 MG TAB 1 TABLET PO ×2 (09:07→21:11)
[2024-01-08] MEDS: SODIUM CHLORIDE 1 GM TABLET PO ×2 (09:07→18:20)
[2024-01-08] MEDS: ACETAMINOPHEN 500 MG TABLET PO ×2 (09:07→18:20)
[2024-01-08] MEDS: MUPIROCIN 2% OINT 22 GM TUBE 1 APPLIC EACH NARE ×2 (09:15→21:12)
[2024-01-08] MEDS: ACETAMINOPHEN 325 MG TABLET 650 MG PO (11:41)
[2024-01-08 12:32] LABS: Glucose Point of Care 269 mg/dl (65-105)
[2024-01-08] MEDS: INSULIN ASPART (*BKC) 100 UNITS/ML SUB-Q (13:02)
--- NOTE | 2024-01-08 14:09 | PM.IMPN ---
Progress Note: A&P Assessment and Plan (1) Pneumonia: Code(s): J18.9 - Pneumonia, unspecified organism Status: Acute (2) Hypo-osmolality and hyponatremia: Code(s): E87.1 - Hypo-osmolality and hyponatremia Status: Acute (3) Generalized weakness: Code(s): R53.1 - Weakness Status: Acute (4) Chronic hyponatremia: Code(s): E87.1 - Hypo-osmolality and hyponatremia Status: Acute (5) Chronic systolic (congestive) heart failure: Code(s): I50.22 - Chronic systolic (congestive) heart failure Status: Acute (6) Insulin dependent diabetes mellitus: Status: Chronic (7) Sepsis: Code(s): A41.9 - Sepsis, unspecified organism Status: Acute Plan This is a 83-year-old man coming from [place] is due to generalized weakness shortness of breath fever chills nausea vomiting reported. He was hypotensive on arrival to the ED. Oxygen status was adequate. Laboratory workup revealed a WBC of 6.4 hemoglobin of 7.2 platelet [address] head showed no acute abnormality Chest x-ray showed a right lower lobe consolidation consistent with pneumonia and also had elevated lactic acid Sepsis secondary to pneumonia receive IV fluid in the ER BNP elevated at 1190 Urinalysis negative for UTI. MRSA swab was positive influenza RSV and COVID was negative. Patient started vancomycin cefepime and levofloxacin. This has been switched to oral antibiotics with doxycycline and Augmentin. For hyponatremia added on sodium tablets looks like chronic hyponatremia similar levels in the past. Unclear etiology for hyponatremia. TSH came back normal and cortisol level was adequate. Had fluid restriction with sodium tablets and had a diuresis with Lasix. Monitor sodium level Generalized weakness PT OT this has been more recent development over the past few months. No specific etiology identified. He is hypoalbuminemic. Will check SPEP UPEP urinalysis does not show any proteinuria. Acute on chronic anemia hemoglobin down to 7.2 guaiac test was negative. Will continue to monitor no signs of bleeding repeat was lowered to 6.8 and received 1 unit of packed red blood cell transfusion post transfusion hemoglobin is up to 9.4. Stool for occult blood test negative. Hold Plavix and Lovenox. h and h monitor. And remains stable. 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 Alkaline phosphate is elevated however ultrasound of the liver was unremarkable and with his generalized weakness could be coming from bone. Will get CT chest abdomen pelvis to further evaluate. Thrombocytopenia mild chronic. B12 level is low normal will check methylmalonic acid level cannot entirely rule out B12 deficiency will start on empiric B12 supplementation. This could also explain the thrombocytopenia. Underlying bone marrow disorder needs to be ruled out if everything is coming back negative. Will have Hematology see him for anemia and thrombocytopenia while inpatient. Elevated liver enzymes: LDH as elevated as well. Thrombocytopenia present. Hypoalbuminemic. Ferritin more than 2000 not indicative of iron deficiency could be acute phase reactant. Ultrasound liver negative. Had IV albumin therapy to help with edema as well as hypoalbuminemia History of dysphagia on thickened liquid speech to follow and cleared for regular diet which has been started History of congestive heart failure diastolic euvolemic on evaluation. Recent echo with EF 55-60% with hypokinesis of the apical lateral and mid anterior. Grade 1 diastolic dysfunction. Start diuresis as he is eating edematous now. Start 40 mg IV daily Type 2 diabetes insulin dependent on Lantus 10 units t.i.d. Anxiety depression on
--- NOTE | 2024-01-08 14:50 | PCOTNOTE ---
Attempted to see Patient at this time. Patient declined any activity, stating he has had a horrible day, in to much pain, Patient asked therapy to come back in the morning .
[2024-01-08] MEDS: ALBUMIN HUMAN 25% 25 GM/100 ML 100 ML IVPB ×2 (15:25→21:11)
[2024-01-08] MEDS: CYANOCOBALAMIN INJ 1,000 MCG/ML VIAL 1000 MCG IM (15:26)
--- NOTE | 2024-01-08 16:27 | PCRCNOTE ---
Window of time for administration has passed. See next scheduled administration.
[2024-01-08 18:26] LABS: Glucose Point of Care 148 mg/dl (65-105)
[2024-01-08 19:24] LABS: Total Protein Urine Random 23 mg/dL
[2024-01-08 19:26] LABS: Creatinine Urine 91.5 mg/dL
[2024-01-08] MEDS: TAMSULOSIN HCL 0.4 MG CAPSULE PO (21:11)
[2024-01-08] MEDS: SIMVASTATIN 20 MG TABLET 40 MG PO (21:11)
[2024-01-08] MEDS: DUTASTERIDE 0.5 MG CAPSULE PO (21:11)
[2024-01-08 21:37] LABS: Glucose Point of Care 191 mg/dl (65-105)
[2024-01-09] VITALS (18 sets, daily range): BP systolic 118–140; BP diastolic 61–67; PULSE 73–96; RESP 14–20; TEMP 36.4–36.8; O2SAT 94–96
[2024-01-09] MEDS: ALBUMIN HUMAN 25% 25 GM/100 ML 100 ML IVPB ×4 (02:09→21:33)
[2024-01-09] MEDS: IPRATROPIUM 0.5 MG/ALBUTEROL SULFATE 2.5 MG AMPUL.NEB 3 ML INHALATION ×4 (02:36→20:45)
[2024-01-09 08:02] LABS: Glucose Point of Care 89 mg/dl (65-105)
--- NOTE | 2024-01-09 09:26 | PCOTNOTE ---
The patient treatment was not able to be completed patient working with PT. Will plan to continue treatment per plan of care.
[2024-01-09] MEDS: FOLIC ACID 0.4 MG TABLET PO (09:53)
[2024-01-09] MEDS: AMOXICILLIN/CLAVULANATE K 875-125 MG TAB 1 TABLET PO ×2 (09:53→21:29)
[2024-01-09] MEDS: CLOPIDOGREL BISULFATE 75 MG TABLET PO (09:53)
[2024-01-09] MEDS: ACETAMINOPHEN 500 MG TABLET PO ×2 (09:53→17:24)
[2024-01-09] MEDS: DOXYCYCLINE HYCLATE 100 MG TABLET PO ×2 (09:53→21:29)
[2024-01-09] MEDS: FAMOTIDINE 20 MG TABLET PO (09:53)
[2024-01-09] MEDS: SERTRALINE HCL 50 MG TABLET PO ×2 (09:53→17:24)
[2024-01-09] MEDS: ISOSORBIDE MONONITRATE 30 MG TAB.ER.24H PO (09:53)
[2024-01-09] MEDS: FERROUS SULFATE 325 MG TABLET DR BY MOUTH (09:53)
[2024-01-09] MEDS: PANTOPRAZOLE 40 MG TABLET PO (09:54)
[2024-01-09] MEDS: SODIUM CHLORIDE 1 GM TABLET PO (09:54)
[2024-01-09] MEDS: MIRABEGRON 25 MG ER TABLET PO (09:54)
[2024-01-09] MEDS: MUPIROCIN 2% OINT 22 GM TUBE 1 APPLIC EACH NARE ×2 (09:54→21:29)
[2024-01-09] MEDS: INSULIN GLARGINE (*BKC) 100 UNITS/ML 10 UNITS SUB-Q ×2 (09:56→17:26)
--- NOTE | 2024-01-09 11:11 | PM.IMPN ---
Progress Note: A&P Assessment and Plan (1) Pneumonia: Code(s): J18.9 - Pneumonia, unspecified organism Status: Acute (2) Hypo-osmolality and hyponatremia: Code(s): E87.1 - Hypo-osmolality and hyponatremia Status: Acute (3) Generalized weakness: Code(s): R53.1 - Weakness Status: Acute (4) Chronic hyponatremia: Code(s): E87.1 - Hypo-osmolality and hyponatremia Status: Acute (5) Chronic systolic (congestive) heart failure: Code(s): I50.22 - Chronic systolic (congestive) heart failure Status: Acute (6) Insulin dependent diabetes mellitus: Status: Chronic (7) Sepsis: Code(s): A41.9 - Sepsis, unspecified organism Status: Acute Plan This is a 83-year-old man coming from [place] is due to generalized weakness shortness of breath fever chills nausea vomiting reported. severe sepsis, community-acquired pneumonia, He was hypotensive on arrival to the ED. Oxygen status was adequate. Laboratory workup revealed a WBC of 6.4 hemoglobin of 7.2 platelet [address] head showed no acute abnormality Chest x-ray showed a right lower lobe consolidation consistent with pneumonia and also had elevated lactic acid Sepsis secondary to pneumonia receive IV fluid in the ER BNP elevated at 1190 Urinalysis negative for UTI. MRSA swab was positive influenza RSV and COVID was negative. Patient started vancomycin cefepime and levofloxacin. switched to oral antibiotics with doxycycline and Augmentin. For hyponatremia added on sodium tablets looks like chronic hyponatremia similar levels in the past. Unclear etiology for hyponatremia. TSH came back normal and cortisol level was adequate. Had fluid restriction with sodium tablets and had a diuresis with Lasix. Monitor sodium level Generalized weakness PT OT this has been more recent development over the past few months. No specific etiology identified. He is hypoalbuminemic. Will check SPEP UPEP urinalysis does not show any proteinuria. Acute on chronic anemia hemoglobin down to 7.2 guaiac test was negative. Will continue to monitor no signs of bleeding repeat was lowered to 6.8 and received 1 unit of packed red blood cell transfusion post transfusion hemoglobin is up to 9.4. Stool for occult blood test negative. Hold Plavix and Lovenox. h and h monitor. And remains stable. 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 Alkaline phosphate is elevated however ultrasound of the liver was unremarkable and with his generalized weakness could be coming from bone. Will get CT chest abdomen pelvis to further evaluate. Thrombocytopenia mild chronic. B12 level is low normal will check methylmalonic acid level cannot entirely rule out B12 deficiency will start on empiric B12 supplementation. This could also explain the thrombocytopenia. Underlying bone marrow disorder needs to be ruled out if everything is coming back negative. Will have Hematology see him for anemia and thrombocytopenia while inpatient. Elevated liver enzymes: LDH as elevated as well. Thrombocytopenia present. Hypoalbuminemic. Ferritin more than 2000 not indicative of iron deficiency could be acute phase reactant. Ultrasound liver negative. Had IV albumin therapy to help with edema as well as hypoalbuminemia History of dysphagia on thickened liquid speech to follow and cleared for regular diet which has been started History of congestive heart failure diastolic euvolemic on evaluation. Recent echo with EF 55-60% with hypokinesis of the apical lateral and mid anterior. Grade 1 diastolic dysfunction. received IV Lasix, Type 2 diabetes insulin dependent on Lantus 10 units t.i.d. Anxiety depression on sert
[2024-01-09 12:06] LABS: Glucose Point of Care 252 mg/dl (65-105)
[2024-01-09] MEDS: INSULIN ASPART (*BKC) 100 UNITS/ML SUB-Q (12:34)
[2024-01-09 17:20] LABS: Glucose Point of Care 138 mg/dl (65-105)
[2024-01-09] MEDS: SODIUM CHLORIDE 1 GM TABLET 2 GM PO (17:23)
[2024-01-09] MEDS: DUTASTERIDE 0.5 MG CAPSULE PO (21:29)
[2024-01-09] MEDS: SIMVASTATIN 20 MG TABLET 40 MG PO (21:29)
[2024-01-09] MEDS: TAMSULOSIN HCL 0.4 MG CAPSULE PO (21:29)
[2024-01-09 21:43] LABS: Glucose Point of Care 81 mg/dl (65-105)
[2024-01-10] VITALS (15 sets, daily range): BP systolic 118–130; BP diastolic 46–64; PULSE 81–102; RESP 14–18; TEMP 36.6–37.2; O2SAT 91–100
[2024-01-10] MEDS: ALBUMIN HUMAN 25% 25 GM/100 ML 100 ML IVPB ×4 (02:22→20:08)
[2024-01-10] MEDS: IPRATROPIUM 0.5 MG/ALBUTEROL SULFATE 2.5 MG AMPUL.NEB 3 ML INHALATION ×3 (08:12→20:14)
--- NOTE | 2024-01-10 08:51 | PM.IMPN ---
Progress Note: A&P Assessment and Plan (1) Pneumonia: Code(s): J18.9 - Pneumonia, unspecified organism Status: Acute (2) Hypo-osmolality and hyponatremia: Code(s): E87.1 - Hypo-osmolality and hyponatremia Status: Acute (3) Generalized weakness: Code(s): R53.1 - Weakness Status: Acute (4) Chronic hyponatremia: Code(s): E87.1 - Hypo-osmolality and hyponatremia Status: Acute (5) Chronic systolic (congestive) heart failure: Code(s): I50.22 - Chronic systolic (congestive) heart failure Status: Acute (6) Insulin dependent diabetes mellitus: Status: Chronic (7) Sepsis: Code(s): A41.9 - Sepsis, unspecified organism Status: Acute Plan This is a 83-year-old man coming from [place] is due to generalized weakness shortness of breath fever chills nausea vomiting reported. severe sepsis, community-acquired pneumonia, He was hypotensive on arrival to the ED. Oxygen status was adequate. Laboratory workup revealed a WBC of 6.4 hemoglobin of 7.2 platelet [address] head showed no acute abnormality Chest x-ray showed a right lower lobe consolidation consistent with pneumonia and also had elevated lactic acid Sepsis secondary to pneumonia receive IV fluid in the ER BNP elevated at 1190 Urinalysis negative for UTI. MRSA swab was positive influenza RSV and COVID was negative. Patient started vancomycin cefepime and levofloxacin. switched to oral antibiotics with doxycycline and Augmentin. For hyponatremia added on sodium tablets looks like chronic hyponatremia similar levels in the past. Unclear etiology for hyponatremia. TSH came back normal and cortisol level was adequate. Had fluid restriction with sodium tablets and had a diuresis with Lasix. Monitor sodium level sodium is trending up. 131 5/ c/w current management Generalized weakness PT OT this has been more recent development over the past few months. No specific etiology identified. He is hypoalbuminemic. SPEP UPEP urinalysis does not show any proteinuria. Acute on chronic anemia hemoglobin down to 7.2 guaiac test was negative. Will continue to monitor no signs of bleeding repeat was lowered to 6.8 and received 1 unit of packed red blood cell transfusion post transfusion hemoglobin is up to 9.4. Stool for occult blood test negative. Hold Plavix and Lovenox. h and h monitor. And remains stable. 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 Alkaline phosphate is elevated however ultrasound of the liver was unremarkable and with his generalized weakness could be coming from bone. Will get CT chest abdomen pelvis to further evaluate. Thrombocytopenia mild chronic. B12 level is low normal will check methylmalonic acid level cannot entirely rule out B12 deficiency will start on empiric B12 supplementation. This could also explain the thrombocytopenia. Underlying bone marrow disorder needs to be ruled out if everything is coming back negative. Will have Hematology see him for anemia and thrombocytopenia while inpatient. Elevated liver enzymes: LDH as elevated as well. Thrombocytopenia present. Hypoalbuminemic. Ferritin more than 2000 not indicative of iron deficiency could be acute phase reactant. Ultrasound liver negative. Had IV albumin therapy to help with edema as well as hypoalbuminemia History of dysphagia on thickened liquid speech to follow and cleared for regular diet which has been started History of congestive heart failure diastolic euvolemic on evaluation. Recent echo with EF 55-60% with hypokinesis of the apical lateral and mid anterior. Grade 1 diastolic dysfunction. received IV Lasix, Type 2 diabetes insulin dependent on La
[2024-01-10 08:52] LABS: Glucose Point of Care 88 mg/dl (65-105)
[2024-01-10] MEDS: FERROUS SULFATE 325 MG TABLET DR BY MOUTH (09:27)
[2024-01-10] MEDS: SODIUM CHLORIDE 1 GM TABLET 2 GM PO ×2 (09:27→17:18)
[2024-01-10] MEDS: FOLIC ACID 0.4 MG TABLET PO (09:27)
[2024-01-10] MEDS: PANTOPRAZOLE 40 MG TABLET PO (09:27)
[2024-01-10] MEDS: SERTRALINE HCL 50 MG TABLET PO ×2 (09:27→17:18)
[2024-01-10] MEDS: FAMOTIDINE 20 MG TABLET PO (09:27)
[2024-01-10] MEDS: DOXYCYCLINE HYCLATE 100 MG TABLET PO ×2 (09:27→20:07)
[2024-01-10] MEDS: ISOSORBIDE MONONITRATE 30 MG TAB.ER.24H PO (09:27)
[2024-01-10] MEDS: AMOXICILLIN/CLAVULANATE K 875-125 MG TAB 1 TABLET PO ×2 (09:27→20:07)
[2024-01-10] MEDS: CLOPIDOGREL BISULFATE 75 MG TABLET PO (09:27)
[2024-01-10] MEDS: MIRABEGRON 25 MG ER TABLET PO (09:27)
[2024-01-10] MEDS: ACETAMINOPHEN 500 MG TABLET PO ×2 (09:27→17:18)
[2024-01-10] MEDS: INSULIN GLARGINE (*BKC) 100 UNITS/ML 10 UNITS SUB-Q ×2 (09:28→17:18)
[2024-01-10] MEDS: MUPIROCIN 2% OINT 22 GM TUBE 1 APPLIC EACH NARE ×2 (09:28→20:08)
[2024-01-10 09:38] LABS: Basophils Percent Auto 0.3 % (0.2-1.2); Eosinophils Absolute Auto 0.1 K/mm3 (0-0.3); Eosinophils Percent Auto 1.3 % (0-4.4); Hematocrit 28.4 % (42.0-52.0); Hemoglobin 8.7 g/dL (14.0-18.0); Immature Granulocyte Absolute 0.06 K/mm3 (0.00-0.031); Immature Granulocyte Percent A 0.9 % (0-0.5); Immature Platelet Fraction Pct 6.6 % (0.9-11.2); Lymphocytes Percent Auto 12.5 % (18.3-44.2); Mean Corpuscular HGB Conc 30.6 g/dl (32-36); Mean Corpuscular Hemoglobin 26.6 pg (26-34); Mean Corpuscular Volume 86.9 fl (80-100); Mean Platelet Volume 10.5 fl (7.4-10.4); Monocytes Percent Auto 15.3 % (2.6-8.5); Neutrophils Absolute Auto 4.5 K/mm3 (1.3-6.7); Neutrophils Percent Auto 69.7 % (45.5-73.1); Platelet Count Result 97 k/mm3 (150-375); Red Blood Count 3.27 M/mm3 (4.6-6.20); Red Cell Distribution Width 20.4 % (11.5-14.5); White Blood Count 6.4 K/mm3 (4.5-10.0)
[2024-01-10 09:41] LABS: Anion Gap 7 mmol/L (4-12); Blood Urea Nitrogen 9 mg/dL (9-20); Calcium 8.3 mg/dL (8.4-10.2); Carbon Dioxide 26 mmol/L (22-30); Chloride 98 mmol/L (98-107); Estimated CRCL calculation 119 ml/min; Estimated Glomerular Filt Rate > 60; Glucose 80 mg/dL (65-110); Potassium 3.9 mmol/L (3.4-5.0); Sodium 131 mmol/L (137-145)
--- NOTE | 2024-01-10 11:50 | PCOTNOTE ---
Attempted to see Patient at this time. Patient refused, seems upset, stated I'm tired, leave me alone .
[2024-01-10 12:26] LABS: Glucose Point of Care 130 mg/dl (65-105)
[2024-01-10 17:08] LABS: Glucose Point of Care 170 mg/dl (65-105)
[2024-01-10] MEDS: DUTASTERIDE 0.5 MG CAPSULE PO (20:07)
[2024-01-10] MEDS: TAMSULOSIN HCL 0.4 MG CAPSULE PO (20:07)
[2024-01-10] MEDS: SIMVASTATIN 20 MG TABLET 40 MG PO (20:07)
[2024-01-10 20:58] LABS: Glucose Point of Care 227 mg/dl (65-105)
[2024-01-11] VITALS (18 sets, daily range): BP systolic 128–133; BP diastolic 58–64; PULSE 78–97; RESP 14–19; TEMP 36.5–36.7; O2SAT 93–99
[2024-01-11] MEDS: ALBUMIN HUMAN 25% 25 GM/100 ML 100 ML IVPB ×4 (02:16→20:51)
[2024-01-11] MEDS: IPRATROPIUM 0.5 MG/ALBUTEROL SULFATE 2.5 MG AMPUL.NEB 3 ML INHALATION ×4 (03:04→21:02)
[2024-01-11 08:15] LABS: Basophils Percent Auto 0.5 % (0.2-1.2); Eosinophils Absolute Auto 0.1 K/mm3 (0-0.3); Eosinophils Percent Auto 1.4 % (0-4.4); Immature Granulocyte Absolute 0.05 K/mm3 (0.00-0.031); Immature Granulocyte Percent A 0.9 % (0-0.5); Immature Platelet Fraction Pct 6.8 % (0.9-11.2); Lymphocytes Absolute Auto 0.72 K/mm3 (0.9-3.2); Lymphocytes Percent Auto 12.7 % (18.3-44.2); Mean Corpuscular HGB Conc 30.8 g/dl (32-36); Mean Corpuscular Hemoglobin 26.8 pg (26-34); Mean Platelet Volume 10.6 fl (7.4-10.4); Monocytes Absolute Auto 0.9 K/mm3 (0.1-0.6); Monocytes Percent Auto 16.3 % (2.6-8.5); Neutrophils Absolute Auto 3.9 K/mm3 (1.3-6.7); Neutrophils Percent Auto 68.2 % (45.5-73.1); Red Blood Count 2.99 M/mm3 (4.6-6.20); Red Cell Distribution Width 20.5 % (11.5-14.5); White Blood Count 5.7 K/mm3 (4.5-10.0)
[2024-01-11 08:22] LABS: Anion Gap 6 mmol/L (4-12); Blood Urea Nitrogen 10 mg/dL (9-20); Calcium 8.5 mg/dL (8.4-10.2); Carbon Dioxide 27 mmol/L (22-30); Chloride 100 mmol/L (98-107); Estimated CRCL calculation 118 ml/min; Estimated Glomerular Filt Rate > 60; Glucose 80 mg/dL (65-110); Potassium 3.9 mmol/L (3.4-5.0); Sodium 133 mmol/L (137-145)
[2024-01-11 08:37] LABS: Glucose Point of Care 85 mg/dl (65-105)
[2024-01-11 09:14] LABS: Platelet Count Result 85 k/mm3 (150-375)
[2024-01-11 09:16] LABS: Platelet Estimate Decreased (Adequate)
[2024-01-11 09:17] LABS: Basophilic Stippling 2+; Hypochromasia 1+; Microcytosis 1+ (NORMAL); Poikilocytosis 1+
[2024-01-11 09:18] LABS: Schistocytes None Seen; Stomatocytes 1+
[2024-01-11] MEDS: MIRABEGRON 25 MG ER TABLET PO (09:31)
[2024-01-11] MEDS: FOLIC ACID 0.4 MG TABLET PO (09:31)
[2024-01-11] MEDS: FAMOTIDINE 20 MG TABLET PO (09:32)
[2024-01-11] MEDS: SERTRALINE HCL 50 MG TABLET PO ×2 (09:32→17:09)
[2024-01-11] MEDS: SODIUM CHLORIDE 1 GM TABLET 2 GM PO (09:32)
[2024-01-11] MEDS: ACETAMINOPHEN 500 MG TABLET PO ×2 (09:32→17:09)
[2024-01-11] MEDS: CLOPIDOGREL BISULFATE 75 MG TABLET PO (09:32)
[2024-01-11] MEDS: FERROUS SULFATE 325 MG TABLET DR BY MOUTH (09:32)
[2024-01-11] MEDS: ISOSORBIDE MONONITRATE 30 MG TAB.ER.24H PO (09:33)
[2024-01-11] MEDS: PANTOPRAZOLE 40 MG TABLET PO (09:33)
[2024-01-11] MEDS: MUPIROCIN 2% OINT 22 GM TUBE 1 APPLIC EACH NARE (09:33)
--- NOTE | 2024-01-11 10:19 | PM.IMPN ---
Progress Note: A&P Assessment and Plan (1) Pneumonia: Code(s): J18.9 - Pneumonia, unspecified organism Status: Acute (2) Hypo-osmolality and hyponatremia: Code(s): E87.1 - Hypo-osmolality and hyponatremia Status: Acute (3) Generalized weakness: Code(s): R53.1 - Weakness Status: Acute (4) Chronic hyponatremia: Code(s): E87.1 - Hypo-osmolality and hyponatremia Status: Acute (5) Chronic systolic (congestive) heart failure: Code(s): I50.22 - Chronic systolic (congestive) heart failure Status: Acute (6) Insulin dependent diabetes mellitus: Status: Chronic (7) Sepsis: Code(s): A41.9 - Sepsis, unspecified organism Status: Acute Plan This is a 83-year-old man coming from [place] is due to generalized weakness shortness of breath fever chills nausea vomiting reported. severe sepsis, community-acquired pneumonia, He was hypotensive on arrival to the ED. Oxygen status was adequate. Laboratory workup revealed a WBC of 6.4 hemoglobin of 7.2 platelet [address] head showed no acute abnormality Chest x-ray showed a right lower lobe consolidation consistent with pneumonia and also had elevated lactic acid Sepsis secondary to pneumonia receive IV fluid in the ER BNP elevated at 1190 Urinalysis negative for UTI. MRSA swab was positive influenza RSV and COVID was negative. Patient started vancomycin cefepime and levofloxacin. switched to oral antibiotics with doxycycline and Augmentin. pt developed rashes, dc doxycycline and Augmentin 12/10 No sign of infection For hyponatremia added on sodium tablets looks like chronic hyponatremia similar levels in the past. Unclear etiology for hyponatremia. TSH came back normal and cortisol level was adequate. Had fluid restriction with sodium tablets and had a diuresis with Lasix. Monitor sodium level sodium is trending up. 131 01/09 c/w current management sodium 133. change to 1 gm bid po Generalized weakness PT OT this has been more recent development over the past few months. No specific etiology identified. He is hypoalbuminemic. SPEP UPEP urinalysis does not show any proteinuria. Acute on chronic anemia hemoglobin down to 7.2 guaiac test was negative. no signs of bleeding repeat was lowered to 6.8 and received 1 unit of packed red blood cell transfusion post transfusion hemoglobin is up to 9.4. Stool for occult blood test negative. Hold Plavix and Lovenox. h and h monitor. And remains stable. 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 Alkaline phosphate is elevated however ultrasound of the liver was unremarkable and with his generalized weakness could be coming from bone. Thrombocytopenia mild chronic. B12 level is low normal will check methylmalonic acid level cannot entirely rule out B12 deficiency will start on empiric B12 supplementation. This could also explain the thrombocytopenia. Underlying bone marrow disorder needs to be ruled out consult Hematology as anemia and thrombocytopenia are worsening Elevated liver enzymes: LDH as elevated as well. Thrombocytopenia present. Hypoalbuminemic. Ferritin more than 2000 not indicative of iron deficiency could be acute phase reactant. Ultrasound liver negative. Had IV albumin therapy to help with edema as well as hypoalbuminemia History of dysphagia on thickened liquid speech to follow and cleared for regular diet which has been started History of congestive heart failure diastolic euvolemic on evaluation. Recent echo with EF 55-60% with hypokinesis of the apical lateral and mid anterior. Grade 1 diastolic dysfunction. received IV Lasix, Type 2 diabetes insulin dependent hold Lantus 10 un
--- NOTE | 2024-01-11 10:20 | PCNFU ---
Nutrition Follow-Up Complete: Suboptimal po intake related to varied appetite as evidenced by charted intake Goal: PO intake 75% of meals and supplements patient is progressing towards goal. We will continue current goal. Pt current nutrition is Regular with Ensure Compact BID. Last recorded weight is 74.9 kg, stable Bowel Motility:+BM reported 01/10 Labs Reviewed:Cr 0.4,Na 133 Meds Noted:Protonix,Folic Acid, Lantus, NovoLog Skin: WNL Additional Notes: Patient remains on a regular diet with ensure compact BID. Intake has averaged about 50% of meals. Today for breakfast 5% reported and drank 120 ml of Ensure drink. Patient is on isolation for MRSA. Agree with diet orders. Monitor intake, wt, labs. Follow up in 5 days.
[2024-01-11 12:14] LABS: Glucose Point of Care 167 mg/dl (65-105)
--- NOTE | 2024-01-11 16:14 | PDONCCN ---
HPI - Date of Consult Date/Time: 01/11/24 16:14 Requesting Physician: Felton Jeffries MD Primary Care Provider: Andry Vela, - Consult Narrative Reason for consult: Thrombocytopenia and anemia Narrative: Farhan Villalta is a 83 year old male with history of insulin-dependent diabetes, hypertension, chronic hyponatremia who is senior living resident came into the hospital with generalized weakness and diagnosed to have pneumonia. He presented with shortness of breath and cough. Chest x-ray showed right lower lobe consolidation. Patient had CT chest abdomen and pelvis done that showed small pleural effusion, small pericardial effusion and small volume of ascites. Spleen and liver was normal. MRSA swab was positive. Influenza, RSV and COVID was negative. He was initially started on vancomycin, cefepime and Levaquin and subsequently switched to doxycycline and Augmentin. And showed hemoglobin of 7.2 dropped to 6.8. Platelet count was 103969 now dropped to 85,000. He remains asymptomatic without any bleeding and bruising. Patient received 1 unit of packed red blood cell. He denies any previous history of malignancy or blood disorders. Review of Systems - Review of Systems All systems reviewed & are unremarkable except as noted in HPI and [facility] Medical History: Medical History (Last Reviewed 01/04/24 @ 17:26 by Alex Johnson MD) Essential hypertension History of coronary artery disease Insulin dependent diabetes mellitus Family History: Family History (Last Reviewed 01/05/24 @ 00:03 by Martha Cerda RN) Father Unknown family medical history Sibling Unknown family medical history Mother Myocardial infarct - Social History Social History: Social History (Last Reviewed 01/04/24 @ 17:26 by Alex Johnson MD) Alcohol Use: Alcohol intake: never Substance Use: Substance use: never Substance use type: does not use Others: Spiritual care concerns: No Smoking Status: Smoking status: Never smoker Second hand tobacco smoke exposure: No Social Determinants of Health: Do You Feel Safe in your Home?: Yes Has the Lack of Transportation Kept You From Medical Appointments or From Getting Medications?: No Within the Past 12 Months, Were You Worried Whether Your Food Would Run Out Before You Got Money to Buy More?: Never True What is Your Housing Situation Today?: I Have Housing Are You Worried That in the Next 2 Months, You May Not Have Your Own Housing to Live In?: No Do You Have Trouble Paying Your Heating Or Electricity Bill?: No Do You Have Trouble Paying For Medicines?: No Are You Currently Unemployed and Looking for Work?: No Highest Level of Education Completed: Associate Degree Do You Have Trouble With Childcare or the Care of a Family Member?: No Exam - Vital Signs Vital Signs - 24 hr 01/10/24 20:17 01/10/24 20:18 01/10/24 20:18 Temperature 36.6 C Pulse Rate 87 86 Respiratory Rate 18 18 Blood Pressure 130/64 Pulse Oximetry 91 100 Oxygen Delivery Room Air 01/10/24 20:00 01/10/24 20:00 01/11/24 00:00 Temperature Pulse Rate 89 83 Respiratory Rate Blood Pressure Pulse Oximetry Oxygen Delivery Room Air 01/11/24 03:05 01/10/24 20:28 01/11/24 03:15 Temperature Pulse Rate 82 90 84 Respiratory Rate 18 18 18 Blood Pressure Pulse Oximetry Oxygen Delivery 01/11/24 04:00 01/11/24 05:17 01/11/24 08:15 Temperature 36.7 C Pulse Rate 94 86 81 Respiratory Rate 14 19 Blood Pressure 129/58 L Pulse Oximetry 94 Oxygen Delivery 01/11/24 08:19 01/11/24 08:24 01/11/24 09:27 Temperature Pulse Rate 84 Respiratory Rate 16 Blood Pressure Pulse Oximetry 93 Oxygen Delivery Room Air Room Air 01/11/24 08:00 01/11/24 12:45 01/11/24 12:56 Temperature 36.5 C Pulse Rate 80 79 78 Respiratory Rate 16 16 16 Blood Pressure 128/
[2024-01-11 16:48] LABS: Methylmalonic Acid 194 nmol/L (87-318)
[2024-01-11 17:08] LABS: Glucose Point of Care 193 mg/dl (65-105)
[2024-01-11] MEDS: SODIUM CHLORIDE 1 GM TABLET PO (17:09)
[2024-01-11 20:00] LABS: Glucose Point of Care 179 mg/dl (65-105)
[2024-01-11] MEDS: TAMSULOSIN HCL 0.4 MG CAPSULE PO (20:51)
[2024-01-11] MEDS: DUTASTERIDE 0.5 MG CAPSULE PO (20:51)
[2024-01-11] MEDS: SIMVASTATIN 20 MG TABLET 40 MG PO (20:51)
[2024-01-11 23:14] LABS: Heparin Induced Platelet Antib Negative (Negative)
[2024-01-12] VITALS (22 sets, daily range): BP systolic 117–142; BP diastolic 73–85; PULSE 94–128; RESP 16–26; TEMP 36.5–37.7; O2SAT 91–97
[2024-01-12] MEDS: ALBUMIN HUMAN 25% 25 GM/100 ML 100 ML IVPB ×3 (02:32→15:02)
[2024-01-12 05:50] LABS: Basophils Percent Auto 0.4 % (0.2-1.2); Eosinophils Absolute Auto 0.1 K/mm3 (0-0.3); Eosinophils Percent Auto 1.8 % (0-4.4); Hematocrit 27.2 % (42.0-52.0); Hemoglobin 7.9 g/dL (14.0-18.0); Immature Granulocyte Absolute 0.09 K/mm3 (0.00-0.031); Immature Granulocyte Percent A 1.3 % (0-0.5); Immature Platelet Fraction Pct 8.4 % (0.9-11.2); Lymphocytes Absolute Auto 0.99 K/mm3 (0.9-3.2); Lymphocytes Percent Auto 14.6 % (18.3-44.2); Mean Corpuscular Hemoglobin 25.8 pg (26-34); Mean Corpuscular Volume 88.9 fl (80-100); Mean Platelet Volume 10.5 fl (7.4-10.4); Monocytes Absolute Auto 1.2 K/mm3 (0.1-0.6); Neutrophils Absolute Auto 4.4 K/mm3 (1.3-6.7); Neutrophils Percent Auto 64.9 % (45.5-73.1); Platelet Count Result 86 k/mm3 (150-375); Red Blood Count 3.06 M/mm3 (4.6-6.20); Red Cell Distribution Width 20.5 % (11.5-14.5); White Blood Count 6.8 K/mm3 (4.5-10.0)
[2024-01-12 05:57] LABS: Anion Gap 8 mmol/L (4-12); Blood Urea Nitrogen 11 mg/dL (9-20); Calcium 8.8 mg/dL (8.4-10.2); Carbon Dioxide 25 mmol/L (22-30); Chloride 99 mmol/L (98-107); Estimated CRCL calculation 115 ml/min; Estimated Glomerular Filt Rate > 60; Glucose 165 mg/dL (65-110); Potassium 3.9 mmol/L (3.4-5.0); Sodium 132 mmol/L (137-145)
[2024-01-12 07:01] LABS: Atypical Lymphocytes Present; Platelet Estimate Decreased (Adequate); Schistocytes None Seen
[2024-01-12 08:10] LABS: Glucose Point of Care 175 mg/dl (65-105)
[2024-01-12] MEDS: IPRATROPIUM 0.5 MG/ALBUTEROL SULFATE 2.5 MG AMPUL.NEB 3 ML INHALATION ×2 (08:21→13:36)
[2024-01-12] MEDS: ISOSORBIDE MONONITRATE 30 MG TAB.ER.24H PO (08:47)
[2024-01-12] MEDS: FAMOTIDINE 20 MG TABLET PO (08:48)
[2024-01-12] MEDS: ACETAMINOPHEN 500 MG TABLET PO (08:48)
[2024-01-12] MEDS: FERROUS SULFATE 325 MG TABLET DR BY MOUTH (08:48)
[2024-01-12] MEDS: FOLIC ACID 0.4 MG TABLET PO (08:48)
[2024-01-12] MEDS: MIRABEGRON 25 MG ER TABLET PO (08:48)
[2024-01-12] MEDS: PANTOPRAZOLE 40 MG TABLET PO (08:48)
[2024-01-12] MEDS: SERTRALINE HCL 50 MG TABLET PO ×2 (08:48→17:11)
[2024-01-12] MEDS: SODIUM CHLORIDE 1 GM TABLET PO ×2 (08:48→17:11)
[2024-01-12] MEDS: MUPIROCIN 2% OINT 22 GM TUBE 1 APPLIC EACH NARE (08:49)
[2024-01-12] MEDS: CLOPIDOGREL BISULFATE 75 MG TABLET PO (08:49)
[2024-01-12 11:58] LABS: Glucose Point of Care 225 mg/dl (65-105)
[2024-01-12] MEDS: INSULIN ASPART (*BKC) 100 UNITS/ML SUB-Q ×2 (12:12→17:19)
--- NOTE | 2024-01-12 15:33 | PM.IMPN ---
Progress Note: A&P Assessment and Plan (1) Pneumonia: Code(s): J18.9 - Pneumonia, unspecified organism Status: Acute (2) Anemia: Code(s): D64.9 - Anemia, unspecified Status: Acute (3) Sepsis: Code(s): A41.9 - Sepsis, unspecified organism Status: Acute (4) Chronic hyponatremia: Code(s): E87.1 - Hypo-osmolality and hyponatremia Status: Acute (5) Diabetes mellitus: Code(s): E11.9 - Type 2 diabetes mellitus without complications Status: Acute Plan 83-year-old male with a history of diastolic heart failure, hypertension, insulin-dependent diabetes mellitus, depression, chronic hyponatremia, CAD status post stenting to LCX (2012), distal RCA (2010), and PDA (2022) follow at [facility] heart and vascular with Dr. Grady, presents with generalized weakness for 2 weeks. Admitted on 01/04/2024. Community-acquired pneumonia -currently on room air. MRSA swab was positive. Started on vancomycin cefepime and levofloxacin which was switched to doxycycline and Augmentin but then the patient developed rashes in antibiotics have been discontinued. Severe sepsis -present on admission with hypotension. Likely due to pneumonia. Currently resolved. Cultures x2 from 01/11 without growth Chronic hyponatremia -has been in the mid 120s and after starting sodium chloride tablets he is in the low 130s. Continue to monitor -TSH level normal. Cortisol level adequate. Patient received fluid resuscitation and sodium chloride tablets. Generalized weakness -PT OT consulted. Discharge planning for acute rehab Acute on chronic anemia/thrombocytopenia -hemoglobin baseline in the 10s in November 2023. Presented with hemoglobin 7.2. -received 1 unit PRBC. Transfuse another. Goal hemoglobin greater than 8. -oncology consulted., thought to be due to infection/sepsis/drug-induced with multiple antibiotic use. Other possibilities include bone marrow disorders like myelodysplastic syndrome. Low iron and low iron saturation with elevated ferritin demonstrating acute on chronic disorder. Continue iron supplementation. B12 was on low side of normal. Continue B12 injections. Recommended to follow-up in outpatient setting with Oncology to decide further management. Transaminitis/Elevated LDH/hypoalbuminemia -liver ultrasound negative. -discontinue albumin infusion and recheck albumin level tomorrow -unclear etiology. He has been on a scheduled acetaminophen 500 mg p.o. b.i.d. at home has been ongoing in the hospital as well. Considering he has transaminitis will stop this and check acetaminophen level. Diastolic heart failure -appears compensated. Currently on Imdur [id number] diabetes mellitus -appears to be on Lantus 10 units b.i.d. and a sliding scale at home. -01/11 start Lantus 10 units q.h.s. along with Accu-Cheks a.c. HS and low-dose insulin sliding scale Depression: Continue sertraline CAD: Continue Plavix. Unclear why he is not on aspirin. Consider restarting this well monitoring hemoglobin if the platelet level is stable. Home dose simvastatin is being held due to elevated liver enzyme Hypertension: At goal. Continue Imdur FEN: Saline lock IV GI prophylaxis: Continue Protonix DVT prophylaxis: Lovenox on hold for now. Restart aspirin first and monitor hemoglobin Lines: Peripheral IV Code Status: Full code Dispo: Stable on medical floor. Discharge planning for rehab Subjective Date/time seen: 01/12/24 15:33 Interval history: No acute overnight events. The patient believes his breathing issues are resolved. Denies any complaints. Review of Systems Review of Systems: All systems reviewed & are unremarkable except as noted in HPI and below (Subjective) Exam Const: General: comfortable and no acute distress Eyes: Pupils: Equal, round and reactive pupils present Neck: Neck: supple Resp: Effort & Inspection: normal respiratory effort Auscultation: clear to a
[2024-01-12 15:58] LABS: Acetaminophen < 10 ug/mL (10-30)
[2024-01-12 16:59] LABS: Glucose Point of Care 203 mg/dl (65-105)
[2024-01-12] MEDS: SODIUM CHLORIDE 0.9% IV 250 ML 30 ML IV CONT (17:10)
--- NOTE | 2024-01-12 18:18 | ECG_ITS ---
SEE SCANNED COPY FOR CONFIRMED REPORT MTDD
[2024-01-12] MEDS: ONDANSETRON INJ 4 MG/2 ML VIAL IV PUSH (19:24)
--- NOTE | 2024-01-12 19:47 | PM.EVENT ---
Event Note Event Note Event Note: Cross Coverage Note: 21:00 - RN called to report tachypnea, worsening hypoxia, and N/V. Currently receiving blood transfusion. Tachycardia present prior to transfusion initiation, 120 use. Sat 89-90% on 2L, increased to 4L NC. Previous CXR on 01/04/2024 showed right lower lobe consolidation which may represent atelectasis or pneumonia. On exam, patient is ill-appearing, mild facial flushing, tachypnea with moderate diaphragmatic breathing, abdomen is distended and slightly firm with faint bowel sounds throughout - hypo to normoactive, and nontender. 2+ pitting edema to bilateral lower extremities, no asymmetry. Will repeat two view CXR and add KUB. Adding procalcitonin and lactic. Calcium XX and Hgb XX Reviewed blood cultures obtained on 01/04/2024, no growth after 5 days. Previous echo reviewed, last done on 12/01/2023 and showed EF of 55-60% with normal LV systolic function, hypokinesis of the apical lateral and mid anterolateral wall, grade 1 diastolic dysfunction. Plan dependent on CXR results. 98.5? F, HR 128, RR 20, 134/82, and 94% on 4 L nasal cannula. 23:00 - Patient resting more comfortably after O2 was increased. CXR showed moderate interstitial edema and small bilateral effusions which is new compared to previous. KUB showed gastric distension, otherwise normal bowel gas pattern. Hemoglobin is 9.5, albumin is 3.9, procalcitonin is 0.5, and lactic is 2.6. Will trial 40 of Lasix IVP. Monitor I&Os and daily weights. Lovenox is currently held, will add SCDs for prophylaxis. 98.1? F, HR 120, 117/73, and 91% on 4L. Increasing to 5L. Critical Care Time: I personally spent 35 minutes of direct patient care including (but not limited to) the physical examination, decision-making, bedside evaluation, review of medical records, review of labs and imaging, discussion with nursing staff and other providers for collaborative, critical care management of this patient.
[2024-01-12] MEDS: INSULIN GLARGINE (*BKC) 100 UNITS/ML 10 UNITS SUB-Q (20:22)
[2024-01-12] MEDS: DUTASTERIDE 0.5 MG CAPSULE PO (20:22)
[2024-01-12] MEDS: SIMVASTATIN 20 MG TABLET 40 MG PO (20:22)
[2024-01-12] MEDS: TAMSULOSIN HCL 0.4 MG CAPSULE PO (20:22)
[2024-01-12 20:23] LABS: Glucose Point of Care 200 mg/dl (65-105)
[2024-01-12 22:24] LABS: Hematocrit 30.8 % (42.0-52.0); Hemoglobin 9.5 g/dL (14.0-18.0)
[2024-01-12 22:35] LABS: Albumin Level 3.9 g/dL (3.5-5.1)
[2024-01-12 22:38] LABS: Lactic Acid Reflex 2.6 mmol/L (0.7-2.0)
[2024-01-12 23:06] LABS: Procalcitonin 0.5 ng/mL
[2024-01-12] MEDS: FUROSEMIDE INJ 40 MG/4 ML VIAL IV PUSH (23:31)
[2024-01-13] VITALS (23 sets, daily range): BP systolic 100–124; BP diastolic 60–86; PULSE 103–121; RESP 16–36; TEMP 36.4–37.5; O2SAT 91–96
[2024-01-13 01:23] LABS: Reflex Lactic Acid Yes or No Add Lactic
[2024-01-13 02:29] LABS: Hemoglobin 10.1 g/dL (14.0-18.0); Immature Platelet Fraction Pct 8.6 % (0.9-11.2); Mean Corpuscular HGB Conc 30.6 g/dl (32-36); Mean Corpuscular Hemoglobin 26.3 pg (26-34); Mean Corpuscular Volume 85.9 fl (80-100); Mean Platelet Volume 10.4 fl (7.4-10.4); Platelet Count Result 82 k/mm3 (150-375); Red Blood Count 3.84 M/mm3 (4.6-6.20); Red Cell Distribution Width 19.6 % (11.5-14.5); White Blood Count 12.2 K/mm3 (4.5-10.0)
[2024-01-13 02:39] LABS: Lactic Acid 2.3 mmol/L (0.7-2.0)
[2024-01-13 02:40] LABS: Alanine Aminotransferase 30 U/L (6-50); Albumin Level 3.9 g/dL (3.5-5.1); Alkaline Phosphatase 384 U/L (38-126); Anion Gap 8 mmol/L (4-12); Aspartate Amino Transferase 50 U/L (17-59); Bilirubin,Total 1.8 mg/dL (0.2-1.3); Blood Urea Nitrogen 15 mg/dL (9-20); Calcium 8.9 mg/dL (8.4-10.2); Carbon Dioxide 28 mmol/L (22-30); Chloride 98 mmol/L (98-107); Estimated CRCL calculation 94 ml/min; Estimated Glomerular Filt Rate > 60; Glucose 170 mg/dL (65-110); Magnesium 1.8 mg/dL (1.6-2.3); Potassium 3.9 mmol/L (3.4-5.0); Sodium 134 mmol/L (137-145)
[2024-01-13] MEDS: IPRATROPIUM 0.5 MG/ALBUTEROL SULFATE 2.5 MG AMPUL.NEB 3 ML INHALATION ×4 (02:51→21:05)
[2024-01-13 08:00] LABS: Glucose Point of Care 179 mg/dl (65-105)
[2024-01-13] MEDS: FAMOTIDINE 20 MG TABLET PO (09:43)
[2024-01-13] MEDS: CLOPIDOGREL BISULFATE 75 MG TABLET PO (09:43)
[2024-01-13] MEDS: ISOSORBIDE MONONITRATE 30 MG TAB.ER.24H PO (09:43)
[2024-01-13] MEDS: FOLIC ACID 0.4 MG TABLET PO (09:44)
[2024-01-13] MEDS: SODIUM CHLORIDE 1 GM TABLET PO ×2 (09:44→17:53)
[2024-01-13] MEDS: MIRABEGRON 25 MG ER TABLET PO (09:44)
[2024-01-13] MEDS: SERTRALINE HCL 50 MG TABLET PO ×2 (09:45→17:53)
[2024-01-13] MEDS: FERROUS SULFATE 325 MG TABLET DR BY MOUTH (09:45)
[2024-01-13] MEDS: PANTOPRAZOLE 40 MG TABLET PO (09:45)
--- NOTE | 2024-01-13 11:43 | PM.IMPN ---
Progress Note: A&P Assessment and Plan (1) Pneumonia: Code(s): J18.9 - Pneumonia, unspecified organism Status: Acute (2) Anemia: Code(s): D64.9 - Anemia, unspecified Status: Acute (3) Sepsis: Code(s): A41.9 - Sepsis, unspecified organism Status: Acute (4) Chronic hyponatremia: Code(s): E87.1 - Hypo-osmolality and hyponatremia Status: Acute (5) Diabetes mellitus: Code(s): E11.9 - Type 2 diabetes mellitus without complications Status: Acute Plan 83-year-old male with a history of diastolic heart failure, hypertension, insulin-dependent diabetes mellitus, depression, chronic hyponatremia, CAD status post stenting to LCX (2012), distal RCA (2010), and PDA (2022) follow at [facility] heart and vascular with Dr. Grady, presents with generalized weakness for 2 weeks. He previously lived at home with his Yenifer. [facility]. Admitted on 01/04/2024. Acute hypoxic respiratory failure -likely due to TACO/TRALI as this developed suddenly after 1 unit PRBC administered on the evening of 01/11. -BNP on 01/03 was 1190. Will recheck again on 01/12 to compare. reports he usually has skinny fingers and they are now swollen. -continue with Lasix 40 mg IV b.i.d., continue strict I&O -currently requiring 5 L nasal cannula Community-acquired pneumonia -currently on room air. MRSA swab was positive. Started on vancomycin cefepime and levofloxacin which was switched to doxycycline and Augmentin but then the patient developed rashes in antibiotics have been discontinued. -01/11 developed hypoxia requiring 5 L nasal cannula likely due to TACO/TRALI. He has a mild elevation in white count at 12.2. Continue to trend this and check procalcitonin as well. Monitor for fever. He has a wet cough but no sputum production. Severe sepsis -present on admission with hypotension. Likely due to pneumonia. Currently resolved. Blood cultures x2 from 01/11 without growth Chronic hyponatremia -has been in the mid 120s and after starting sodium chloride tablets he is in the low 130s. Continue to monitor -TSH level normal. Cortisol level adequate. Patient received fluid resuscitation and sodium chloride tablets. Generalized weakness -he had been previously living at home with his Andie. hurts he has been getting progressively more weak and declining in the past months. Prior to this admission he was at [facility] for rehab and began to fail. PT OT consulted. Plan is to discharge the patient back to SNF for rehab family is also considering permanent placement. Acute on chronic anemia/thrombocytopenia -hemoglobin baseline in the 10s in November 2023. Presented with hemoglobin 7.2. -received 1 unit PRBC. Transfuse another. Goal hemoglobin greater than 8. -oncology consulted., thought to be due to infection/sepsis/drug-induced with multiple antibiotic use. Other possibilities include bone marrow disorders like myelodysplastic syndrome. Low iron and low iron saturation with elevated ferritin demonstrating acute on chronic disorder. Continue iron supplementation. B12 was on low side of normal. Continue B12 injections. Recommended to follow-up in outpatient setting with Oncology to decide further management. On 01/12 the [facility] reports they would decline bone marrow biopsy, this was spoken in front of the patient and he had no objection Transaminitis/Elevated LDH/hypoalbuminemia -liver ultrasound negative. -discontinue albumin infusion. Albumin 3.9 -unclear etiology. Discontinue scheduled acetaminophen. Serum acetaminophen level negative. Diastolic heart failure -now decompensated on 01/12 likely due to circulatory overload from transfusion. -continue diuresis. Also currently on Imdur. Monitor hemodynamics [id number]-ahtsyamcx diabetes mellitus -appears to be on Lantus 10 units b.i.d. and a sliding scale at home. -01/11 start Lantus 10 units q.h.s. al
[2024-01-13 12:01] LABS: Glucose Point of Care 240 mg/dl (65-105)
[2024-01-13 12:10] LABS: NT Pro B Type Natriuretic Pept 27000 pg/mL (19.9-100)
[2024-01-13] MEDS: INSULIN ASPART (*BKC) 100 UNITS/ML SUB-Q ×2 (12:31→17:55)
[2024-01-13] MEDS: FUROSEMIDE INJ 40 MG/4 ML VIAL IV PUSH ×2 (12:31→17:53)
[2024-01-13 17:09] LABS: Glucose Point of Care 279 mg/dl (65-105)
[2024-01-13] MEDS: SIMVASTATIN 20 MG TABLET 40 MG PO (20:59)
[2024-01-13] MEDS: TAMSULOSIN HCL 0.4 MG CAPSULE PO (20:59)
[2024-01-13] MEDS: DUTASTERIDE 0.5 MG CAPSULE PO (20:59)
[2024-01-13] MEDS: MUPIROCIN 2% OINT 22 GM TUBE 1 APPLIC EACH NARE (21:02)
[2024-01-13 21:27] LABS: Glucose Point of Care 227 mg/dl (65-105)
[2024-01-13] MEDS: INSULIN GLARGINE (*BKC) 100 UNITS/ML 10 UNITS SUB-Q (21:28)
[2024-01-14] VITALS (17 sets, daily range): BP systolic 92–104; BP diastolic 55–59; PULSE 88–110; RESP 16–24; TEMP 36.8–36.9; O2SAT 92–95; BMI 10.0
[2024-01-14] MEDS: IPRATROPIUM 0.5 MG/ALBUTEROL SULFATE 2.5 MG AMPUL.NEB 3 ML INHALATION ×4 (02:15→20:28)
[2024-01-14 05:59] LABS: Basophils Percent Auto 0.4 % (0.2-1.2); Eosinophils Percent Auto 0.3 % (0-4.4); Hematocrit 31.9 % (42.0-52.0); Hemoglobin 9.7 g/dL (14.0-18.0); Immature Granulocyte Absolute 0.12 K/mm3 (0.00-0.031); Immature Granulocyte Percent A 1.3 % (0-0.5); Immature Platelet Fraction Pct 9.2 % (0.9-11.2); Lymphocytes Absolute Auto 1.41 K/mm3 (0.9-3.2); Lymphocytes Percent Auto 15.9 % (18.3-44.2); Mean Corpuscular HGB Conc 30.4 g/dl (32-36); Mean Corpuscular Hemoglobin 26.4 pg (26-34); Mean Corpuscular Volume 86.9 fl (80-100); Mean Platelet Volume 11.2 fl (7.4-10.4); Monocytes Absolute Auto 1.3 K/mm3 (0.1-0.6); Neutrophils Percent Auto 67.1 % (45.5-73.1); Platelet Count Result 75 k/mm3 (150-375); Red Blood Count 3.67 M/mm3 (4.6-6.20); Red Cell Distribution Width 19.7 % (11.5-14.5); White Blood Count 8.9 K/mm3 (4.5-10.0)
[2024-01-14 06:07] LABS: Anion Gap 5 mmol/L (4-12); Blood Urea Nitrogen 20 mg/dL (9-20); Calcium 8.6 mg/dL (8.4-10.2); Carbon Dioxide 32 mmol/L (22-30); Chloride 94 mmol/L (98-107); Estimated CRCL calculation 97 ml/min; Estimated Glomerular Filt Rate > 60; Glucose 196 mg/dL (65-110); Magnesium 1.7 mg/dL (1.6-2.3); Potassium 3.6 mmol/L (3.4-5.0); Sodium 131 mmol/L (137-145)
[2024-01-14 06:20] LABS: Procalcitonin 0.7 ng/mL
[2024-01-14 08:05] LABS: Glucose Point of Care 323 mg/dl (65-105)
[2024-01-14] MEDS: INSULIN ASPART (*BKC) 100 UNITS/ML SUB-Q ×2 (08:18→12:23)
[2024-01-14] MEDS: MIRABEGRON 25 MG ER TABLET PO (08:21)
[2024-01-14] MEDS: PANTOPRAZOLE 40 MG TABLET PO (08:21)
[2024-01-14] MEDS: FERROUS SULFATE 325 MG TABLET DR BY MOUTH (08:21)
[2024-01-14] MEDS: FOLIC ACID 0.4 MG TABLET PO (08:21)
[2024-01-14] MEDS: SERTRALINE HCL 50 MG TABLET PO ×2 (08:21→16:49)
[2024-01-14] MEDS: CLOPIDOGREL BISULFATE 75 MG TABLET PO (08:21)
[2024-01-14] MEDS: SODIUM CHLORIDE 1 GM TABLET PO ×2 (08:21→16:48)
[2024-01-14] MEDS: ISOSORBIDE MONONITRATE 30 MG TAB.ER.24H PO (08:21)
[2024-01-14] MEDS: FAMOTIDINE 20 MG TABLET PO (08:21)
[2024-01-14] MEDS: MUPIROCIN 2% OINT 22 GM TUBE 1 APPLIC EACH NARE ×2 (08:23→20:21)
[2024-01-14] MEDS: FUROSEMIDE INJ 40 MG/4 ML VIAL IV PUSH ×2 (08:31→16:49)
--- NOTE | 2024-01-14 09:33 | PM.IMPN ---
Progress Note: A&P Assessment and Plan (1) Pneumonia: Code(s): J18.9 - Pneumonia, unspecified organism Status: Acute (2) Anemia: Code(s): D64.9 - Anemia, unspecified Status: Acute (3) Sepsis: Code(s): A41.9 - Sepsis, unspecified organism Status: Acute (4) Chronic hyponatremia: Code(s): E87.1 - Hypo-osmolality and hyponatremia Status: Acute (5) Diabetes mellitus: Code(s): E11.9 - Type 2 diabetes mellitus without complications Status: Acute (6) TACO (transfusion associated circulatory overload): Code(s): E87.71 - Transfusion associated circulatory overload Status: Acute Plan 83-year-old male with a history of diastolic heart failure, hypertension, insulin-dependent diabetes mellitus, depression, chronic hyponatremia, CAD status post stenting to LCX (2012), distal RCA (2010), and PDA (2022) follow at [facility] heart and vascular with Dr. Grady, presents with generalized weakness for 2 weeks. He previously lived at home with his Yenifer. Presents [place] [facility] [place]. Admitted on 01/04/2024. Acute hypoxic respiratory failure -likely due to TACO/TRALI as this developed suddenly after 1 unit PRBC administered on the evening of 01/11. -BNP on 01/03 was 1190. Repeat on 01/13 27,000. reports he usually has skinny fingers and they are now swollen. He also has 1 to 2+ bilateral lower extremity edema below the knees. He is positive 6 L since admission. -responded well to Lasix. Continue with Lasix 40 mg IV b.i.d. continue strict I&O, daily weights. -now down to 3 L nasal cannula from 5. Community-acquired pneumonia -currently on room air. MRSA swab was positive. Started on vancomycin cefepime and levofloxacin which was switched to doxycycline and Augmentin but then the patient developed rashes in antibiotics have been discontinued. -01/11 developed hypoxia requiring 5 L nasal cannula likely due to TACO/TRALI. He has a mild elevation in white count at 12.2 which is now resolved. Procalcitonin level normal. He has a wet cough but no sputum production. Severe sepsis -present on admission with hypotension. Likely due to pneumonia. Currently resolved. Blood cultures x2 from 01/11 without growth Chronic hyponatremia -has been in the mid 120s and after starting sodium chloride tablets he is in the low 130s. Continue to monitor -TSH level normal. Cortisol level adequate. Patient received fluid resuscitation and sodium chloride tablets. Generalized weakness -he had been previously living at home with his Andie. hurts he has been getting progressively more weak and declining in the past months. Prior to this admission he was at [facility] for rehab and began to fail. PT OT consulted. Plan is to discharge the patient back to SNF for rehab family is also considering permanent placement. Acute on chronic anemia/thrombocytopenia -hemoglobin baseline in the 10s in November 2023. Presented with hemoglobin 7.2. -received 1 unit PRBC. Transfuse another. Goal hemoglobin greater than 8. -oncology consulted., thought to be due to infection/sepsis/drug-induced with multiple antibiotic use. Other possibilities include bone marrow disorders like myelodysplastic syndrome. Low iron and low iron saturation with elevated ferritin demonstrating acute on chronic disorder. Continue iron supplementation. B12 was on low side of normal. Continue B12 injections. Recommended to follow-up in outpatient setting with Oncology to decide further management. On 01/12 the Andie reports they would decline bone marrow biopsy, this was spoken in front of the patient and he had no objection Transaminitis/Elevated LDH/hypoalbuminemia -liver ultrasound negative. -discontinue albumin infusion. Albumin 3.9 -unclear etiology. Could be due to congestion. Discontinue scheduled acetaminophen. Serum acetaminophen level negative. Diastolic heart failure -now decompensated
[2024-01-14 12:13] LABS: Glucose Point of Care 209 mg/dl (65-105)
--- NOTE | 2024-01-14 13:47 | PCOTNOTE ---
Attempted to see Patient at this time. Patient in bed, declines to participate. Patient verbalized, leave me alone, I'm sleeping .
[2024-01-14 16:56] LABS: Glucose Point of Care 194 mg/dl (65-105)
[2024-01-14] MEDS: INSULIN GLARGINE (*BKC) 100 UNITS/ML 20 UNITS SUB-Q (20:21)
[2024-01-14] MEDS: TAMSULOSIN HCL 0.4 MG CAPSULE PO (20:21)
[2024-01-14] MEDS: DUTASTERIDE 0.5 MG CAPSULE PO (20:21)
[2024-01-14] MEDS: SIMVASTATIN 20 MG TABLET 40 MG PO (20:21)
[2024-01-14 20:33] LABS: Glucose Point of Care 205 mg/dl (65-105)
[2024-01-15] VITALS (18 sets, daily range): BP systolic 102–118; BP diastolic 57–76; PULSE 90–111; RESP 16–26; TEMP 36.4–37.1; O2SAT 94–98; BMI 10.0
[2024-01-15] MEDS: IPRATROPIUM 0.5 MG/ALBUTEROL SULFATE 2.5 MG AMPUL.NEB 3 ML INHALATION ×4 (01:30→19:56)
[2024-01-15 05:33] LABS: Basophils Percent Auto 0.4 % (0.2-1.2); Eosinophils Absolute Auto 0.1 K/mm3 (0-0.3); Eosinophils Percent Auto 0.8 % (0-4.4); Hematocrit 31.7 % (42.0-52.0); Hemoglobin 9.2 g/dL (14.0-18.0); Immature Granulocyte Absolute 0.11 K/mm3 (0.00-0.031); Immature Granulocyte Percent A 1.4 % (0-0.5); Immature Platelet Fraction Pct 11.6 % (0.9-11.2); Lymphocytes Absolute Auto 1.39 K/mm3 (0.9-3.2); Lymphocytes Percent Auto 17.5 % (18.3-44.2); Mean Corpuscular Hemoglobin 25.8 pg (26-34); Mean Corpuscular Volume 88.8 fl (80-100); Mean Platelet Volume 11.9 fl (7.4-10.4); Monocytes Absolute Auto 1.1 K/mm3 (0.1-0.6); Monocytes Percent Auto 14.2 % (2.6-8.5); Neutrophils Absolute Auto 5.2 K/mm3 (1.3-6.7); Neutrophils Percent Auto 65.7 % (45.5-73.1); Platelet Count Result 67 k/mm3 (150-375); Red Blood Count 3.57 M/mm3 (4.6-6.20); Red Cell Distribution Width 19.7 % (11.5-14.5)
[2024-01-15 05:41] LABS: Alanine Aminotransferase 34 U/L (6-50); Alkaline Phosphatase 343 U/L (38-126); Anion Gap 6 mmol/L (4-12); Aspartate Amino Transferase 77 U/L (17-59); Bilirubin,Total 1.2 mg/dL (0.2-1.3); Blood Urea Nitrogen 22 mg/dL (9-20); Calcium 8.3 mg/dL (8.4-10.2); Carbon Dioxide 30 mmol/L (22-30); Chloride 94 mmol/L (98-107); Estimated CRCL calculation 93 ml/min; Estimated Glomerular Filt Rate > 60; Glucose 146 mg/dL (65-110); Magnesium 1.8 mg/dL (1.6-2.3); Potassium 3.3 mmol/L (3.4-5.0); Sodium 130 mmol/L (137-145)
[2024-01-15 06:24] LABS: Hypochromasia 1+; Platelet Estimate Decreased (Adequate); Schistocytes None Seen
[2024-01-15 07:59] LABS: Glucose Point of Care 181 mg/dl (65-105)
[2024-01-15] MEDS: CYANOCOBALAMIN INJ 1,000 MCG/ML VIAL 1000 MCG IM (09:23)
[2024-01-15] MEDS: PANTOPRAZOLE 40 MG TABLET PO (09:23)
[2024-01-15] MEDS: FERROUS SULFATE 325 MG TABLET DR BY MOUTH (09:23)
[2024-01-15] MEDS: FAMOTIDINE 20 MG TABLET PO (09:23)
[2024-01-15] MEDS: FOLIC ACID 0.4 MG TABLET PO (09:23)
[2024-01-15] MEDS: CLOPIDOGREL BISULFATE 75 MG TABLET PO (09:23)
[2024-01-15] MEDS: ISOSORBIDE MONONITRATE 30 MG TAB.ER.24H PO (09:23)
[2024-01-15] MEDS: FUROSEMIDE INJ 40 MG/4 ML VIAL IV PUSH ×3 (09:23→17:29)
[2024-01-15] MEDS: SERTRALINE HCL 50 MG TABLET PO ×2 (09:23→16:40)
[2024-01-15] MEDS: MIRABEGRON 25 MG ER TABLET PO (09:23)
[2024-01-15] MEDS: MUPIROCIN 2% OINT 22 GM TUBE 1 APPLIC EACH NARE ×2 (09:24→20:17)
[2024-01-15] MEDS: SODIUM CHLORIDE 1 GM TABLET PO ×2 (09:24→16:40)
[2024-01-15 11:42] LABS: Glucose Point of Care 216 mg/dl (65-105)
[2024-01-15] MEDS: INSULIN ASPART (*BKC) 100 UNITS/ML SUB-Q ×2 (11:43→17:00)
--- NOTE | 2024-01-15 15:25 | PCPTNOTE ---
Attempted to see patient for PT, however per RN advised not to see patient for PT at this time.
[2024-01-15 16:51] LABS: Glucose Point of Care 256 mg/dl (65-105)
--- NOTE | 2024-01-15 17:03 | PM.IMPN ---
Progress Note: A&P Assessment and Plan (1) Pneumonia: Code(s): J18.9 - Pneumonia, unspecified organism Status: Acute (2) Anemia: Code(s): D64.9 - Anemia, unspecified Status: Acute (3) Sepsis: Code(s): A41.9 - Sepsis, unspecified organism Status: Acute (4) Chronic hyponatremia: Code(s): E87.1 - Hypo-osmolality and hyponatremia Status: Acute (5) Diabetes mellitus: Code(s): E11.9 - Type 2 diabetes mellitus without complications Status: Acute (6) TACO (transfusion associated circulatory overload): Code(s): E87.71 - Transfusion associated circulatory overload Status: Acute Plan 83-year-old male with a history of diastolic heart failure, hypertension, insulin-dependent diabetes mellitus, depression, chronic hyponatremia, CAD status post stenting to LCX (2012), distal RCA (2010), and PDA (2022) follow at [facility] heart and vascular with Dr. Grady, presents with generalized weakness for 2 weeks. He previously lived at home with his Yenifer. Presents from rehab at a long-term facility. Admitted on 01/04/2024. On 01/14 he remains on 3 L nasal cannula and repeat chest x-ray demonstrates increasing pleural effusion greater on the right side. Continue Lasix 40 mg IV b.i.d. and give another 1 time dose 40 mg IV x1 now. Check a two view chest x-ray in the morning to see where he goes and possibly have to do a thoracentesis. Could be related to the blood transfusion and tacos/TRALI. He is also positive 6 L since admission. NPO midnight. Hold Plavix. Will not restart aspirin or Lovenox as well as his platelets continue to trend down. Monitor for bleeding. Will have to consider this and discuss this in great length with the patient and his as he has risk of bleeding with a thoracentesis. Continue to monitor closely. Acute hypoxic respiratory failure -likely due to TACO/TRALI as this developed suddenly after 1 unit PRBC administered on the evening of 01/11. -BNP on 01/03 was 1190. Repeat on 01/13 27,000. reports he usually has skinny fingers and they are now swollen. He also has 1 to 2+ bilateral lower extremity edema below the knees. He is positive 6 L since admission. -responded well to Lasix. Continue with Lasix 40 mg IV b.i.d. continue strict I&O, daily weights. -now down to 3 L nasal cannula from . Community-acquired pneumonia -currently on room air. MRSA swab was positive. Started on vancomycin cefepime and levofloxacin which was switched to doxycycline and Augmentin but then the patient developed rashes in antibiotics have been discontinued. -01/11 developed hypoxia requiring 5 L nasal cannula likely due to TACO/TRALI. He has a mild elevation in white count at 12.2 which is now resolved. Procalcitonin level normal. He has a wet cough but no sputum production. Severe sepsis -present on admission with hypotension. Likely due to pneumonia. Currently resolved. Blood cultures x2 from 01/11 without growth Chronic hyponatremia -has been in the mid 120s and after starting sodium chloride tablets he is in the low 130s. Continue to monitor -TSH level normal. Cortisol level adequate. Patient received fluid resuscitation and sodium chloride tablets. Generalized weakness -he had been previously living at home with his Andie. hurts he has been getting progressively more weak and declining in the past months. Prior to this admission he was at [facility] for rehab and began to fail. PT OT consulted. Plan is to discharge the patient back to SNF for rehab family is also considering permanent placement. Acute on chronic anemia/thrombocytopenia -hemoglobin baseline in the 10s in November 2023. Presented with hemoglobin 7.2. -received 1 unit PRBC. Transfuse another. Goal hemoglobin greater than 8. -oncology consulted., thought to be due to infection/sepsis/drug-induced with multiple antibiotic use. Other possibilities include bone marrow disorders like m
[2024-01-15] MEDS: POTASSIUM CHLORIDE 20 MEQ ER TABLET PO (17:29)
[2024-01-15 20:06] LABS: Glucose Point of Care 172 mg/dl (65-105)
[2024-01-15] MEDS: SIMVASTATIN 20 MG TABLET 40 MG PO (20:10)
[2024-01-15] MEDS: TAMSULOSIN HCL 0.4 MG CAPSULE PO (20:10)
[2024-01-15] MEDS: DUTASTERIDE 0.5 MG CAPSULE PO (20:10)
[2024-01-15] MEDS: INSULIN GLARGINE (*BKC) 100 UNITS/ML 20 UNITS SUB-Q (20:15)
[2024-01-15 20:59] LABS: Immunofixation, Serum Normal pattern.
[2024-01-16] VITALS (19 sets, daily range): BP systolic 94–117; BP diastolic 57–65; PULSE 84–110; RESP 16–22; TEMP 36.5–37.2; O2SAT 90–98
[2024-01-16] MEDS: IPRATROPIUM 0.5 MG/ALBUTEROL SULFATE 2.5 MG AMPUL.NEB 3 ML INHALATION ×4 (02:11→21:06)
[2024-01-16 04:51] LABS: Hematocrit 30.9 % (42.0-52.0); Hemoglobin 9.3 g/dL (14.0-18.0); Mean Corpuscular HGB Conc 30.1 g/dl (32-36); Mean Corpuscular Hemoglobin 25.9 pg (26-34); Mean Corpuscular Volume 86.1 fl (80-100); Mean Platelet Volume 11.9 fl (7.4-10.4); Platelet Count Result 63 k/mm3 (150-375); Red Blood Count 3.59 M/mm3 (4.6-6.20); Red Cell Distribution Width 19.5 % (11.5-14.5); White Blood Count 7.2 K/mm3 (4.5-10.0)
[2024-01-16 05:02] LABS: Anion Gap 6 mmol/L (4-12); Blood Urea Nitrogen 23 mg/dL (9-20); Calcium 8.1 mg/dL (8.4-10.2); Carbon Dioxide 35 mmol/L (22-30); Chloride 93 mmol/L (98-107); Estimated CRCL calculation 93 ml/min; Estimated Glomerular Filt Rate > 60; Glucose 127 mg/dL (65-110); Magnesium 1.7 mg/dL (1.6-2.3); Potassium 3.3 mmol/L (3.4-5.0); Sodium 134 mmol/L (137-145)
[2024-01-16 08:29] LABS: Glucose Point of Care 131 mg/dl (65-105)
[2024-01-16] MEDS: FAMOTIDINE 20 MG TABLET PO (09:01)
[2024-01-16] MEDS: FERROUS SULFATE 325 MG TABLET DR BY MOUTH (09:01)
[2024-01-16] MEDS: MIRABEGRON 25 MG ER TABLET PO (09:01)
[2024-01-16] MEDS: SERTRALINE HCL 50 MG TABLET PO ×2 (09:01→17:17)
[2024-01-16] MEDS: SODIUM CHLORIDE 1 GM TABLET PO ×2 (09:01→17:19)
[2024-01-16] MEDS: ISOSORBIDE MONONITRATE 30 MG TAB.ER.24H PO (09:01)
[2024-01-16] MEDS: PANTOPRAZOLE 40 MG TABLET PO (09:01)
[2024-01-16] MEDS: POTASSIUM CHLORIDE 20 MEQ ER TABLET PO ×2 (09:01→17:20)
[2024-01-16] MEDS: FOLIC ACID 0.4 MG TABLET PO (09:01)
[2024-01-16] MEDS: MUPIROCIN 2% OINT 22 GM TUBE 1 APPLIC EACH NARE (09:02)
[2024-01-16] MEDS: FUROSEMIDE INJ 40 MG/4 ML VIAL IV PUSH (09:02)
--- NOTE | 2024-01-16 10:42 | PCNFU ---
Nutrition Follow-Up Complete: Suboptimal po intake related to varied appetite as evidenced by charted intake Goal; PO intake 75% of meals and supplements Patient is not progressing towards goal. We will continue current goal. Pt current nutrition is NPO. Nutrition recommendation: Regular with ensure compact TID. Last recorded weight is 68.9 kg, down from 74.6 kg on admit. Bowel Motility: +BM reported 01/14 Labs Reviewed: Glu 127, BUN 23, Na 134, Hct 30.9,Hgb 9.3 Meds Noted:Lovenox, NovoLog, Lanuts, Protonix Skin: WNL Additional Notes: Patient to have thoracentesis today. NPO for procedure. Oral Intake has been poor, 0-10% reported. Patient is drinking diet supplements. Recommend to continue diet supplements on trays for an additional 220 kcal and 9 gms protein. PO intake encouraged. Monitor intake, wt, labs. Follow up in 5 days.
[2024-01-16 11:49] LABS: Glucose Point of Care 133 mg/dl (65-105)
--- NOTE | 2024-01-16 16:35 | PM.IMPN ---
Progress Note: A&P Assessment and Plan (1) Pneumonia: Code(s): J18.9 - Pneumonia, unspecified organism Status: Acute (2) Anemia: Code(s): D64.9 - Anemia, unspecified Status: Acute (3) Sepsis: Code(s): A41.9 - Sepsis, unspecified organism Status: Acute (4) Chronic hyponatremia: Code(s): E87.1 - Hypo-osmolality and hyponatremia Status: Acute (5) Diabetes mellitus: Code(s): E11.9 - Type 2 diabetes mellitus without complications Status: Acute (6) TACO (transfusion associated circulatory overload): Code(s): E87.71 - Transfusion associated circulatory overload Status: Acute Plan 83-year-old male with a history of diastolic heart failure, hypertension, insulin-dependent diabetes mellitus, depression, chronic hyponatremia, CAD status post stenting to LCX (2012), distal RCA (2010), and PDA (2022) follow at [facility] heart and vascular with Dr. Grady, presents with generalized weakness for 2 weeks. He previously lived at home with his Yenifer. Pres[place] [facility] [place] Admitted on 01/04/2024. On 01/14 he remains on 3 L nasal cannula and repeat chest x-ray demonstrates increasing pleural effusion greater on the right side. Continue Lasix 40 mg IV b.i.d. and give another 1 time dose 40 mg IV x1 now. Check a two view chest x-ray in the morning to see where he goes and possibly have to do a thoracentesis. Could be related to the blood transfusion and tacos/TRALI. He is also positive 6 L since admission. NPO midnight. Hold Plavix. Will not restart aspirin or Lovenox as well as his platelets continue to trend down. Monitor for bleeding. Will have to consider this and discuss this in great length with the patient and his as he has risk of bleeding with a thoracentesis. Continue to monitor closely. January 15 update: He is brought down to 2 L nasal cannula now. He appears trying the mucous membranes so will take him down to only for 20 mg of Lasix q.day. replace potassium and recheck. Sugars are better controlled. Continue current insulin regimen. Acute hypoxic respiratory failure -likely due to TACO/TRALI as this developed suddenly after 1 unit PRBC administered on the evening of 01/11. -BNP on 01/03 was 1190. Repeat on 01/13 27,000. reports he usually has skinny fingers and they are now swollen. He also has 1 to 2+ bilateral lower extremity edema below the knees. He is positive 6 L since admission. -responded well to Lasix. Continue with Lasix 40 mg IV b.i.d. continue strict I&O, daily weights. -now down to 3 L nasal cannula from 5. Community-acquired pneumonia -currently on room air. MRSA swab was positive. Started on vancomycin cefepime and levofloxacin which was switched to doxycycline and Augmentin but then the patient developed rashes in antibiotics have been discontinued. -01/11 developed hypoxia requiring 5 L nasal cannula likely due to TACO/TRALI. He has a mild elevation in white count at 12.2 which is now resolved. Procalcitonin level normal. He has a wet cough but no sputum production. Severe sepsis -present on admission with hypotension. Likely due to pneumonia. Currently resolved. Blood cultures x2 from 01/11 without growth Chronic hyponatremia -has been in the mid 120s and after starting sodium chloride tablets he is in the low 130s. Continue to monitor -TSH level normal. Cortisol level adequate. Patient received fluid resuscitation and sodium chloride tablets. Generalized weakness -he had been previously living at home with his Andie. hurts he has been getting progressively more weak and declining in the past months. Prior to this admission he was at [facility] for rehab and began to fail. PT OT consulted. Plan is to discharge the patient back to SNF for rehab family is also considering permanent placement. Acute on chronic anemia/thrombocytopenia -hemoglobin baseline in the 10s in November 2023. Presente
[2024-01-16 17:01] LABS: Glucose Point of Care 119 mg/dl (65-105)
[2024-01-16] MEDS: ACETAMINOPHEN 325 MG TABLET 650 MG PO (17:20)
[2024-01-16 21:01] LABS: Glucose Point of Care 291 mg/dl (65-105)
[2024-01-16] MEDS: INSULIN GLARGINE (*BKC) 100 UNITS/ML 20 UNITS SUB-Q (21:17)
[2024-01-16] MEDS: DUTASTERIDE 0.5 MG CAPSULE PO (21:17)
[2024-01-16] MEDS: SIMVASTATIN 20 MG TABLET 40 MG PO (21:17)
[2024-01-16] MEDS: TAMSULOSIN HCL 0.4 MG CAPSULE PO (21:18)
[2024-01-17] VITALS (19 sets, daily range): BP systolic 93–137; BP diastolic 50–73; PULSE 84–101; RESP 16–26; TEMP 36.7–37.5; O2SAT 92–99
[2024-01-17] MEDS: IPRATROPIUM 0.5 MG/ALBUTEROL SULFATE 2.5 MG AMPUL.NEB 3 ML INHALATION ×4 (02:50→20:24)
[2024-01-17 05:32] LABS: Hematocrit 33.2 % (42.0-52.0); Hemoglobin 9.9 g/dL (14.0-18.0); Mean Corpuscular HGB Conc 29.8 g/dl (32-36); Mean Corpuscular Hemoglobin 26.1 pg (26-34); Mean Corpuscular Volume 87.6 fl (80-100); Mean Platelet Volume 10.5 fl (7.4-10.4); Platelet Count Result 57 k/mm3 (150-375); Red Blood Count 3.79 M/mm3 (4.6-6.20); White Blood Count 6.6 K/mm3 (4.5-10.0)
[2024-01-17 05:43] LABS: Alanine Aminotransferase 77 U/L (6-50); Albumin Level 3.1 g/dL (3.5-5.1); Alkaline Phosphatase 491 U/L (38-126); Anion Gap 3 mmol/L (4-12); Aspartate Amino Transferase 183 U/L (17-59); Bilirubin,Total 1.2 mg/dL (0.2-1.3); Blood Urea Nitrogen 25 mg/dL (9-20); Calcium 8.4 mg/dL (8.4-10.2); Carbon Dioxide 37 mmol/L (22-30); Chloride 94 mmol/L (98-107); Estimated CRCL calculation 89 ml/min; Estimated Glomerular Filt Rate > 60; Glucose 125 mg/dL (65-110); Potassium 3.8 mmol/L (3.4-5.0); Sodium 134 mmol/L (137-145)
[2024-01-17 08:16] LABS: Glucose Point of Care 100 mg/dl (65-105)
--- NOTE | 2024-01-17 09:04 | PCDIET ---
Nutrition note: Wound care saw patient yesterday and found new deep tissue pressure injuries to sacrum and coccyx. Adding Tremaine BID for additional 90 kcal and 2.5 g protein each for wound support.
[2024-01-17] MEDS: SODIUM CHLORIDE 1 GM TABLET PO (09:20)
[2024-01-17] MEDS: MIRABEGRON 25 MG ER TABLET PO (09:20)
[2024-01-17] MEDS: FAMOTIDINE 20 MG TABLET PO (09:20)
[2024-01-17] MEDS: FOLIC ACID 0.4 MG TABLET PO (09:20)
[2024-01-17] MEDS: PANTOPRAZOLE 40 MG TABLET PO (09:20)
[2024-01-17] MEDS: FERROUS SULFATE 325 MG TABLET DR BY MOUTH (09:20)
[2024-01-17] MEDS: FUROSEMIDE 20 MG TABLET PO (09:20)
[2024-01-17] MEDS: POTASSIUM CHLORIDE 20 MEQ ER TABLET PO (09:21)
[2024-01-17] MEDS: ISOSORBIDE MONONITRATE 30 MG TAB.ER.24H PO (09:21)
[2024-01-17] MEDS: ACETAMINOPHEN 325 MG TABLET 650 MG PO ×2 (09:21→17:09)
[2024-01-17] MEDS: SERTRALINE HCL 50 MG TABLET PO ×2 (09:21→17:09)
[2024-01-17] MEDS: MUPIROCIN 2% OINT 22 GM TUBE 1 APPLIC EACH NARE ×2 (09:22→20:26)
[2024-01-17 12:10] LABS: Glucose Point of Care 265 mg/dl (65-105)
[2024-01-17] MEDS: INSULIN ASPART (*BKC) 100 UNITS/ML SUB-Q (12:21)
--- NOTE | 2024-01-17 15:33 | PM.IMPN ---
Progress Note: A&P Assessment and Plan (1) Pneumonia: Code(s): J18.9 - Pneumonia, unspecified organism Status: Acute (2) Anemia: Code(s): D64.9 - Anemia, unspecified Status: Acute (3) Sepsis: Code(s): A41.9 - Sepsis, unspecified organism Status: Acute (4) Chronic hyponatremia: Code(s): E87.1 - Hypo-osmolality and hyponatremia Status: Acute (5) Diabetes mellitus: Code(s): E11.9 - Type 2 diabetes mellitus without complications Status: Acute (6) TACO (transfusion associated circulatory overload): Code(s): E87.71 - Transfusion associated circulatory overload Status: Acute Plan 83-year-old male with a history of diastolic heart failure, hypertension, insulin-dependent diabetes mellitus, depression, chronic hyponatremia, CAD status post stenting to LCX (2012), distal RCA (2010), and PDA (2022) follow at [facility] heart and vascular with Dr. Grady, presents with generalized weakness for 2 weeks. He previously lived at home with his Yenifer. Presents from rehab at a custodial facility. Admitted on 01/04/2024. On 01/14 he remains on 3 L nasal cannula and repeat chest x-ray demonstrates increasing pleural effusion greater on the right side. Continue Lasix 40 mg IV b.i.d. and give another 1 time dose 40 mg IV x1 now. Check a two view chest x-ray in the morning to see where he goes and possibly have to do a thoracentesis. Could be related to the blood transfusion and tacos/TRALI. He is also positive 6 L since admission. NPO midnight. Hold Plavix. Will not restart aspirin or Lovenox as well as his platelets continue to trend down. Monitor for bleeding. Will have to consider this and discuss this in great length with the patient and his as he has risk of bleeding with a thoracentesis. Continue to monitor closely. January 15 update: He is brought down to 2 L nasal cannula now. He appears trying the mucous membranes so will take him down to only for 20 mg of Lasix q.day. replace potassium and recheck. Sugars are better controlled. Continue current insulin regimen. January 16 update: His respiratory status is stable and he remains on 2 nasal cannula. He appears slightly dry now. Continue Lasix. Blood pressure is on the lower side. Discontinue Imdur. May restart guideline directed medical therapy for diastolic heart failure if he requires blood pressure medication. Will need to continue to monitor him for increasing liver enzymes which are likely due to hepatic shock. He appears to have also developed contraction alkalosis. Again discontinuing Lasix. Will also discontinue sodium chloride tabs. His sodium is now at a good level. Wound care consulted for a decubitus pressure wound at the sacrum. His thrombocytopenia continues to decline slowly. Holding off on any antiplatelets or DVT prophylaxis. He has been accepted for new permanent residence and is ready for dispo on the social side. Hopefully he will stabilize in all aspects. He appears very frail as well. Adding incentive spirometer. Check another two-view x-ray in the morning. Acute hypoxic respiratory failure -likely due to TACO/TRALI as this developed suddenly after 1 unit PRBC administered on the evening of 01/11. -BNP on 01/03 was 1190. Repeat on 01/13 27,000. reports he usually has skinny fingers and they are now swollen. He also has 1 to 2+ bilateral lower extremity edema below the knees. He is positive 6 L since admission. -responded well to Lasix. Continue with Lasix 40 mg IV b.i.d. continue strict I&O, daily weights. -now down to 3 L nasal cannula from 5. Community-acquired pneumonia -currently on room air. MRSA swab was positive. Started on vancomycin cefepime and levofloxacin which was switched to doxycycline and Augmentin but then the patient developed rashes in antibiotics have been discontinued. -01/11 developed hypoxia requiring 5 L nasal cannula likely due to TACO/TRALI. He has a mil
[2024-01-17 17:12] LABS: Glucose Point of Care 193 mg/dl (65-105)
[2024-01-17] MEDS: SIMVASTATIN 20 MG TABLET 40 MG PO (20:25)
[2024-01-17] MEDS: TAMSULOSIN HCL 0.4 MG CAPSULE PO (20:25)
[2024-01-17 20:26] LABS: Glucose Point of Care 236 mg/dl (65-105)
[2024-01-17] MEDS: DUTASTERIDE 0.5 MG CAPSULE PO (20:26)
[2024-01-17] MEDS: INSULIN GLARGINE (*BKC) 100 UNITS/ML 20 UNITS SUB-Q (20:26)
[2024-01-18] VITALS (13 sets, daily range): BP systolic 115–123; BP diastolic 59–68; PULSE 80–106; RESP 16–20; TEMP 36.2–37.3; O2SAT 92–95
[2024-01-18] MEDS: IPRATROPIUM 0.5 MG/ALBUTEROL SULFATE 2.5 MG AMPUL.NEB 3 ML INHALATION ×3 (02:50→14:01)
[2024-01-18 06:14] LABS: Basophils Percent Auto 0.5 % (0.2-1.2); Eosinophils Absolute Auto 0.1 K/mm3 (0-0.3); Eosinophils Percent Auto 1.1 % (0-4.4); Hemoglobin 9.4 g/dL (14.0-18.0); Immature Granulocyte Absolute 0.12 K/mm3 (0.00-0.031); Immature Granulocyte Percent A 1.5 % (0-0.5); Immature Platelet Fraction Pct 11.2 % (0.9-11.2); Lymphocytes Absolute Auto 1.45 K/mm3 (0.9-3.2); Lymphocytes Percent Auto 18.2 % (18.3-44.2); Mean Corpuscular HGB Conc 30.3 g/dl (32-36); Mean Corpuscular Volume 85.9 fl (80-100); Monocytes Percent Auto 12.7 % (2.6-8.5); Neutrophils Absolute Auto 5.2 K/mm3 (1.3-6.7); Platelet Count Result 69 k/mm3 (150-375); Red Blood Count 3.61 M/mm3 (4.6-6.20); Red Cell Distribution Width 20.1 % (11.5-14.5)
[2024-01-18 06:30] LABS: Alanine Aminotransferase 126 U/L (6-50); Alkaline Phosphatase 621 U/L (38-126); Anion Gap 3 mmol/L (4-12); Aspartate Amino Transferase 271 U/L (17-59); Bilirubin,Total 1.3 mg/dL (0.2-1.3); Blood Urea Nitrogen 22 mg/dL (9-20); Calcium 8.4 mg/dL (8.4-10.2); Carbon Dioxide 32 mmol/L (22-30); Chloride 96 mmol/L (98-107); Estimated CRCL calculation 92 ml/min; Estimated Glomerular Filt Rate > 60; Glucose 140 mg/dL (65-110); Magnesium 1.9 mg/dL (1.6-2.3); Potassium 4.4 mmol/L (3.4-5.0); Sodium 131 mmol/L (137-145)
[2024-01-18 08:24] LABS: Glucose Point of Care 140 mg/dl (65-105)
[2024-01-18] MEDS: SERTRALINE HCL 50 MG TABLET PO (09:07)
[2024-01-18] MEDS: MIRABEGRON 25 MG ER TABLET PO (09:07)
[2024-01-18] MEDS: FOLIC ACID 0.4 MG TABLET PO (09:07)
[2024-01-18] MEDS: FAMOTIDINE 20 MG TABLET PO (09:07)
[2024-01-18] MEDS: FERROUS SULFATE 325 MG TABLET DR BY MOUTH (09:07)
[2024-01-18] MEDS: ACETAMINOPHEN 325 MG TABLET 650 MG PO (09:07)
[2024-01-18] MEDS: MUPIROCIN 2% OINT 22 GM TUBE 1 APPLIC EACH NARE (09:08)
[2024-01-18 12:06] LABS: Glucose Point of Care 148 mg/dl (65-105)
--- NOTE | 2024-01-18 12:46 | PM.DS ---
DS: Admitting Diagnosis Discharge Date January 18, 2024 Admitting Diagnosis Weakness DS: Discharge Diagnosis Discharge Diagnosis (1) Thrombocytopenia: Code(s): D69.6 - Thrombocytopenia, unspecified Status: Acute (2) Transaminitis: Code(s): R74.01 - Elevation of levels of liver transaminase levels Status: Acute (3) TACO (transfusion associated circulatory overload): Code(s): E87.71 - Transfusion associated circulatory overload Status: Acute (4) Anemia: Code(s): D64.9 - Anemia, unspecified Status: Acute (5) Pneumonia: Code(s): J18.9 - Pneumonia, unspecified organism Status: Acute (6) Sepsis: Code(s): A41.9 - Sepsis, unspecified organism Status: Acute DS: Summary Hospital Course Hospital Course: 83-year-old male with a history of diastolic heart failure, hypertension, insulin-dependent diabetes mellitus, depression, chronic hyponatremia, CAD status post stenting to LCX (2012), distal RCA (2010), and PDA (2022) follow at [facility] heart and vascular with Dr. Grady, presents with generalized weakness for 2 weeks.? He previously lived at home with his Yenifer.? Presents from rehab at a alf facility.? Admitted on 01/04/2024. On 01/14 he remains on 3 L nasal cannula and repeat chest x-ray demonstrates increasing pleural effusion greater on the right side.? Continue Lasix 40 mg IV b.i.d. and give another 1 time dose 40 mg IV x1 now.? Check a two view chest x-ray in the morning to see where he goes and possibly have to do a thoracentesis.? Could be related to the blood transfusion and tacos/TRALI.? He is also positive 6 L since admission.? NPO midnight.? Hold Plavix.? Will not restart aspirin or Lovenox as well as his platelets continue to trend down.? Monitor for bleeding.? Will have to consider this and discuss this in great length with the patient and his as he has risk of bleeding with a thoracentesis.? Continue to monitor closely. January 15 update:? He is brought down to 2 L nasal cannula now.? He appears trying the mucous membranes so will take him down to only for 20 mg of Lasix q.day. replace potassium and recheck.? Sugars are better controlled.? Continue current insulin regimen. January 16 update:? His respiratory status is stable and he remains on 2 nasal cannula.? He appears slightly dry now.? Continue Lasix.? Blood pressure is on the lower side.? Discontinue Imdur.? May restart guideline directed medical therapy for diastolic heart failure if he requires blood pressure medication.? Will need to continue to monitor him for increasing liver enzymes which are likely due to hepatic shock.? He appears to have also developed contraction alkalosis.? Again discontinuing Lasix.? Will also discontinue sodium chloride tabs.? His sodium is now at a good level.? Wound care consulted for a decubitus pressure wound at the sacrum.? His thrombocytopenia continues to decline slowly.? Holding off on any antiplatelets or DVT prophylaxis.? He has been accepted for new permanent residence and is ready for dispo on the social side.? Hopefully he will stabilize in all aspects.? He appears very frail as well.? Adding incentive spirometer.? Check another two-view x-ray in the morning. January 17 update: The patient is stable for discharge out of hospital. Will be going to [facility] for permanent placement now as the feels she cannot take care of him due to his weakness. The patient has refused a x-ray this morning. He was diuresed in fact was over diuresed which caused him to look very dry. Lengthy discussions held with the and we decided we would not be aggressive with diuresis. He should obviously have follow-up with his camera operator to which she agreed. His PCP is in [place] and she does not know she can get him there so I advised that the senior care provide the patient with a senior care physician. His TACO has mostly resolved and he is intermittently on 1 L n
[2024-01-18 14:40] LABS: SARS-CoV-2 RNA PCR Negative (Negative)
[2024-01-18 17:22] LABS: Glucose Point of Care 197 mg/dl (65-105)
== END 2024-01-18 19:20 | DRG 871 ==
LOC: ANHED 17:34 → ANHIMU 19:57 → ANHICU 01-07 08:28 → ANH2MED 01-07 23:07
PROVIDERS: Hospitalist; Student in an Organized Health Care Education/Training Program; Admitting Provider Internal Medicine; Emergency Provider Emergency Medicine; PCP Internal Medicine; Visit Provider General Practice
DX: A41.9 Sepsis, unspecified organism (principal); I50.33 Acute on chronic diastolic (congestive) heart failure; J18.9 Pneumonia, unspecified organism; J96.01 Acute respiratory failure with hypoxia; K72.00 Acute and subacute hepatic failure without coma; E87.1 Hypo-osmolality and hyponatremia; L89.156 Pressure-induced deep tissue damage of sacral region; D69.59 Other secondary thrombocytopenia; I11.0 Hypertensive heart disease with heart failure; R65.20 Severe sepsis without septic shock; E11.9 Type 2 diabetes mellitus without complications; I25.10 Atherosclerotic heart disease of native coronary artery without angina pectoris; F41.9 Anxiety disorder, unspecified; F32.A Depression, unspecified; Z20.822 Contact with and (suspected) exposure to COVID-19; Z79.84 Long term (current) use of oral hypoglycemic drugs; Z79.4 Long term (current) use of insulin; Z79.899 Other long term (current) drug therapy; Z22.322 Carrier or suspected carrier of Methicillin resistant Staphylococcus aureus; Z95.5 Presence of coronary angioplasty implant and graft
CPT/HCPCS: 36415; 36430; 70450; 71045; 71046; 71250; 74018; 74176; 76705; 80048; 80053; 80202; 80307; 81001; 81050; 82040; 82274; 82533; 82565; 82570; 82607; 82728; 82746; 82948; 83540; 83550; 83605; 83615; 83735; 83880; 83921; 84145; 84156; 84443; 85014; 85018; 85025; 85027; 85046; 85055; 85610; 85730; 86022; 86140; 86334; 86335; 86850; 86900; 86901; 86923; 87040; 87635; 87637; 87641; 92610; 93005; 94640; 96360; 97110; 97162; 97165; 97530; 97535; 99285; A9270; J0692; J1815; J1940; J1956; J2405; J3370; J3420; J7030; J7050; P9016; P9047